=== PATIENT | male | born 1950 | race Caucasian/White ===

== ENCOUNTER 2017-08-01 19:19 | Inpatient (IN) | payer MEDICARE, OTHER ==
[~2017-08-01] VITALS: Ht 182.9 cm; Wt 95.4 kg
[~2017-08-01 19:19] MED LIST: ASPI-586 PO; AVOD0.5CAP PO; Aspirin PO; DILT180T9 PO; LISI1TAB6 PO; LISI1TAB8 PO; MULT-1030 PO
[2017-08-01] MEDS ORDERED: DEXA4TAB PO (20:08)
[2017-08-01] MEDS ORDERED: HYDR-3812 PO (20:08)
[2017-08-01] MEDS ORDERED: LENA25CA PO (20:08)
[2017-08-01] MEDS ORDERED: ACYC800T PO (20:08)
[2017-08-01] MEDS ORDERED: ONDA8TAB12 PO (20:08)
[2017-08-01] MEDS ORDERED: PANT40TA3 PO (20:08)
[2017-08-01] MEDS ORDERED: SULF-222 PO (20:08)
[2017-08-01] MEDS ORDERED: LEVO750T39 (20:08)
[2017-08-01] MEDS ORDERED: NS IV 1000 ML 1,000 ML IV ONE ×2 (20:12→22:03)
[2017-08-01 20:33] LABS: BASOPHILS % (AUTO) 0 % (0-10); EOSINOPHILS % (AUTO) 0 % (0-10); LYMPHOCYTES # (AUTO) 0.3 X 10^3 (1.0-4.0); LYMPHOCYTES % (AUTO) 5 % (12-44); MEAN CORPUSCULAR HEMOGLOBIN 31 PG (25-34); MEAN CORPUSCULAR HGB CONC 36 G/DL (32-36); MEAN CORPUSCULAR VOLUME 87 FL (80-99); MEAN PLATELET VOLUME 10.7 FL (7.4-10.4); MONOCYTES # (AUTO) 0.2 X 10^3 (0.0-1.0); MONOCYTES % (AUTO) 3 % (0-12); NEUTROPHILS # (AUTO) 4.8 X 10^3 (1.8-7.8); NEUTROPHILS % (AUTO) 92 % (42-75); PLATELET COUNT 121 10^3/uL (130-400); RED BLOOD COUNT 3.15 10^6/uL (4.35-5.85); RED CELL DISTRIBUTION WIDTH 14.7 % (10.0-14.5); WHITE BLOOD COUNT 5.2 10^3/uL (4.3-11.0)
[2017-08-01 20:38] LABS: PROTHROMBIN TIME PATIENT 13.7 SEC (12.2-14.7)
--- NOTE | 2017-08-01 20:40 | Diagnostic Imaging Report ---
EXAM: Portable chest. COMPARISON to prior study from July 06, 2015. INDICATION: Weakness and low blood pressure. FINDINGS: There is enlargement of the cardiac silhouette without evidence of failure. There do however appear to be chronic interstitial changes within the lungs. Correlate for smoking history. No focal alveolar consolidation is evident. There is no evidence of an effusion. There is no pneumothorax. No suspicious or acute osseous abnormality is evident. IMPRESSION: 1. Enlarged cardiac silhouette without evidence of failure. 2. Chronic interstitial changes within the lungs suggests interstitial lung disease. Correlate for a smoking history. 3. No focal alveolar consolidation or pleural effusion demonstrated. Dictated by: Dictated on workstation # [id number]
[2017-08-01] MEDS ORDERED: RT-ALBUTEROL/IPRATROPIUM 3 ML (DUONEB) VIAL INH ONE (20:45)
[2017-08-01 20:48] LABS: ALBUMIN 3.3 GM/DL (3.2-4.5); BILIRUBIN,TOTAL 1.2 MG/DL (0.1-1.0); CALCIUM 9.1 MG/DL (8.5-10.1); CREATININE SERUM 1.21 MG/DL (0.60-1.30); POTASSIUM 4.1 MMOL/L (3.6-5.0); TOTAL PROTEIN 5.9 GM/DL (6.4-8.2)
[2017-08-01 21:01] LABS: BAND NEUTROPHILS 4 %; LYMPHOCYTES % (MANUAL) 12 %; NEUTROPHILS % (MANUAL) 81 %; POIKILOCYTOSIS SLIGHT
--- NOTE | 2017-08-01 21:04 | ED General ---
General Chief Complaint: Cardiac/General Problems Stated Complaint: WEAKNESS/LOW BP Nursing Triage Note: patient reports hypotension and generalized weakness today, patient reports was evaluated by oncologist today and given shot. patient reports was hypotensive then too Nursing Sepsis Screen: No Definite Risk Source of Information: Patient, Spouse Exam Limitations: No Limitations History of Present Illness Time Seen by Provider: 20:13 Initial Comments Patient presents to ER by private conveyance with a chief complaint of feeling poorly today. He has a history of multiple myeloma for which she was given a shot by his cancer doctor the day. He says at the doctor's office he was told his blood pressure was a little on the low side and that if he started feeling worse she should present to the ER. He has general malaise, weakness and tiredness. He has a modest cough but it's about gone. For the past week is been treated with Levaquin for a productive cough however never had a x-ray. He is on Bactrim prophylactically. He has no significant coronary history. He doesn't history of paroxysmal atrial fibrillation for which she uses aspirin full dose but does not take any anti-platelet's or blood thinners. He has not felt any palpitations or chest pain or shortness of breath. He does have a history of asthma. He takes albuterol occasionally and does not been using it much recently. His cough is nonproductive at this time. He has no nausea, chills, fever, vomiting, diarrhea, constipation. No rashes. Allergies and Home Medications Allergies Coded Allergies: Penicillins (Unverified Allergy, Unknown, 07/06/15) Home Medications Acyclovir 800 Mg Tablet, (Reported) Aspirin 81 Mg Tablet.dr, 81 MG PO DAILY, (Reported) Dexamethasone 4 Mg Tablet, (Reported) Diltiazem HCl 180 Mg Tab.er.24h, 180 MG PO DAILY, #30 Ref 11 Prescribed by: BRIJESH ELMORE on 07/07/15 1615 Dutasteride 0.5 Mg Cap, 0.5 MG PO DAILY, (Reported) Hydrocodone/Acetaminophen 1 Each Tablet, (Reported) Lenalidomide 25 Mg Capsule, (Reported) Levofloxacin 750 Mg Tablet, (Reported) Lisinopril/Hydrochlorothiazide 1 Each Tablet, 2 TAB PO DAILY, (Reported) TAKES 2 (20-12.5MG) TABLETS Multivits,Ca,Min/Iron/FA/Lycop 1 Each Tablet, 1 TAB PO DAILY, (Reported) Ondansetron HCl 8 Mg Tablet, (Reported) Pantoprazole Sodium 40 Mg Tablet., (Reported) Sulfamethoxazole/Trimethoprim 1 Each Tablet, (Reported) [Aspirin] 325 MG TABEC, 325 MG PO DAILY Prescribed by: BRIJESH ELMORE on 07/07/15 9103 Constitutional: No chills, No diaphoresis, dizziness, No fever, malaise, weakness EENTM: No ear discharge, No ear pain, No blurred vision, No double vision Respiratory: cough, No hemoptysis, No phlegm, No short of breath, No wheezing Cardiovascular: No chest pain, No edema Gastrointestinal: No abdominal pain, No constipation, No diarrhea, No nausea, No vomiting Genitourinary: No discharge, No dysuria, hesitancy Musculoskeletal: No back pain, No joint pain Skin: No pruritus, No rash Psychiatric/Neurological: Denies Headache, Denies Numbness, Denies Paresthesia Past Ofrrnnv-Qbdipf-Ejihpx Hx Patient Social History Alcohol Use: Denies Use Recreational Drug Use: No Smoking Status: Former Smoker Recent Foreign Travel: No Contact w/Someone Who Travel: No Recent Infectious Disease Expo: No Physical Abuse: No Sexual Abuse: No Immunizations Up To Date Tetanus Booster (TDap): Unknown PED Vaccines UTD: No Date of Pneumonia Vaccine: Aug 31, 2007 Surgeries History of Surgeries: Yes (CYST FROM LEFT WRIST REMOVED, CYST ON TESTICLE REMOVED, "MICROWAVE" TURP) Surgeries: Orthopedic, Testicular, Transurethral Resection Respiratory History of Respiratory Disorde: Yes Respiratory Disorders: Asthma Cardiovascular History of Cardiac Disorders: Yes (New onset of AFib 07/06/15) Cardiac Disorders: Hypertension Neurological History of Neurological Disord: No Reproductive System Hx Reproductive Disorders: No Genitourinary Genitourinary Disorders: Benign Prostatic Hyperpl, Prostate Problems Gastrointestinal History of Gastrointestinal Di: Yes Gastrointestinal Disorders: Hiatal Hernia Musculoskeletal History of Musculoskeletal Dis: Yes Musculoskeletal Disorders: Arthritis Endocrine History of Endocrine Disorders: No Cancer History of Cancer: No Psychosocial History of Psychiatric Problem: No Suicide Risk Score: 0 Integumentary History of Skin or Integumenta: No Blood Transfusions History of Blood Disorders: No Adverse Reaction to a Blood Tr: No Family Medical History Family Medial History: Alzheimer's disease 19 MOTHER, , Age:80, Onset:Unknown Prostate problems 19 FATHER, , Age:72, Onset:60 years & older No Family History of: AIDS Physical Exam-Suspected Sepsis Physical Exam Vital Signs Vital Sign - Last 12Hours 08/01/17 20:03 Temp 98.7 Pulse 93 Resp 16 B/P (MAP) 91/53 Pulse Ox 95 O2 Delivery Room Air Capillary Refill : Less Than 3 Seconds Blood Pressure Mean: 66 General Appearance: WD/WN, Moderate Distress Eyes: Bilateral Eye Normal Inspection, Bilateral Eye PERRL, Bilateral Eye EOMI HEENT: PERRL/EOMI, TMs Normal, Normal ENT Inspection, Pharynx Normal Neck: Full Range of Motion, Normal Inspection, Non Tender, Supple Respiratory: Chest Non Tender, Lungs Clear, Normal Breath Sounds, No Accessory Muscle Use, Decreased Breath Sounds Cardiovascular: Regular Rate, Rhythm, No Edema, No Gallop, No Murmur Gastrointestinal: Normal Bowel Sounds, No Organomegaly, No Pulsatile Mass, Non Tender, Soft Extremity: Normal Capillary Refill, Normal Inspection, Non Tender, No Calf Tenderness, No Pedal Edema Neurologic/Psychiatric: Alert, Oriented x3, No Motor/Sensory Deficits, clinical professor II- XII Norm as Tested Skin: normal color, warm/dry Lymphatic: No Adenopathy Focused Exam Evaluation Lactate Level Laboratory Tests 08/01/17 20:20: Lactic Acid Level 2.64*H Lactic Acid Level Laboratory Tests Test 08/01/17 20:20 Lactic Acid Level 2.64 MMOL/L (0.50-2.00) *H Progress/Results/Core Measures Suspected Sepsis Recent Fever Within 48 Hours: No Infection Criteria Present: None New/Unexplained Altered Menta: No Sepsis Screen: No Definite Risk Sepsis Diagnosis: SIRS Temperature:98.7 Pulse: 93 Respiratory Rate: 16 Laboratory Tests 08/01/17 20:20: White Blood Count 5.2 Blood Pressure 91 /53 Mean: 66 Laboratory Tests 08/01/17 20:20: Lactic Acid Level 2.64*H Laboratory Tests 08/01/17 20:20: Creatinine 1.21, INR Comment 1.0, Platelet Count 121L, Total Bilirubin 1.2H 08/01/17 21:40: Creatinine 1.16 Results/Orders Lab Results Laboratory Tests Test 08/01/17 20:20 08/01/17 21:40 Range/Units White Blood Count 5.2 4.3-11.0 10^3/uL Red Blood Count 3.15 L 4.35-5.85 10^6/uL Hemoglobin 9.8 L 13.3-17.7 G/DL Hematocrit 28 L 40-54 % Mean Corpuscular Volume 87 80-99 FL Mean Corpuscular Hemoglobin 31 25-34 PG Mean Corpuscular Hemoglobin Concent 36 32-36 G/DL Red Cell Distribution Width 14.7 H 10.0-14.5 % Platelet Count 121 L 130-400 10^3/uL Mean Platelet Volume 10.7 H 7.4-10.4 FL Neutrophils (%) (Auto) 92 H 42-75 % Lymphocytes (%) (Auto) 5 L 12-44 % Monocytes (%) (Auto) 3 0-12 % Eosinophils (%) (Auto) 0 0-10 % Basophils (%) (Auto) 0 0-10 % Neutrophils # (Auto) 4.8 1.8-7.8 X 10^3 Lymphocytes # (Auto) 0.3 L 1.0-4.0 X 10^3 Monocytes # (Auto) 0.2 0.0-1.0 X 10^3 Eosinophils # (Auto) 0.0 0.0-0.3 10^3/uL Basophils # (Auto) 0.0 0.0-0.1 10^3/uL Neutrophils % (Manual) 81 % Lymphocytes % (Manual) 12 % Monocytes % (Manual) 3 % Band Neutrophils 4 % Poikilocytosis SLIGHT Prothrombin Time 13.7 12.2-14.7 SEC INR Comment 1.0 0.8-1.4 Activated Partial Thromboplast Time 23 L 24-35 SEC Sodium Level 116 *L 117 *L 135-145 MMOL/L Potassium Level 4.1 3.8 3.6-5.0 MMOL/L Chloride Level 90 L 93 L 98-107 MMOL/L Carbon Dioxide Level 17 L 17 L 21-32 MMOL/L Anion Gap 9 7 5-14 MMOL/L Blood Urea Nitrogen 29 H 29 H 7-18 MG/DL Creatinine 1.21 1.16 0.60-1.30 MG/DL Estimat Glomerular Filtration Rate 60 > 60 BUN/Creatinine Ratio 24 25 Glucose Level 114 H 95 70-105 MG/DL Lactic Acid Level 2.64 *H 0.50-2.00 MMOL/L Calcium Level 9.1 8.7 8.5-10.1 MG/DL Magnesium Level 2.0 1.8-2.4 MG/DL Total Bilirubin 1.2 H 0.1-1.0 MG/DL Aspartate Amino Transf (AST/SGOT) 9 5-34 U/L Alanine Aminotransferase (ALT/SGPT) 12 0-55 U/L Alkaline Phosphatase 69 40-136 U/L Troponin I < 0.30 <0.30 NG/ML Total Protein 5.9 L 6.4-8.2 GM/DL Albumin 3.3 3.2-4.5 GM/DL My Orders Orders - DANAYBENITO MILLS Troponin I (08/01/17 20:12) Ekg Tracing (08/01/17 20:12) Saline Lock/Iv-Start (08/01/17 20:12) Monitor-Rhythm Ecg Trace Only (08/01/17 20:12) Magnesium (08/01/17 20:12) Cbc With Automated Diff (08/01/17 20:12) Comprehensive Metabolic Panel (08/01/17 20:12) Lactic Acid Analyzer (08/01/17 20:12) Blood Culture (08/01/17 20:12) Sputum Culture (08/01/17 20:12) Ua Culture If Indicated (08/01/17 20:12) Protime With Inr (08/01/17 20:12) Partial Thromboplastin Time (08/01/17 20:12) O2 (08/01/17 20:12) Vital Signs Adult Sepsis Patie Q1HR (08/01/17 20:12) Remove Rings In Anticipation O (08/01/17 20:12) Ns Iv 1000 Ml (Sodium Chloride 0.9%) (08/01/17 20:12) Chest 1 View, Ap/Pa Only (08/01/17 20:25) Albuterol/Ipra Inhalation Soln (Duoneb I (08/01/17 20:45) Svn Sm Volume Nebulizer Rt-Rfs (08/01/17 20:32) Manual Differential (08/01/17 20:20) Ns Iv 1000 Ml (Sodium Chloride 0.9%) (08/01/17 21:45) Basic Metabolic Panel (08/01/17 21:33) Saline Lock/Iv-Start (08/01/17 22:03) Ns Iv 1000 Ml (Sodium Chloride 0.9%) (08/01/17 22:03) Straight Cath (Urinary) (08/01/17 22:04) Vancomycin Injection (Vancomycin Injecti (08/01/17 22:15) Cefepime Injection (Maxipime Injection) (08/01/17 22:15) Medications Given in ED Current Medications Medications Dose Ordered Sig/Bebe Route Start Time Stop Time Status Last Admin Dose Admin Sodium Chloride 1,000 ml @ 0 mls/hr Q0M ONCE IV 08/01/17 20:12 08/01/17 20:15 DC 08/01/17 20:24 0 MLS/HR Vital Signs/I&O Vital Sign - Last 12Hours 08/01/17 08/01/17 08/01/17 20:03 20:41 20:53 Temp 98.7 Pulse 93 Resp 16 B/P (MAP) 91/53 Pulse Ox 95 96 96 O2 Delivery Room Air Room Air Room Air Intake and Output 08/02/17 00:00 Intake Total 1000 ml Balance 1000 ml Capillary Refill : Less Than 3 Seconds Blood Pressure Mean: 66 Progress Note : Time: 22:08 Progress Note We'll go ahead and obtain a straight catheter for urine before getting the antibiotics. Go ahead and give him fluids despite hyponatremia because his blood pressure is not really well responded to 1 L. Repeat sodium was 117 after the first liter. ECG Initial ECG Impression Date: Aug 01, 2017 Initial ECG Impression Time: 20:25 Initial ECG Rate: 90 Initial ECG Rhythm: Normal Sinus Initial ECG Intervals: Normal Initial ECG Impression: Normal, Nonspecific Changes Initial ECG Comparisson: No Previous ECG Available Comment No ST wave elevation or depression. Diagnostic Imaging Diagonstic Imaging: Xray Plain Films/CT/US/NM/MRI: chest Comments NAME: KIRSTENDILAN L MED REC#: [id number] PHYSICIAN: BENITO JON MD CC: VANCE FRANZ MD; BENITO JON Page 1 of 1 RADIOLOGY REPORT VIA [facility]. [place], [place] CC: VANCE FRANZ MD; BENITO JON Page 1 of 1 RADIOLOGY REPORT NAME: DILAN CURTIS MED REC#: [id number] PT STATUS: REG ER : 1950 PHYSICIAN: BENITO JON MD ADMIT DATE: 08/01/17/ER Signed Date of Exam: 08/01/17 CHEST 1 VIEW, AP/PA ONLY EXAM: Portable chest. COMPARISON to prior study from July 06, 2015. INDICATION: Weakness and low blood pressure. FINDINGS: There is enlargement of the cardiac silhouette without evidence of failure. There do however appear to be chronic interstitial changes within the lungs. Correlate for smoking history. No focal alveolar consolidation is evident. There is no evidence of an effusion. There is no pneumothorax. No suspicious or acute osseous abnormality is evident. IMPRESSION: 1. Enlarged cardiac silhouette without evidence of failure. 2. Chronic interstitial changes within the lungs suggests interstitial lung disease. Correlate for a smoking history. 3. No focal alveolar consolidation or pleural effusion demonstrated. Dictated by: Dictated on workstation # [id number] Dict: 08/01/172033 Trans: 08/01/172057 Interpreted by: VANCE FRANZ MD Electronically signed by: VANCE FRANZ MD 08/01/172057 Reviewed: Reviewed by Me Departure Communication (Admissions) Time/Spoke to Admitting Phy: 22:[address] Jackson she is willing to accept the patient and agrees with the initial antibiotic choices. We have discussed the hyponatremia as well as the likely sepsis and the recent history of Levaquin use. Impression Impression: Primary Impression: Hypotension Qualified Codes: I95.9 - Hypotension, unspecified Additional Impressions: Sepsis Qualified Codes: A41.9 - Sepsis, unspecified organism Hyponatremia Disposition: ADMITTED INPATIENT Condition: Stable Admissions Decision to Admit Reason: Admit from ER (General) Decision to Admit/Date: Aug 01, 2017 Time/Decision to Admit Time: 22:09 Departure-Patient Inst. Referrals: LOUIS CORBIN MD (PCP/Family) Primary Care Physician Copy Copies To 1: LOUIS CORBIN MD, TITUS J Aug 01, 2017 21:04
[2017-08-01] MEDS ORDERED: NS IV 1000 ML 1,000 ML IV SCH (21:45)
[2017-08-01 22:04] LABS: ANION GAP 7 MMOL/L (5-14); BLOOD UREA NITROGEN 29 MG/DL (7-18); BUN/CREATININE RATIO 25; CALCIUM 8.7 MG/DL (8.5-10.1); CARBON DIOXIDE 17 MMOL/L (21-32); CHLORIDE 93 MMOL/L (98-107); CREATININE SERUM 1.16 MG/DL (0.60-1.30); GFR ESTIMATED > 60; GLUCOSE 95 MG/DL (70-105); POTASSIUM 3.8 MMOL/L (3.6-5.0)
[2017-08-01 22:08] LABS: SODIUM 117 MMOL/L (135-145)
[2017-08-01] MEDS ORDERED: CEFEPIME INJECTION 2,000 MG in NS (IVPB) 50 ML IV ONE (22:15)
[2017-08-01] MEDS ORDERED: VANCOMYCIN INJECTION 1,000 MG in NS (IVPB) 250 ML IV ONE (22:15)
[2017-08-01 22:26] LABS: KETONES,URINE NEGATIVE (NEGATIVE); LEUKOCYTE ESTERASE ,URINE 1+ (NEGATIVE); NITRITE,URINE NEGATIVE (NEGATIVE); PH,URINE 5 (5-9); PROTEIN,URINE 2+ (NEGATIVE); UROBILINOGEN,URINE 1 MG/DL (NORMAL)
[2017-08-01 22:45] LABS: BILIRUBIN,URINE 1+ (NEGATIVE)
[2017-08-01 23:00] VITALS: BP 110/63
[2017-08-01] MEDS ORDERED: VANCOMYCIN 1000 MG/VIAL ONE (23:10)
[2017-08-01] MEDS ORDERED: NS (IVPB) 250 ML ONE (23:11)
[2017-08-01 23:15] VITALS: BP 92/53
[2017-08-01] MEDS ORDERED: ONDANSETRON 4 MG/2 ML (SDV) Z0FRAN IV PRN (23:15)
[2017-08-01] MEDS ORDERED: NOREPINEPHRINE 4 MG in D5W 250 ML (IVPB) 250 ML IV SCH (23:15)
[2017-08-01] MEDS ORDERED: ACETAMINOPHEN 500 MG TAB (TYLENOL) PO PRN (23:15)
[2017-08-01] MEDS ORDERED: CATHETER FLUSH 10 ML SYR IV PRN (23:15)
[2017-08-01 23:30] VITALS: BP 95/53
[2017-08-01] MEDS ORDERED: NS IV 500 ML 500 ML IV ONE (23:30)
[2017-08-01 23:45] VITALS: BP 94/52
[2017-08-01] MEDS: CEFEPIME 2 GM/NS 50 ML IVPB IV SCH ×2 (23:51)
[2017-08-01] MEDS: NS IV 1000 ML 1,000 ML IV SCH (23:52)
[2017-08-02] VITALS (24 sets, daily range): BP systolic 76–128; BP diastolic 47–91
[2017-08-02 00:10] LABS: ANION GAP 7 MMOL/L (5-14); BLOOD UREA NITROGEN 30 MG/DL (7-18); BUN/CREATININE RATIO 26; CALCIUM 8.5 MG/DL (8.5-10.1); CARBON DIOXIDE 17 MMOL/L (21-32); CHLORIDE 94 MMOL/L (98-107); CREATININE SERUM 1.14 MG/DL (0.60-1.30); GFR ESTIMATED > 60; GLUCOSE 81 MG/DL (70-105); POTASSIUM 4.1 MMOL/L (3.6-5.0)
[2017-08-02 00:11] LABS: SODIUM 118 MMOL/L (135-145)
[2017-08-02 04:14] LABS: BASOPHILS % (AUTO) 0 % (0-10); EOSINOPHILS % (AUTO) 0 % (0-10); LYMPHOCYTES # (AUTO) 0.2 X 10^3 (1.0-4.0); LYMPHOCYTES % (AUTO) 5 % (12-44); MEAN CORPUSCULAR HEMOGLOBIN 31 PG (25-34); MEAN CORPUSCULAR HGB CONC 35 G/DL (32-36); MEAN CORPUSCULAR VOLUME 88 FL (80-99); MONOCYTES # (AUTO) 0.5 X 10^3 (0.0-1.0); MONOCYTES % (AUTO) 11 % (0-12); NEUTROPHILS # (AUTO) 4.3 X 10^3 (1.8-7.8); NEUTROPHILS % (AUTO) 85 % (42-75); PLATELET COUNT 112 10^3/uL (130-400); RED BLOOD COUNT 2.95 10^6/uL (4.35-5.85); RED CELL DISTRIBUTION WIDTH 14.9 % (10.0-14.5); WHITE BLOOD COUNT 5.1 10^3/uL (4.3-11.0)
[2017-08-02 04:35] LABS: ANION GAP 6 MMOL/L (5-14); BLOOD UREA NITROGEN 28 MG/DL (7-18); BUN/CREATININE RATIO 26; CALCIUM 8.5 MG/DL (8.5-10.1); CARBON DIOXIDE 18 MMOL/L (21-32); CHLORIDE 95 MMOL/L (98-107); CREATININE SERUM 1.06 MG/DL (0.60-1.30); GFR ESTIMATED > 60; GLUCOSE 64 MG/DL (70-105); MAGNESIUM 2.3 MG/DL (1.8-2.4); PHOSPHORUS 2.2 MG/DL (2.3-4.7); POTASSIUM 4.4 MMOL/L (3.6-5.0)
[2017-08-02 04:37] LABS: SODIUM 119 MMOL/L (135-145)
[2017-08-02] MEDS: NS IV 1000 ML 1,000 ML IV SCH ×2 (05:48→15:50)
[2017-08-02] MEDS: POTASSIUM CL 10MEQ/50ML IVPB 50 ML IV SCH (06:10)
[2017-08-02] MEDS: MAGNESIUM 1 GM/100 ML IVPB 100 ML IV SCH (06:10)
[2017-08-02] MEDS: KCL 20 MEQ TAB (K-DUR) PO SCH (06:10)
[2017-08-02] MEDS: CATHETER FLUSH 10 ML SYR IV SCH ×2 (06:11→14:32)
[2017-08-02] MEDS: VANCOMYCIN 1250 MG/NS 250 ML IVPB IV SCH ×4 (08:49→20:30)
--- NOTE | 2017-08-02 09:20 | Diagnostic Imaging Report ---
CLINICAL INDICATION: Follow-up sepsis. EXAM: Portable chest x-ray upright view. COMPARISON: Portable chest x-ray upright view dated 08/01/2017. FINDINGS: There is mild atelectasis left lung base and right lung base. Otherwise, lungs are clear. There is no pleural effusion or pneumothorax. There is stable cardiomegaly with no significant pulmonary vascular congestion. The remainder of this exam shows no significant interval change compared to the prior study of comparison. IMPRESSION: 1: Stable bibasilar atelectasis with no interval lung infiltrate. 2: Stable cardiomegaly with no significant pulmonary vascular congestion. Dictated by: Dictated on workstation # [id number]
[2017-08-02] MEDS ORDERED: ALLO300T2 PO (11:09)
[2017-08-02] MEDS ORDERED: DOCU-143 PO (11:09)
[2017-08-02] MEDS ORDERED: GUAI-813 PO (11:09)
[2017-08-02] MEDS ORDERED: FLUT9.9S NS (11:09)
[2017-08-02] MEDS ORDERED: RT-ALBUINH IH (11:09)
[2017-08-02] MEDS ORDERED: POLY17PO6 PO (11:09)
[2017-08-02] MEDS ORDERED: CHOL500050 PO (11:09)
--- NOTE | 2017-08-02 11:24 | History & Physical-Hospitalist ---
HPI History of Present Illness: HPI/Chief Complaint CC: Sepsis with hypotension HPI: This is a 67-year-old white male clinic patient of Dr. Connelly and Viktoria and Dr. Chambers at [facility] along with Dr. Santana at [facility] who presented to the emergency room after feeling very badly after receiving cancer treatment for MM yesterday afternoon. Dr. Santana had recommended holding lisinopril home medicine due to low blood pressure yesterday and he was found to have very low blood pressure and evidence of sepsis with elevated lactic acid yesterday in the ER. He was empirically placed on IV antibiotics of vancomycin and Cefepime and Levophed and has dramatically improved since admission. Levophed has been DC and CXR revealed ATX but no infiltrate so ordered Nebs and IS and noted that he had just completed Levaquin abx this week for empiric treatment of bronchitis. Dr Delacruz has been consulted and will see the patient. I have initiated a fluid restriction of 750cc/day. Source: patient, family, RN/MD Exam Limitations: no limitations Date Seen 08/02/17 Time Seen by Provider: 10:00 Attending Physician Ana Messina Wen-Chou MD Referring Physician Date of Admission Aug 01, 2017 at 22:10 Home Medications & Allergies Home Medications Reviewed patient Home Medication Reconciliation Form Allergies Allergies Coded Allergies Penicillins (Unverified Allergy, Unknown, 07/06/15) Past Dtyqmrm-Xpugde-Qzvoez Hx Patient Social History Marrital Status: Employed/Student: retired ([employer]) Alcohol Use: Denies Use Recreational Drug Use: No Smoking Status: Former Smoker Physical Abuse Screen: No Sexual Abuse: No Recent Foreign Travel: No Contact w/other who traveled: No Recent Infectious Disease Expo: No Immunizations Up To Date Tetanus Booster (TDap): Unknown Pediatric: No Date of Pneumonia Vaccine: Aug 31, 2007 Seasonal Allergies Seasonal Allergies: No Surgeries Yes (CYST FROM LEFT WRIST REMOVED, CYST ON TESTICLE REMOVED, "MICROWAVE" TURP) Orthopedic, Testicular, Transurethral Resection Respiratory Yes Asthma Cardiovascular Yes (New onset of AFib 07/06/15) Hypertension Neurological No Reproductive System Hx Reproductive Disorders: No Genitourinary Yes Benign Prostatic Hyperpl, Prostate Problems Gastrointestinal Yes Chronic Constipation, Hiatal Hernia Musculoskeletal Yes Arthritis, Fractures (sternal fracture spontaneous) Endocrine History of Endocrine Disorders: No Cancer Yes (MM 06/16) Psychosocial History of Psychiatric Problem: No Integumentary History of Skin or Integumenta: No Blood Transfusions History of Blood Disorders: No Adverse Reaction to a Blood Tr: No Family Medical History Family Hx: Alzheimer's disease 19 MOTHER, , Age:80, Onset:Unknown Prostate problems 19 FATHER, , Age:72, Onset:60 years & older No Family History of: AIDS Review of Systems Constitutional: see HPI, dizziness, weakness EENTM: no symptoms reported Respiratory: no symptoms reported Cardiovascular: no symptoms reported Gastrointestinal: no symptoms reported Genitourinary: decreased output Musculoskeletal: joint pain Skin: no symptoms reported Psychiatric/Neurological: No Symptoms Reported All Other Systems Reviewed Negative Unless Noted: Yes Physical Exam Physical Exam Vital Signs Vital Sign - Last 12Hours 08/01/17 20:03 Temp 98.7 Pulse 93 Resp 16 B/P (MAP) 91/53 Pulse Ox 95 O2 Delivery Room Air Capillary Refill : Less Than 3 Seconds General Appearance: No Apparent Distress, WD/WN, Chronically ill, Other ( anxious) Eyes: Bilateral Eye Normal Inspection, Bilateral Eye PERRL HEENT: PERRL/EOMI, Normal ENT Inspection, Pharynx Normal Neck: Full Range of Motion, Normal Inspection, Non Tender, Supple, Carotid Bruit Respiratory: Chest Non Tender, Lungs Clear, Normal Breath Sounds, No Accessory Muscle Use, No Respiratory Distress Cardiovascular: Regular Rate, Rhythm, No Edema, No Gallop, No JVD, No Murmur, Normal Peripheral Pulses Gastrointestinal: Normal Bowel Sounds, No Organomegaly, No Pulsatile Mass, Non Tender, Soft Back: Normal Inspection, No CVA Tenderness, No Vertebral Tenderness Extremity: Normal Capillary Refill, Normal Inspection, Normal Range of Motion, Non Tender, No Calf Tenderness, No Pedal Edema Neurologic/Psychiatric: Alert, Oriented x3, No Motor/Sensory Deficits, Normal Mood/Affect Skin: Normal Color, Warm/Dry Lymphatic: No Adenopathy Results Results/Procedures Lab Laboratory Tests 08/01/17 20:20 08/01/17 21:40 08/01/17 23:37 08/02/17 03:52 Assessment/Plan Admission Diagnosis Assessment: Sepsis of uncertain source but could be related to medications given yesterday and cancer Center for multiple myeloma but atelectasis on chest x-ray and recently completed Levaquin antibiotic for presumed bronchitis Severe hyponatremia of 116 likely medication related placed on fluid restriction and gentle IV fluids of normal saline and improved to 119 today History of atrial fibrillation maintain on Cardizem and aspirin History of asthma and former smoking Multiple myeloma diagnosed May 2017 induction initiated at [facility] BPH history Hypertension as an outpatient generally before this episode held lisinopril per cancer doctor recommendation starting yesterday 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
[2017-08-02] MEDS ORDERED: RT-ALBUTEROL SULF 2.5 MG/3 ML PRE-MIX VIAL IH PRN (11:30)
[2017-08-02] MEDS ORDERED: ONDANSETRON 8 MG (ZOFRAN) ORAL DISSOLVE TAB PO PRN (11:45)
[2017-08-02] MEDS ORDERED: PATIENT MAY USE OWN MEDS, ALL MC SCH (12:15)
[2017-08-02] MEDS ORDERED: PANTOPRAZOLE 40 MG (PROTONIX) TAB PO ONE (12:20)
[2017-08-02] MEDS ORDERED: DOCUSATE SODIUM 100 MG (COLACE) CAP PO ONE (12:20)
[2017-08-02] MEDS ORDERED: FINASTERIDE (PROSCAR) 5 MG TAB PO ONE (12:20)
[2017-08-02] MEDS ORDERED: ASPIRIN E.C. 325 MG (ECOTRIN) TABLET PO ONE (12:21)
[2017-08-02] MEDS ORDERED: POLYETHYLENE GLYCOL 17 GM (MIRALAX) PACK ONE (12:21)
[2017-08-02] MEDS ORDERED: ALLOPURINOL 300 MG (ZYLOPRIM) TAB ONE (12:21)
[2017-08-02] MEDS ORDERED: DILTIAZEM 180 MG (CARDIZEM CD) CAP PO ONE (12:21)
[2017-08-02] MEDS ORDERED: ACYCLOVIR 400 MG TABLET (ZOVIRAX) PO ONE (12:28)
[2017-08-02] MEDS: CEFEPIME 2 GM/NS 50 ML IVPB IV SCH ×4 (12:30→22:45)
[2017-08-02] MEDS: DOCUSATE SODIUM 100 MG (COLACE) CAP PO SCH ×2 (12:31→20:31)
[2017-08-02] MEDS: POLYETHYLENE GLYCOL 17 GM (MIRALAX) PACK PO SCH (12:33)
[2017-08-02] MEDS: DILTIAZEM 180 MG (CARDIZEM CD) CAP PO SCH (12:33)
[2017-08-02] MEDS: PANTOPRAZOLE 40 MG (PROTONIX) TAB PO SCH (12:35)
[2017-08-02] MEDS: ALLOPURINOL 300 MG (ZYLOPRIM) TAB PO SCH (12:36)
[2017-08-02] MEDS: ASPIRIN E.C. 325 MG (ECOTRIN) TABLET PO SCH (12:36)
[2017-08-02] MEDS: FINASTERIDE (PROSCAR) 5 MG TAB PO SCH (12:36)
[2017-08-02] MEDS: ACYCLOVIR 400 MG TABLET (ZOVIRAX) PO SCH ×2 (12:37→20:31)
[2017-08-02] MEDS: FLUTICASONE NASAL SPRAY (FLONASE) 16 GM BTL NS SCH ×2 (12:43→20:30)
[2017-08-02] MEDS ORDERED: RT-ALBUTEROL SULF 2.5 MG/3 ML PRE-MIX VIAL IH SCH (14:00)
[2017-08-02] MEDS: guaiFENesin/CODEINE (ROBITUSSIN AC) 10ML UDC PO PRN (15:18)
[2017-08-02] MEDS: CALCIUM CARBONATE 500 MG (TUMS) TAB.CHEW PO PRN (20:31)
[2017-08-03] VITALS (15 sets, daily range): BP systolic 98–129; BP diastolic 59–78
[2017-08-03] MEDS: CATHETER FLUSH 10 ML SYR IV SCH ×4 (00:16→21:40)
[2017-08-03] MEDS: CALCIUM CARBONATE 500 MG (TUMS) TAB.CHEW PO PRN ×3 (02:00→21:32)
[2017-08-03] MEDS: NS IV 1000 ML 1,000 ML IV SCH (02:21)
[2017-08-03] MEDS: HYDROcodone/APAP 5 MG/325 MG (LORTAB) TAB PO PRN ×2 (02:21→21:33)
[2017-08-03 04:16] LABS: BASOPHILS % (AUTO) 0 % (0-10); EOSINOPHILS % (AUTO) 1 % (0-10); LYMPHOCYTES # (AUTO) 0.4 X 10^3 (1.0-4.0); LYMPHOCYTES % (AUTO) 22 % (12-44); MEAN CORPUSCULAR HEMOGLOBIN 32 PG (25-34); MEAN CORPUSCULAR HGB CONC 35 G/DL (32-36); MEAN CORPUSCULAR VOLUME 89 FL (80-99); MEAN PLATELET VOLUME 12.3 FL (7.4-10.4); MONOCYTES # (AUTO) 0.3 X 10^3 (0.0-1.0); MONOCYTES % (AUTO) 16 % (0-12); NEUTROPHILS # (AUTO) 1.2 X 10^3 (1.8-7.8); NEUTROPHILS % (AUTO) 62 % (42-75); PLATELET COUNT 64 10^3/uL (130-400); RED BLOOD COUNT 2.86 10^6/uL (4.35-5.85); RED CELL DISTRIBUTION WIDTH 15.1 % (10.0-14.5)
[2017-08-03 04:37] LABS: ANION GAP 6 MMOL/L (5-14); BLOOD UREA NITROGEN 17 MG/DL (7-18); BUN/CREATININE RATIO 22; CALCIUM 8.5 MG/DL (8.5-10.1); CARBON DIOXIDE 16 MMOL/L (21-32); CHLORIDE 102 MMOL/L (98-107); CREATININE SERUM 0.78 MG/DL (0.60-1.30); GFR ESTIMATED > 60; GLUCOSE 85 MG/DL (70-105); MAGNESIUM 2.3 MG/DL (1.8-2.4); PHOSPHORUS 1.9 MG/DL (2.3-4.7)
[2017-08-03 04:40] LABS: SODIUM 124 MMOL/L (135-145)
[2017-08-03] MEDS: KCL 20 MEQ TAB (K-DUR) PO SCH (06:02)
[2017-08-03] MEDS: MAGNESIUM 1 GM/100 ML IVPB 100 ML IV SCH (06:02)
[2017-08-03] MEDS: POTASSIUM CL 10MEQ/50ML IVPB 50 ML IV SCH (06:02)
[2017-08-03] MEDS ORDERED: TROUGH ORDER-PHARMACY XX NR (08:00)
[2017-08-03] MEDS: PANTOPRAZOLE 40 MG (PROTONIX) TAB PO SCH (08:50)
[2017-08-03] MEDS: ACYCLOVIR 400 MG TABLET (ZOVIRAX) PO SCH ×2 (08:51→21:32)
[2017-08-03] MEDS: DOCUSATE SODIUM 100 MG (COLACE) CAP PO SCH ×2 (08:52→21:32)
[2017-08-03] MEDS: ASPIRIN E.C. 325 MG (ECOTRIN) TABLET PO SCH (08:52)
[2017-08-03] MEDS: DILTIAZEM 180 MG (CARDIZEM CD) CAP PO SCH (08:52)
[2017-08-03] MEDS: ALLOPURINOL 300 MG (ZYLOPRIM) TAB PO SCH (08:53)
[2017-08-03] MEDS: FINASTERIDE (PROSCAR) 5 MG TAB PO SCH (08:53)
[2017-08-03] MEDS: VANCOMYCIN 1250 MG/NS 250 ML IVPB IV SCH ×4 (08:54→21:52)
[2017-08-03] MEDS: POLYETHYLENE GLYCOL 17 GM (MIRALAX) PACK PO SCH (08:54)
[2017-08-03] MEDS: FLUTICASONE NASAL SPRAY (FLONASE) 16 GM BTL NS SCH ×2 (09:02→21:34)
--- NOTE | 2017-08-03 09:05 | Progress Note-Standard ---
Standard Progress Note Progress Notes/Assess & Plan Date Seen by Provider: Aug 03, 2017 Time Seen by Provider: 08:58 Progress/Assessment & Plan 67-year-old male with recent diagnosis of IgG kappa multiple myeloma, currently on chemotherapy with VRD regimen D#12, admitted with cough and increasing weakness. Noted have sepsis syndrome with hypotension, elevated lactic acid level but no definite source of infection or fever. Also with significant hyponatremia and on free water restriction as well as normal saline IV. Cultures negative so far. Patient is on broad-spectrum antibiotics with cefepime and vancomycin. Continuing on prophylactic acyclovir. Patient is feeling much better today. Blood pressure in the low-normal range. Cough improved significantly. Probable atrial fibrillation on monitor. Exam stable from yesterday. Labs noted with WBC 2.0 and ANC 1.2, hemoglobin 9.0 and platelet count of 64,000. Sodium has improved to 124 with rest of the chemistry panel normal. Chest x-ray with bibasilar atelectasis. Lower blood counts probably due to a combination of the hemodilution as well as chemotherapy effect. Advised to continue Revlimid today. Recheck lab work tomorrow and if lower, we will recommend to hold Revlimid. May hold prophylactic Bactrim. Continue incentive spirometry and increase activity as tolerated. We will follow with you. VALERIO SUNSHINE Aug 03, 2017 09:05
--- NOTE | 2017-08-03 11:12 | Progress Note-Hospitalist ---
Progress Note HPI/CC on Admission CC: Sepsis with hypotension HPI: This is a 67-year-old white male clinic patient of Dr. Hernandez and Dr. Chambers at [facility] along with Dr. Santana at [facility] who presented to the emergency room after feeling very badly after receiving cancer treatment for MM yesterday afternoon. Dr. Santana had recommended holding lisinopril home medicine due to low blood pressure yesterday and he was found to have very low blood pressure and evidence of sepsis with elevated lactic acid yesterday in the ER. He was empirically placed on IV antibiotics of vancomycin and Cefepime and Levophed and has dramatically improved since admission. Levophed has been DC and CXR revealed ATX but no infiltrate so ordered Nebs and IS and noted that he had just completed Levaquin abx this week for empiric treatment of bronchitis. Dr Delacruz has been consulted and will see the patient. I have initiated a fluid restriction of 750cc/day. Progress Notes/Assess & Plan Date Seen 08/03/17 Time Seen by Provider: 10:45 Admission Dx/Process Assessment: Sepsis of uncertain source but could be related to medications given yesterday and [facility] for multiple myeloma but atelectasis on chest x-ray and recently completed Levaquin antibiotic for presumed bronchitis Severe hyponatremia of 116 likely medication related placed on fluid restriction and gentle IV fluids of normal saline and improved to 119 today History of atrial fibrillation maintain on Cardizem and aspirin History of asthma and former smoking Multiple myeloma diagnosed May 2017 induction initiated at [facility] BPH history Hypertension as an outpatient generally before this episode held lisinopril per cancer doctor recommendation starting yesterday 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 Diagonsis/Assessment & Plan Patient doing much better Good urinary output Bowels are moving Home medications were reconciled I appreciate oncology's help Denies any pain Lab results evaluated Sodium level up to 124 Will transfer to fourth floor No fever, vital signs stable, pleasant, family at bedside Regular rate rhythm, clear to auscultation bilaterally but crackles in the bases no change from yesterday No edema Assessment: Sepsis of uncertain source but could be related to medications given Friday at [facility] Center for multiple myeloma but atelectasis on chest x-ray and recently completed Levaquin antibiotic for presumed bronchitis is likely a factor Severe hyponatremia of 116 likely medication related placed on fluid restriction and gentle IV fluids of normal saline and improved to 124 today History of atrial fibrillation maintain on Cardizem and aspirin consulting Dr Zepeda History of asthma and former smoking using Nebs and IS Multiple myeloma diagnosed May 2017 induction initiated at [facility] BPH history Hypertension as an outpatient generally before this episode held lisinopril per cancer doctor recommendation starting Friday 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
[2017-08-03] MEDS: CEFEPIME 2 GM/NS 50 ML IVPB IV SCH ×4 (12:05→23:26)
--- NOTE | 2017-08-03 12:23 | Diagnostic Imaging Report ---
INDICATION: Shortness of breath COMPARISON: 08/02/17 FINDINGS: Single view of the chest demonstrates cardiac enlargement without pulmonary edema. There is continued basilar atelectasis and/or scarring. There is no effusion. No pneumothorax. IMPRESSION: 1. Cardiac enlargement without pulmonary edema 2. Stable scarring and/or atelectasis. Dictated by: Dictated on workstation # [id number]
--- NOTE | 2017-08-03 12:34 | Consultation-Cardiology ---
HPI-Cardiology Cardiology Consultation: Date of Consultation 08/03/17 Date of Admission Attending Physician Ana Jackson DO Admitting Physician Rafael Connelly MD Consulting Physician Yoselin ZEPEDA MD HPI: Time Seen by Provider: 12:50 Chief Complaint: Sepsis This is a 67-year-old gentleman with history of multiple myeloma on chemotherapy. His been admitted for hypotension and possible sepsis. He has history of atrial fibrillation and is on full aspirin and Cardizem. Cardiology consult was recommended. The patient denies having diabetes, hypertension, any other cardiac or peripheral disease. He also has no history of stroke. The patient does not have any cardiac history at this point in time. Review of Systems-Cardiology Review of Systems Constitutional: malaise, tiredness Eyes: No As described under HPI, No no symptoms reported, No blindness, No blurred vision, No contact lenses, No drainage, No decreased acuity, No foreign body sensation, No glasses, No inflammation, No pain, No photophobia, No previous injury, No shadows, No tunnel vision, No other, No vision change Ears/Nose/Throat: No As described under HPI, No no symptoms reported, No chronic hearing loss, No epistaxis, No ear discharge, No ear pain, No loose teeth, No mouth pain, No mouth swelling, No nasal drainage, No nose pain, No recent hearing loss, No throat pain, No throat swelling, No ulcerations, No other Respiratory: No no symptoms reported, No As described under HPI, No cough, No orthopnea, No shortness of breath, No SOB with excertion, No SOB at rest, No stridor, No wheezing, No other Cardiovascular: No no symptoms reported, No As described under HPI, No chest pain, No edema, No irregular heart rate, No lightheadedness, No palpitations, No syncope, No other Gastrointestinal: No no symptoms reported, No As described under HPI, No abdomen distended, No abdominal pain, No blood streaked bowels, No constipation , No diarrhea, No difficulty swallowing, No nausea, No poor appetite, No poor fluid intake, No rectal bleeding, No vomiting, No other, No nausea/vomiting/ diarrhea, No stool coloration changes Genitourinary: No no symptoms reported, No As described under HPI, No burning, No dysuria, No discharge, No frequency, No flank pain, No hematuria, No incontinence, No pain, No urgency, No other, No urine frequency changes, No urine coloration changes Musculoskeletal: No no symptoms reported, No As describe under HPI, No back pain, No gout, No joint pain, No joint swelling, No muscle pain, No muscle stiffness, No neck pain, No other Skin: No no symptoms reported, No As described under HPI, No change in color, No change in hair/nails, No dryness, No lesions, No lumps, No rash, No other, No skin related problems, No ulcerations, No rash on exposed areas, No ulcerations on exposed areas Psychiatric/Neurological: No no symptoms reported, No As described under HPI, No anxiety, No depression, No emotional problems, No headache, No numbness, No pre-existing deficit, No seizure, No tingling, No tremors, No weakness, No other , No focal weakness, No syncope All Other Systems Reviewed Negative Unless Noted: Yes [id number] Hx Patient Social History Marrital Status: Employed/Student: retired ([employer]) Alcohol Use: Denies Use Recreational Drug Use: No Smoking Status: Former Smoker Recent Foreign Travel: No Recent Infectious Disease Expo: No Hospitalization with Isolation: Denies Physical Abuse Screen: No Sexual Abuse: No Immunizations Up To Date Tetanus Booster (TDap): Unknown Date of Pneumonia Vaccine: Aug 31, 2007 Past Medical History PMH As described under Assessment. Family Medical History Family History: Alzheimer's disease 19 MOTHER, , Age:80, Onset:Unknown Prostate problems 19 FATHER, , Age:72, Onset:60 years & older No Family History of: AIDS Allergies and Home Medications Allergies Coded Allergies: Penicillins (Unverified Allergy, Unknown, 07/06/15) Home Medications Acyclovir 800 Mg Tablet, 800 MG PO BID, (Reported) Albuterol Sulfate 1 Puff Puff, 2 PUFF IH NEEDED PRN for SHORTNESS OF BREATH, (Reported) 1 PUFF = 90 MCG Allopurinol 300 Mg Tablet, 300 MG PO DAILY, (Reported) Cholecalciferol (Vitamin D3) 5,000 Unit Capsule, 5,000 UNIT PO FRIDAYS, ( Reported) Dexamethasone 4 Mg Tablet, 40 MG PO WEDNESDAYS, (Reported) Diltiazem HCl 180 Mg Tab.er.24h, 180 MG PO DAILY, #30 Ref 11 Prescribed by: BRIJESH HERNANDEZ on 07/07/15 1615 Docusate Sodium 100 Mg Capsule, 100 MG PO BID, (Reported) Dutasteride 0.5 Mg Cap, 0.5 MG PO DAILY, (Reported) Fluticasone Propionate 9.9 Ml [place].susp, 1 SPRAY NS BID, (Reported) Guaifenesin/Codeine Phosphate 118 Ml Liquid, 2 TSP PO Q12H PRN for COUGH, ( Reported) Hydrocodone/Acetaminophen 1 Each Tablet, 1 TAB PO Q8H PRN for PAIN-MODERATE TO SEVERE, (Reported) Lenalidomide 25 Mg Capsule, 25 MG PO DAILY for 14 Days, (Reported) Ondansetron HCl 8 Mg Tablet, 8 MG PO Q8H PRN for NAUSEA/VOMITING-1ST LINE, ( Reported) Pantoprazole Sodium 40 Mg Tablet.dr, 40 MG PO DAILY, (Reported) Polyethylene Glycol 3350 17 Gm Powd.pack, 8.5 GM PO DAILY, (Reported) Sulfamethoxazole/Trimethoprim 1 Each Tablet, 1 TAB PO BID, (Reported) take twice a day two time weekly on friday and friday [Aspirin] 325 MG TABEC, 325 MG PO DAILY Prescribed by: BRIJESH HERNANDEZ on 07/07/15 1615 Physical Exam-Cardiology Physical Exam Vital Signs/I&O Vital Sign - Last 12Hours 08/03/17 08/03/17 08/03/17 08/03/17 02:00 03:00 04:00 04:00 Temp 98.0 Pulse 88 89 90 Resp 19 9 12 B/P (MAP) 125/78 98/66 128/73 Pulse Ox 94 95 95 97 O2 Delivery Room Air Room Air Room Air Room Air 08/03/17 08/03/17 08/03/17 08/03/17 05:00 06:00 07:00 08:00 Temp 96.1 Pulse 75 83 96 Resp 8 15 B/P (MAP) 118/65 101/65 Pulse Ox 96 96 O2 Delivery Room Air Room Air Room Air 08/03/17 08:30 Pulse Ox 95 O2 Delivery Room Air Capillary Refill : Less Than 3 Seconds Constitutional: No appears stated age, No AAO x 3, No apparent distress, No PERRL, No well-developed, No well-nourished, No other HEENT: No PERRL, No normal ENT inspection, No TMs normal, No pharynx normal, No scleral icterus (R), No scleral icterus (L), No pale conjunctivae (R), No pale conjunctivae (L), No photophobia, No TM abnormal (R), No TM abnormal (L), No pharyngeal erythema, No tonsillar exudate, No other, No discharge, No EOMI, No hearing is well preserved, No hard of hearing, No oral hygience is good, No ulceration, No xanthelasmas are seen Neck: No non-tender, No full range of motion, No supple, No normal inspection, No carotid bruit, No limited range of motion, No lymphadenopathy (R), No lymphadenopathy (L), No tender lateral, No tender midline, No thyromegaly, No other, No carotid pulses are 2 + bilaterally, No with good upstrokes Respiratory: No accessory muscle use, No respiratory distress, No chest tender , No chest expansion is symmetric, No chest is bilaterally symmetric, No lungs clear to percussion, No lungs clear to auscultation, No crackles, No rhonchi, No rales, No stridor, No wheezing, No pleural rub, No other Cardiovascular: regular rate-rhythm, tachycardia, S1 and S2, other (occasional irregular pulse) Gastrointestinal: No tender, No soft, No round, No distended, No pulsatile mass , No organomegaly, No guarding, No rebound, No tenderness, No hernia, No mass, No audible bowel sounds, No abnormal bowel sounds, No abdominal bruits, No spleenomegaly, No other Rectal: deferred Extremities: No normal range of motion, No non-tender, No normal inspection, No pedal edema, No calf tenderness, No normal capillary refill, No pelvis stable , No calf tenderness, No inflammation, No pedal edema, No slow capillary refill , No swelling, No other, No abrasion, No clubbing, No cyanosis, No ecchymosis, No laceration, No no lower extremity edema bilateral, No significant edema, No tenderness, No wound Neurologic/Psychiatric: No liquid fertilizer servicer II-XII nml as tested, No no motor/sensory deficits, No alert, No normal mood/affect, No oriented x 3, No abnormal cerebellar tests, No abnormal liquid fertilizer servicer II-XII, No abnormal gait, No aphasia, No EOM palsy, No facial droop, No motor weakness, No sensory deficit, No depressed affect, No disoriented x 3, No other, No grossly intact, No power is 5/5 both on sides Skin: normal color, warm/dry Data Review Labs Laboratory Tests 08/03/17 03:50: White Blood Count 2.0L, Red Blood Count 2.86L, Hemoglobin 9.0L, Hematocrit 25L, Mean Corpuscular Volume 89, Mean Corpuscular Hemoglobin 32, Mean Corpuscular Hemoglobin Concent 35, Red Cell Distribution Width 15.1H, Platelet Count 64L, Mean Platelet Volume 12.3H, Neutrophils (%) (Auto) 62, Lymphocytes (%) (Auto) 22 , Monocytes (%) (Auto) 16H, Eosinophils (%) (Auto) 1, Basophils (%) (Auto) 0, Neutrophils # (Auto) 1.2L, Lymphocytes # (Auto) 0.4L, Monocytes # (Auto) 0.3, Eosinophils # (Auto) 0.0, Basophils # (Auto) 0.0, Sodium Level 124*L, Potassium Level 4.0, Chloride Level 102, Carbon Dioxide Level 16L, Anion Gap 6, Blood Urea Nitrogen 17, Creatinine 0.78, Estimat Glomerular Filtration Rate > 60, BUN/ Creatinine Ratio 22, Glucose Level 85, Calcium Level 8.5, Phosphorus Level 1.9L , Magnesium Level 2.3 08/03/17 07:50: Vancomycin Level Trough 13.2 Microbiology 08/01/17 Blood Culture - Preliminary, Resulted No growth 08/01/17 Urine Culture - Final, Complete NO GROWTH ECG Impression ECG Initial ECG Rhythm: Normal Sinus, PAC A/P-Cardiology Assessment/Admission Diagnosis Sepsis, multiple myeloma, hypertension. Paroxysmal atrial fibrillation, PACs Plan Deferred treatment of multiple myeloma, sepsis or hypotension to the primary team. It is likely due to sepsis and will require.spectrum antibiotics and generous IV fluids. The patient has history of paroxysmal atrial fibrillation. His CHADSVASC score is 1 for age 67. I discussed stroke prevention and risk of bleeding with the patient and family. We will continue full aspirin and Cardizem for rate control. However currently the patient is sinus rhythm with numerous PACs. This could be a precursor to an episode of atrial fibrillation. He is currently on Cardizem 180 mg daily. And his heart rate was between 100-120. I' ll increase the dose of Cardizem to 240 mg a day. I believe his tachycardia is due to his underlying sepsis and once there is improvement in his overall clinical situation, his tachycardia will improve as well. There is also a likelihood that he may go into an episode of atrial fibrillation. The patient also previously saw Dr. Hernandez who has since left [place]. He is interested in following us in the office for further outpatient cardiology follow-up. Thank you for your consultation. Please call me if you have any questions. Tisha Zepeda MD, FACP, FACC, FSCAI, FHRS, CCDS Interventional Cardiology Cardiac Electrophysiology Vascular Medicine and Endovascular Interventions Clinical Quality Measures DVT/VTE Risk/Contraindication: Risk Factor Score Per Nursin RFS Level Per Nursing on Admit: 4+=Very High Yoselin ZEPEDA MD Aug 03, 2017 12:34 pm
[2017-08-03] MEDS ORDERED: DILTIAZEM 60 MG (CARDIZEM) TAB PO ONE (14:00)
[2017-08-03] MEDS: LACTOBACILLUS Acidoph/Bulgar (LACTINEX/FLORANEX) TAB PO SCH ×2 (14:05→18:10)
[2017-08-03] MEDS: guaiFENesin/CODEINE (ROBITUSSIN AC) 10ML UDC PO PRN (15:48)
[2017-08-03 17:00] LABS: CALCIUM IONIZED 1.3 mmol/L (1.16-1.32); CORRECTED IONIZED CALCIUM 1.27 mmol/L (1.16-1.32)
[2017-08-04] MEDS: SIMETHICONE 80 MG (MYLICON) CHEW PO PRN ×2 (02:35→17:40)
[2017-08-04 03:43] VITALS: BP 102/68
[2017-08-04 05:28] LABS: BASOPHILS % (AUTO) 0 % (0-10); EOSINOPHILS % (AUTO) 0 % (0-10); LYMPHOCYTES # (AUTO) 0.3 X 10^3 (1.0-4.0); LYMPHOCYTES % (AUTO) 11 % (12-44); MEAN CORPUSCULAR HEMOGLOBIN 31 PG (25-34); MEAN CORPUSCULAR HGB CONC 35 G/DL (32-36); MEAN CORPUSCULAR VOLUME 90 FL (80-99); MEAN PLATELET VOLUME 12.1 FL (7.4-10.4); MONOCYTES # (AUTO) 0.5 X 10^3 (0.0-1.0); MONOCYTES % (AUTO) 16 % (0-12); NEUTROPHILS # (AUTO) 2.1 X 10^3 (1.8-7.8); NEUTROPHILS % (AUTO) 72 % (42-75); PLATELET COUNT 56 10^3/uL (130-400); RED BLOOD COUNT 2.79 10^6/uL (4.35-5.85); RED CELL DISTRIBUTION WIDTH 15.4 % (10.0-14.5); WHITE BLOOD COUNT 2.9 10^3/uL (4.3-11.0)
[2017-08-04 06:22] LABS: ANION GAP 5 MMOL/L (5-14); BLOOD UREA NITROGEN 13 MG/DL (7-18); BUN/CREATININE RATIO 21; CALCIUM 8.8 MG/DL (8.5-10.1); CARBON DIOXIDE 17 MMOL/L (21-32); CHLORIDE 106 MMOL/L (98-107); CREATININE SERUM 0.63 MG/DL (0.60-1.30); GFR ESTIMATED > 60; GLUCOSE 84 MG/DL (70-105); SODIUM 128 MMOL/L (135-145)
[2017-08-04 07:36] LABS: CALCIUM PH 7.36
[2017-08-04 08:00] VITALS: BP 119/69
[2017-08-04] MEDS: LACTOBACILLUS Acidoph/Bulgar (LACTINEX/FLORANEX) TAB PO SCH ×3 (08:10→16:06)
[2017-08-04] MEDS: CATHETER FLUSH 10 ML SYR IV SCH ×4 (08:10→21:16)
[2017-08-04] MEDS: DILTIAZEM 240 MG (CARDIZEM CD) CAP PO SCH (09:49)
[2017-08-04] MEDS: DOCUSATE SODIUM 100 MG (COLACE) CAP PO SCH ×2 (09:49→21:16)
[2017-08-04] MEDS: PANTOPRAZOLE 40 MG (PROTONIX) TAB PO SCH (09:49)
[2017-08-04] MEDS: FLUTICASONE NASAL SPRAY (FLONASE) 16 GM BTL NS SCH ×2 (09:49→21:16)
[2017-08-04] MEDS: FINASTERIDE (PROSCAR) 5 MG TAB PO SCH (09:49)
[2017-08-04] MEDS: ASPIRIN E.C. 325 MG (ECOTRIN) TABLET PO SCH (09:50)
[2017-08-04] MEDS: POLYETHYLENE GLYCOL 17 GM (MIRALAX) PACK PO SCH (09:50)
[2017-08-04] MEDS: ACYCLOVIR 400 MG TABLET (ZOVIRAX) PO SCH ×2 (09:50→21:16)
[2017-08-04] MEDS: ALLOPURINOL 300 MG (ZYLOPRIM) TAB PO SCH (09:50)
[2017-08-04] MEDS: VANCOMYCIN 1250 MG/NS 250 ML IVPB IV SCH ×4 (10:05→21:16)
--- NOTE | 2017-08-04 10:36 | Progress Note-Standard ---
Standard Progress Note Progress Notes/Assess & Plan Date Seen by Provider: Aug 04, 2017 Time Seen by Provider: 10:31 Progress/Assessment & Plan 67-year-old male with recent diagnosis of IgG kappa multiple myeloma, currently on chemotherapy with VRD regimen D#13, admitted with cough and increasing weakness. Noted to have sepsis syndrome with hypotension, elevated lactic acid level but no definite source of infection or fever. Also with significant hyponatremia and on free water restriction as well as normal saline IV. Cultures negative so far. Patient is on broad-spectrum antibiotics with cefepime and vancomycin. Continuing on prophylactic acyclovir. Patient is feeling much better today. Blood pressure in the normal range. Cough improved significantly. Cardiology consult noted and agree with no anticoagulation for stroke prophylaxis. Exam stable with no adverse changes. Labs noted with WBC 2.8 hemoglobin 8.8 and platelet count of 56,000. Sodium has improved to 128 with rest of the chemistry panel normal. Advised to continue Revlimid today. Recheck lab work tomorrow and if lower, will recommend to hold Revlimid. Continue incentive spirometry and increase activity as tolerated. Dr. Shah will be back tomorrow. VALERIO SUNSHINE Aug 04, 2017 10:36
[2017-08-04 11:49] VITALS: BP 115/67
[2017-08-04] MEDS: CEFEPIME 2 GM/NS 50 ML IVPB IV SCH ×4 (12:33→23:05)
--- NOTE | 2017-08-04 12:40 | Cardiology Progress Note ---
Cardiology SOAP Progress Note Subjective: no cardiac complaints Objective: I&O/Vital Signs Vital Sign - Last 12Hours 08/04/17 08/04/17 08/04/17 08/04/17 01:00 03:43 08:00 11:49 Temp 98.2 97.5 96.8 Pulse 89 72 83 75 Resp 18 20 20 B/P (MAP) 102/68 119/69 115/67 Pulse Ox 96 97 96 O2 Delivery Room Air Room Air Room Air Weight (Pounds): 209 Weight (Ounces): 0.0 Weight (Calculated Kilograms): 94.433264 Constitutional: No appears stated age, No AAO x 3, No apparent distress, No PERRL, No well-developed, No well-nourished, No other Respiratory: No accessory muscle use, No respiratory distress, No chest tender , No chest expansion is symmetric, No chest is bilaterally symmetric, No lungs clear to percussion, No lungs clear to auscultation, No crackles, No rhonchi, No rales, No stridor, No wheezing, No pleural rub, No other Cardiovascular: regular rate-rhythm, tachycardia, S1 and S2, other (occasional irregular pulse) Gastrointestional: No tender, No soft, No round, No distended, No pulsatile mass, No organomegaly, No guarding, No rebound, No tenderness, No hernia, No mass, No audible bowel sounds, No abnormal bowel sounds, No abdominal bruits, No spleenomegaly, No other Extremities: No normal range of motion, No non-tender, No normal inspection, No pedal edema, No calf tenderness, No normal capillary refill, No pelvis stable , No calf tenderness, No inflammation, No pedal edema, No slow capillary refill , No swelling, No other, No abrasion, No clubbing, No cyanosis, No ecchymosis, No laceration, No no lower extremity edema bilateral, No significant edema, No tenderness, No wound Neurologic/Psychiatric: No tug boat engineer II-XII nml as tested, No no motor/sensory deficits, No alert, No normal mood/affect, No oriented x 3, No abnormal cerebellar tests, No abnormal tug boat engineer II-XII, No abnormal gait, No aphasia, No EOM palsy, No facial droop, No motor weakness, No sensory deficit, No depressed affect, No disoriented x 3, No other, No grossly intact, No power is 5/5 both on sides Skin: normal color, warm/dry Results/Procedures: Labs Laboratory Tests 08/04/17 05:08: White Blood Count 2.9L, Red Blood Count 2.79L, Hemoglobin 8.7L, Hematocrit 25L, Mean Corpuscular Volume 90, Mean Corpuscular Hemoglobin 31, Mean Corpuscular Hemoglobin Concent 35, Red Cell Distribution Width 15.4H, Platelet Count 56L, Mean Platelet Volume 12.1H, Neutrophils (%) (Auto) 72, Lymphocytes (%) (Auto) 11L, Monocytes (%) (Auto) 16H, Eosinophils (%) (Auto) 0, Basophils (%) (Auto) 0 , Neutrophils # (Auto) 2.1, Lymphocytes # (Auto) 0.3L, Monocytes # (Auto) 0.5, Eosinophils # (Auto) 0.0, Basophils # (Auto) 0.0, Sodium Level 128L, Potassium Level 4.0, Chloride Level 106, Carbon Dioxide Level 17L, Anion Gap 5, Blood Urea Nitrogen 13, Creatinine 0.63, Estimat Glomerular Filtration Rate > 60, BUN/ Creatinine Ratio 21, Glucose Level 84, Calcium Level 8.8 Microbiology 08/01/17 Blood Culture - Preliminary, Resulted No growth 08/01/17 Urine Culture - Final, Complete NO GROWTH A/P: Assessment/Dx: Sepsis, multiple myeloma, hypertension. Paroxysmal atrial fibrillation, PACs Plan: Deferred treatment of multiple myeloma, sepsis or hypotension to the primary team. It is likely due to sepsis and will require broad spectrum antibiotics and generous IV fluids. The patient has history of paroxysmal atrial fibrillation. His CHADSVASC score is 1 for age 67. I discussed stroke prevention and risk of bleeding with the patient and family. We will continue full aspirin and Cardizem for rate control. However currently the patient is sinus rhythm with numerous PACs. Cardizem was increased to 240 mg a day. Better rate controlled. I believe his tachycardia is due to his underlying sepsis and once there is improvement in his overall clinical situation, his tachycardia will improve as well. The patient also previously saw Dr. Hernandez who has since left [place]. He is interested in following us in the office for further outpatient cardiology follow-up. Thank you for your consultation. Please call me if you have any questions. Tisha Zepeda MD, FACP, FACC, FSCAI, FHRS, CCDS Interventional Cardiology Cardiac Electrophysiology Vascular Medicine and Endovascular Interventions Yoselin ZEPEDA MD Aug 04, 2017 12:40 pm
--- NOTE | 2017-08-04 13:02 | Progress Note-Hospitalist ---
Standard Progress Note Progress Notes/Assess & Plan Date Seen 08/04/17 Time Seen by Provider: 12:55 Diagnosis Assessment: Sepsis of uncertain source but could be related to medications given yesterday and cancer Center for multiple myeloma but atelectasis on chest x-ray and recently completed Levaquin antibiotic for presumed bronchitis Severe hyponatremia of 116 likely medication related placed on fluid restriction and gentle IV fluids of normal saline and improved to 119 today History of atrial fibrillation maintain on Cardizem and aspirin History of asthma and former smoking Multiple myeloma diagnosed May 2017 induction initiated at [facility] BPH history Hypertension as an outpatient generally before this episode held lisinopril per cancer doctor recommendation starting yesterday 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 He was diagnosed in May of this year with multiple myeloma and has been placed on induction therapy. He presented with a sodium of 116 which is now improved to 128. The UA showed 5-10 WBCs but has not grown any bacteria. Chest x-ray suggested interstitial lung disease but no clear pneumonia. Because of his fever and diminished immune states he was started on cefepime and vancomycin and has improved rather remarkably. Today he had a hamburger for lunch and claims it as very satisfactory. Physical exam: He is sitting on the bedside chair. Color is good. Lungs are clear to auscultation. CV is regular. Abdomen is soft without tenderness. Impression: Apparent sepsis in an immunosuppressed patient. 2.significant hyponatremia improving. 3.recent diagnosis of multiple myeloma. Plan: Continue present antibiotics and medications. Labs Laboratory Tests 08/03/17 03:50 08/04/17 05:08 ROSA JONES MD Aug 04, 2017 13:02
--- NOTE | 2017-08-04 14:35 | CONSULTATION REPORT ---
DATE OF SERVICE: 08/02/2017 ICU bed 7. PHYSICIAN REQUESTING CONSULTATION: Ana Jackson DO PRIMARY PHYSICIAN: Jonnathan Hale MD. A 67-year-old male with recent diagnosis of multiple myeloma and started on chemotherapy with VRD regimen (Velcade, Revlimid and Dexamethasone) approximately 12 days ago. The patient has completed the Velcade day 11 and is continuing on daily Revlimid until day 14 and weekly Dexamethasone. He started feeling sick since yesterday morning with cough productive of scanty sputum. He denied any fevers or chills and was brought to the Emergency Room by last evening. He was found to be hypotensive and had significant hyponatremia. His lactic acid level was also elevated. He was admitted to ICU with possible sepsis syndrome and started on IV fluids. He was also started on pressors, which has been weaned off since then. He is feeling better today. No chest pain, palpitations, orthopnea or PND. No diarrhea, constipation, hematochezia or melena. No tingling, numbness or weakness of the extremities. PAST MEDICAL HISTORY: Significant for asthma in the past. History of hypertension for which he has been on treatment for several years. History of atrial fibrillation diagnosed in 2015. History of acid peptic symptoms and hiatal hernia. History of BPH requiring TUR and RFA. History of compression fracture of several vertebra diagnosed at the time of multiple myeloma. History of hypercalcemia at the time of diagnosis of multiple myeloma. PRIOR SURGERIES: Include transurethral resection of prostate and radiofrequency ablation. SOCIAL HISTORY: The patient is and lives in [place], [place]. His children live close by. 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 He has history of tobacco use in the past, but quit some time ago. No significant alcohol or other recreational drug use. FAMILY HISTORY: Significant for Alzheimer's disease in his mother and BPH in his father. No history of malignancies in the family that he knows of. PHYSICAL EXAMINATION: GENERAL: Today showed elderly male, well-developed and nourished, awake and oriented and does not appear in any acute distress. VITAL SIGNS: His temperature was 98.5, pulse rate of 89, respirations 12, blood pressure 113/65 with a pulse oximetry at 95%. HEENT: Normocephalic, extraocular muscles intact, conjunctiva slightly pale, oral mucosa slightly dry. NECK: Supple with no JVD. No cervical, supraclavicular or axillary lymphadenopathy palpable. CHEST: Symmetrical. LUNGS: Clear to auscultation without wheezes or rales. CARDIOVASCULAR: Regular with frequent missed beats. No murmurs or gallops heard. ABDOMEN: Soft, nontender with no hepatosplenomegaly or other masses palpable. EXTREMITIES: Showed no edema. NEUROLOGIC: Exam was grossly intact without focal motor deficits. CBC done today morning showed WBC 5.1, hemoglobin 9.1 and platelet count of 112,000. Neutrophil count was 4.3 and lymphocyte count 0.2. Chemistry panel done today showed sodium level of 119 and CO2 level of 18. BUN was 28 and creatinine 1.06 with GFR more than 60 mL per minute. Measured calcium was 8.5. The lowest sodium level was noted last night at 8:20 p.m. which was 116. Lactic acid level at the time of the Emergency Room visit was elevated at 2.64, which increased to 3.31 within 2 hours and was 1.19 this morning. Chest x-ray done at the Emergency Room showed enlarged cardiac silhouette without evidence of failure. Chronic interstitial changes. No focal lung consolidation or effusion. Repeat chest x-ray done today morning showed bibasilar atelectasis with no evidence of lung infiltrates. Stable cardiomegaly. IMPRESSION/RECOMMENDATIONS: 1. Multiple myeloma, IgG kappa subtype diagnosed recently. 2. Currently on chemotherapy with VRD regimen started 12 days ago. The patient is planning to complete 4 cycles of chemotherapy and potential autologous stem cell transplantation. He has been evaluated at [facility] for this. 3. Probable sepsis syndrome with cough, hypotension and elevated lactic acid level. Currently improved. He has been weaned off the pressors and is doing well and feeling well. Followup pending cultures and continue broad-spectrum antibiotics. 4. Continue Revlimid 25 mg daily until day 14 as scheduled. The patient can take his home medication. 5. Significant hyponatremia, probably related to respiratory symptoms and pleurisy. Agree with free water restriction and continue normal saline. Monitor this serially. 6. Gradually increase activity level. 7. I will follow the patient with you. Job ID: [id number] DocumentID: [id number] Dictated Date: 08/02/2017 18:17:43 Health Information Specialist Date: 08/04/2017 12:47:45 Dictated By: VALERIO SUNSHINE MD MTDD
[2017-08-04 15:40] VITALS: BP 100/63
[2017-08-04] MEDS: HYDROcodone/APAP 5 MG/325 MG (LORTAB) TAB PO PRN (16:06)
[2017-08-04] MEDS: guaiFENesin/CODEINE (ROBITUSSIN AC) 10ML UDC PO PRN (17:40)
[2017-08-04 20:10] VITALS: BP 139/60
[2017-08-05 00:10] VITALS: BP 136/78
[2017-08-05] MEDS: LACTOBACILLUS Acidoph/Bulgar (LACTINEX/FLORANEX) TAB PO SCH ×3 (05:10→16:28)
[2017-08-05] MEDS: CATHETER FLUSH 10 ML SYR IV SCH ×3 (05:11→23:25)
[2017-08-05 06:50] LABS: BASOPHILS % (AUTO) 0 % (0-10); EOSINOPHILS # (AUTO) 0.1 10^3/uL (0.0-0.3); EOSINOPHILS % (AUTO) 2 % (0-10); LYMPHOCYTES # (AUTO) 0.4 X 10^3 (1.0-4.0); LYMPHOCYTES % (AUTO) 15 % (12-44); MEAN CORPUSCULAR HEMOGLOBIN 32 PG (25-34); MEAN CORPUSCULAR HGB CONC 35 G/DL (32-36); MEAN CORPUSCULAR VOLUME 90 FL (80-99); MEAN PLATELET VOLUME 13.2 FL (7.4-10.4); MONOCYTES # (AUTO) 0.4 X 10^3 (0.0-1.0); MONOCYTES % (AUTO) 12 % (0-12); NEUTROPHILS # (AUTO) 2.1 X 10^3 (1.8-7.8); NEUTROPHILS % (AUTO) 71 % (42-75); PLATELET COUNT 50 10^3/uL (130-400); RED BLOOD COUNT 2.86 10^6/uL (4.35-5.85); RED CELL DISTRIBUTION WIDTH 15.5 % (10.0-14.5)
[2017-08-05 07:13] LABS: ALANINE AMINOTRANSFERASE 14 U/L (0-55); ALBUMIN 3.1 GM/DL (3.2-4.5); ANION GAP 6 MMOL/L (5-14); ASPARTATE AMINO TRANSFERASE 10 U/L (5-34); BILIRUBIN,TOTAL 0.9 MG/DL (0.1-1.0); BLOOD UREA NITROGEN 11 MG/DL (7-18); BUN/CREATININE RATIO 17; CALCIUM 8.9 MG/DL (8.5-10.1); CARBON DIOXIDE 20 MMOL/L (21-32); CHLORIDE 105 MMOL/L (98-107); CREATININE SERUM 0.64 MG/DL (0.60-1.30); GFR ESTIMATED > 60; GLUCOSE 83 MG/DL (70-105); MAGNESIUM 2.1 MG/DL (1.8-2.4); POTASSIUM 3.8 MMOL/L (3.6-5.0); SODIUM 131 MMOL/L (135-145); TOTAL PROTEIN 5.3 GM/DL (6.4-8.2)
[2017-08-05 07:40] VITALS: BP 115/63
[2017-08-05] MEDS: FINASTERIDE (PROSCAR) 5 MG TAB PO SCH (08:47)
[2017-08-05] MEDS: LENALIDOMIDE 25 MG PO SCH (08:47)
[2017-08-05] MEDS: FLUTICASONE NASAL SPRAY (FLONASE) 16 GM BTL NS SCH ×2 (08:48→21:03)
[2017-08-05] MEDS: POLYETHYLENE GLYCOL 17 GM (MIRALAX) PACK PO SCH (08:48)
[2017-08-05] MEDS: ALLOPURINOL 300 MG (ZYLOPRIM) TAB PO SCH (08:48)
[2017-08-05] MEDS: DILTIAZEM 240 MG (CARDIZEM CD) CAP PO SCH (08:49)
[2017-08-05] MEDS: DOCUSATE SODIUM 100 MG (COLACE) CAP PO SCH ×2 (08:49→20:59)
[2017-08-05] MEDS: ACYCLOVIR 400 MG TABLET (ZOVIRAX) PO SCH ×2 (08:49→20:59)
[2017-08-05] MEDS: ASPIRIN E.C. 325 MG (ECOTRIN) TABLET PO SCH (08:49)
[2017-08-05] MEDS: VANCOMYCIN 1250 MG/NS 250 ML IVPB IV SCH ×2 (08:49)
[2017-08-05] MEDS: PANTOPRAZOLE 40 MG (PROTONIX) TAB PO SCH (08:50)
[2017-08-05] MEDS ORDERED: TRIM/SULFAMETH 160/800 (SEPTRA DS) TAB PO SCH ×2 (09:00→21:00)
[2017-08-05] MEDS: CEFEPIME 2 GM/NS 50 ML IVPB IV SCH ×4 (10:56→23:25)
[2017-08-05 12:00] VITALS: BP 118/64
--- NOTE | 2017-08-05 13:08 | Progress Note-Hospitalist ---
Standard Progress Note Progress Notes/Assess & Plan Date Seen 08/05/17 Time Seen by Provider: 13:05 Diagnosis Assessment: Sepsis of uncertain source but could be related to medications given yesterday and cancer Center for multiple myeloma but atelectasis on chest x-ray and recently completed Levaquin antibiotic for presumed bronchitis Severe hyponatremia of 116 likely medication related placed on fluid restriction and gentle IV fluids of normal saline and improved to 119 today History of atrial fibrillation maintain on Cardizem and aspirin History of asthma and former smoking Multiple myeloma diagnosed May 2017 induction initiated at [facility] BPH history Hypertension as an outpatient generally before this episode held lisinopril per cancer doctor recommendation starting yesterday 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 Assess & Plan/Chief Complaint The patient is afebrile. The vital signs are stable. He reports he continues to feel stronger. There is no growth on the previously obtained cultures. After discussing with clinical pharmacology we will begin a pullback on empiric antibiotics. His appetite is good. His white blood count has climbed to 3000. Platelets remain steady at 50,000. There is been no evidence of bleeding. He denies shortness of breath and remains on room air. Physical exam: He is alert and oriented. Lungs are clear to auscultation. CV is regular without murmur. Abdomen is soft. Extremities show no pedal edema and no (areas of skin. Impression: Presenting symptoms strongly suggestive of sepsis in an immunosuppressed patient. 2.recent diagnosis of multiple myeloma with ongoing induction chemotherapy. Plan: Discontinue vancomycin. Labs Laboratory Tests 08/04/17 05:08 08/05/17 06:40 ROSA JONES MD Aug 05, 2017 13:08
[2017-08-05] MEDS ORDERED: DILT180C PO (15:22)
[2017-08-05] MEDS ORDERED: ASPI325T32 PO ×2 (15:23→15:32)
[2017-08-05] MEDS ORDERED: SULF1TAB35 PO (15:32)
[2017-08-05] MEDS ORDERED: LISI-552 PO (15:32)
[2017-08-05] MEDS ORDERED: ERGO50006 PO (15:36)
[2017-08-05] MEDS: HYDROcodone/APAP 5 MG/325 MG (LORTAB) TAB PO PRN (17:31)
--- NOTE | 2017-08-05 17:41 | Progress Note-Standard ---
Standard Progress Note Progress Notes/Assess & Plan Date Seen by Provider: Aug 05, 2017 Time Seen by Provider: 17:36 Progress/Assessment & Plan 67-year-old male with recent diagnosis of IgG kappa multiple myeloma, currently on chemotherapy with VRD regimen D#14, admitted with cough and increasing weakness. Noted to have sepsis syndrome with hypotension, elevated lactic acid level but no definite source of infection or fever. Also with significant hyponatremia and on free water restriction as well as normal saline IV. Cultures negative so far. Patient is on broad-spectrum antibiotics with cefepime and vancomycin D#4. Vancomycin has been d/cd today. Continuing on prophylactic acyclovir. Patient is feeling much better today. Blood pressure in the normal range. Cough improved significantly. Cardiology consult noted and agree with no anticoagulation for stroke prophylaxis. Exam stable with no adverse changes. Labs noted with WBC 3.0 with ANC 2.1, hemoglobin 9.0 and platelet count of 50,000. Sodium has improved to 131 with rest of the chemistry panel normal. Completed Revlimid today. Patient is due for weekly dexamethasone 40 mg po tomorrow and advised him to take his home medication as ordered. Recheck lab work tomorrow. Continue incentive spirometry and increase activity as tolerated. VALERIO SUNSHINE Aug 05, 2017 17:41
[2017-08-05 17:51] VITALS: BP 112/59
[2017-08-05] MEDS: guaiFENesin/CODEINE (ROBITUSSIN AC) 10ML UDC PO PRN (19:26)
[2017-08-05 20:00] VITALS: BP 118/71
[2017-08-06] VITALS: BP 119/70
[2017-08-06 04:00] VITALS: BP 137/63
[2017-08-06] MEDS: LACTOBACILLUS Acidoph/Bulgar (LACTINEX/FLORANEX) TAB PO SCH ×2 (06:11→10:59)
[2017-08-06] MEDS: CATHETER FLUSH 10 ML SYR IV SCH (06:11)
[2017-08-06 07:03] LABS: BASOPHILS % (AUTO) 0 % (0-10); EOSINOPHILS # (AUTO) 0.1 10^3/uL (0.0-0.3); EOSINOPHILS % (AUTO) 3 % (0-10); LYMPHOCYTES # (AUTO) 0.5 X 10^3 (1.0-4.0); LYMPHOCYTES % (AUTO) 13 % (12-44); MEAN CORPUSCULAR HEMOGLOBIN 32 PG (25-34); MEAN CORPUSCULAR HGB CONC 35 G/DL (32-36); MEAN CORPUSCULAR VOLUME 91 FL (80-99); MEAN PLATELET VOLUME 12.5 FL (7.4-10.4); MONOCYTES # (AUTO) 0.4 X 10^3 (0.0-1.0); MONOCYTES % (AUTO) 13 % (0-12); NEUTROPHILS # (AUTO) 2.4 X 10^3 (1.8-7.8); NEUTROPHILS % (AUTO) 71 % (42-75); PLATELET COUNT 41 10^3/uL (130-400); RED BLOOD COUNT 2.75 10^6/uL (4.35-5.85); RED CELL DISTRIBUTION WIDTH 15.7 % (10.0-14.5); WHITE BLOOD COUNT 3.4 10^3/uL (4.3-11.0)
[2017-08-06 07:23] LABS: ANION GAP 6 MMOL/L (5-14); BLOOD UREA NITROGEN 10 MG/DL (7-18); BUN/CREATININE RATIO 17; CALCIUM 8.8 MG/DL (8.5-10.1); CARBON DIOXIDE 21 MMOL/L (21-32); CHLORIDE 105 MMOL/L (98-107); GFR ESTIMATED > 60; GLUCOSE 85 MG/DL (70-105); POTASSIUM 3.9 MMOL/L (3.6-5.0); SODIUM 132 MMOL/L (135-145)
[2017-08-06 08:00] VITALS: BP 123/75
[2017-08-06] MEDS: POLYETHYLENE GLYCOL 17 GM (MIRALAX) PACK PO SCH (08:32)
[2017-08-06] MEDS: DILTIAZEM 240 MG (CARDIZEM CD) CAP PO SCH (08:33)
[2017-08-06] MEDS: PANTOPRAZOLE 40 MG (PROTONIX) TAB PO SCH (08:33)
[2017-08-06] MEDS: FINASTERIDE (PROSCAR) 5 MG TAB PO SCH (08:33)
[2017-08-06] MEDS: DOCUSATE SODIUM 100 MG (COLACE) CAP PO SCH (08:33)
[2017-08-06] MEDS: ASPIRIN E.C. 325 MG (ECOTRIN) TABLET PO SCH (08:33)
[2017-08-06] MEDS: ACYCLOVIR 400 MG TABLET (ZOVIRAX) PO SCH (08:33)
[2017-08-06] MEDS: ALLOPURINOL 300 MG (ZYLOPRIM) TAB PO SCH (08:33)
[2017-08-06] MEDS: HYDROcodone/APAP 5 MG/325 MG (LORTAB) TAB PO PRN (08:36)
[2017-08-06] MEDS: LENALIDOMIDE 25 MG PO SCH (08:37)
[2017-08-06] MEDS: FLUTICASONE NASAL SPRAY (FLONASE) 16 GM BTL NS SCH (09:12)
[2017-08-06] MEDS ORDERED: DILT240C63 PO (10:13)
--- NOTE | 2017-08-06 10:16 | Discharge Summary-Hospitalist ---
Diagnosis/Chief Complaint Date of Admission Aug 01, 2017 at 22:10 Date of Discharge Discharge Date: Aug 06, 2017 Admission Diagnosis Assessment: Sepsis of uncertain source but could be related to medications given yesterday and cancer Center for multiple myeloma but atelectasis on chest x-ray and recently completed Levaquin antibiotic for presumed bronchitis Severe hyponatremia of 116 likely medication related placed on fluid restriction and gentle IV fluids of normal saline and improved to 119 today History of atrial fibrillation maintain on Cardizem and aspirin History of asthma and former smoking Multiple myeloma diagnosed May 2017 induction initiated at [facility] history Hypertension as an outpatient generally before this episode held lisinopril per cancer doctor recommendation starting yesterday 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 Discharge Diagnosis Assessment: Sepsis of uncertain source but could be related to medications given Friday at Cancer Center for multiple myeloma but atelectasis on chest x-ray and recently completed Levaquin antibiotic for presumed bronchitis is likely a factor Severe hyponatremia of 116 likely medication related placed on fluid restriction and gentle IV fluids of normal saline and improved to 124 today History of atrial fibrillation maintain on Cardizem and aspirin consulting Dr Zepeda History of asthma and former smoking using Nebs and IS Multiple myeloma diagnosed May 2017 induction initiated at [facility] history Hypertension as an outpatient generally before this episode held lisinopril per cancer doctor recommendation starting Friday 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 Neutropenia due to chemotherapy Discharge Summary Discharge Physical Examination Allergies: Coded Allergies: Penicillins (Unverified Allergy, Unknown, 07/06/15) Vitals & I&Os Vital Signs Date Time Temp Pulse Resp B/P (MAP) Pulse Ox O2 Delivery O2 Flow Rate FiO2 08/06/17 08:00 96.6 87 20 123/75 97 Room Air Hospital Course Note from 08/06/17: No fever, vital signs stable, pleasant, family at bedside Regular rate rhythm, clear to auscultation bilaterally crackles resolved No edema Hospital course: Patient a lengthy hospital course first beginning in the ICU due to severe hypotension requiring pressor therapy and IV fluid resuscitation and empiric antibiotics for sepsis as the cause for the hypotension. He had just received multiple myeloma chemotherapy in the cancer center the day before presentation to the ER and had low blood pressure at that point asymptomatic. Lisinopril was held from that time on. Overall he responded to aggressive IV fluid resuscitation and pressor therapy chest x-ray was monitored and it appeared there was residual bronchitis atelectasis versus early pneumonia on chest x-ray after completing Levaquin antibiotic that week before. Dr. Wakefield was consulted during the weekend when Dr. Shah was off and laboratory was monitored closely by hematology oncology service. He did not require any transfusion. Overall he improved was able to ambulate with a walker did not require oxygen and had completed 6 days of broad-spectrum antibiotics so he was deemed stable for discharge in improved condition with close follow-up with Dr. Connelly to evaluate if lisinopril should be increased and will also be monitored by cardiology for a to fibrillation since Cardizem was increased from 180 MG to 240 MG and that new medication was sent into [facility] pharmacy in [facility]. He was deemed not an anticoagulation candidate at this time due to the chemotherapy-induced anemia and thrombocytopenia. Labs (last 24 hrs) Laboratory Tests 08/06/17 06:50: White Blood Count 3.4L, Red Blood Count 2.75L, Hemoglobin 8.7L, Hematocrit 25L, Mean Corpuscular Volume 91, Mean Corpuscular Hemoglobin 32, Mean Corpuscular Hemoglobin Concent 35, Red Cell Distribution Width 15.7H, Platelet Count 41L, Mean Platelet Volume 12.5H, Neutrophils (%) (Auto) 71, Lymphocytes (%) (Auto) 13 , Monocytes (%) (Auto) 13H, Eosinophils (%) (Auto) 3, Basophils (%) (Auto) 0, Neutrophils # (Auto) 2.4, Lymphocytes # (Auto) 0.5L, Monocytes # (Auto) 0.4, Eosinophils # (Auto) 0.1, Basophils # (Auto) 0.0, Sodium Level 132L, Potassium Level 3.9, Chloride Level 105, Carbon Dioxide Level 21, Anion Gap 6, Blood Urea Nitrogen 10, Creatinine 0.60, Estimat Glomerular Filtration Rate > 60, BUN/ Creatinine Ratio 17, Glucose Level 85, Calcium Level 8.8 Microbiology 08/01/17 Blood Culture - Preliminary, Resulted No growth 08/01/17 Urine Culture - Final, Complete NO GROWTH Pending Labs Laboratory Tests 08/06/17 06:50: White Blood Count 3.4, Red Blood Count 2.75, Hemoglobin 8.7, Hematocrit 25, Mean Corpuscular Volume 91, Mean Corpuscular Hemoglobin 32, Mean Corpuscular Hemoglobin Concent 35, Red Cell Distribution Width 15.7, Platelet Count 41, Mean Platelet Volume 12.5, Neutrophils (%) (Auto) 71, Lymphocytes (%) (Auto) 13 , Monocytes (%) (Auto) 13, Eosinophils (%) (Auto) 3, Basophils (%) (Auto) 0, Neutrophils # (Auto) 2.4, Lymphocytes # (Auto) 0.5, Monocytes # (Auto) 0.4, Eosinophils # (Auto) 0.1, Basophils # (Auto) 0.0, Sodium Level 132, Potassium Level 3.9, Chloride Level 105, Carbon Dioxide Level 21, Anion Gap 6, Blood Urea Nitrogen 10, Creatinine 0.60, Estimat Glomerular Filtration Rate > 60, BUN/ Creatinine Ratio 17, Glucose Level 85, Calcium Level 8.8 Discharge Home Medications: Active Scripts Active Diltiazem 24Hr Cd (Diltiazem HCl) 240 Mg Cap.er.24h 240 Mg PO DAILY Reported Vitamin D2 (Ergocalciferol (Vitamin D2)) 50,000 Unit Capsule 50,000 Unit PO FR Lisinopril 20 Mg Tablet 20 Mg PO DAILY Aspirin EC (Aspirin) 325 Mg Tablet.dr 325 Mg PO DAILY Bactrim Ds Tablet (Sulfamethoxazole/Trimethoprim) 1 Each Tablet 1 Tab PO UD TAKES 1 TAB TWICE DAILY ON TUESDAYS AND FRIDAYS Diltiazem 24Hr ER (Diltiazem HCl) 180 Mg Cap.er.24h 180 Mg PO DAILY Miralax (Polyethylene Glycol 3350) 17 Gm Powd.pack 8.5 Gm PO DAILY Proair Hfa (Albuterol Sulfate) 1 Puff Puff 2 Puff IH Q4H PRN 1 PUFF = 90 MCG Flonase Allergy Relief (Fluticasone Propionate) 9.9 Ml [place].susp 1 [place]uka NS BID Allopurinol 300 Mg Tablet 300 Mg PO DAILY Virtussin AC Liquid (Guaifenesin/Codeine Phosphate) 118 Ml Liquid 2 Tsp PO Q12H PRN Colace (Docusate Sodium) 100 Mg Capsule 100 Mg PO BID Dexamethasone 4 Mg Tablet 40 Mg PO WE TAKES 10 (4MG) TABLETS Pantoprazole Sodium 40 Mg Tablet.dr 40 Mg PO DAILY Ondansetron HCl 8 Mg Tablet 8 Mg PO Q8H PRN Acyclovir 800 Mg Tablet 800 Mg PO BID Hydrocodon -Acetaminophen 5-325 (Hydrocodone/Acetaminophen) 1 Each Tablet 1 Tab PO Q8H PRN Revlimid (Lenalidomide) 25 Mg Capsule 25 Mg PO UD 14 Days TAKES 25MG DAILY X 14 DAYS THEN OFF FOR 7 DAYS THEN REPEAT TOOK LAST DOSE OF THIS 14 DAY THEARPY 08-05-17 Avodart (Dutasteride) 0.5 Mg Cap 0.5 Mg PO DAILY Instructions to patient/family Please see electonic discharge instructions given to patient. Clinical Quality Measures DVT/VTE Risk/Contraindication: Risk Factor Score Per Nursin RFS Level Per Nursing on Admit: 4+=Very High AMBREEN MESSINA DO Aug 06, 2017 10:16
[2017-08-06] MEDS: CEFEPIME 2 GM/NS 50 ML IVPB IV SCH ×2 (10:59)
[2017-08-06 12:45] VITALS: BP 123/75
== END 2017-08-06 13:05 | disposition home or self-care (01) | DRG 872 ==
LOC: EDUNIT# 19:19 → ER 19:21 → ICU 22:10 → 4TH 08-03 14:15
PROVIDERS: ADMIT Internal Medicine; ATTEND Internal Medicine
DX: A41.9 Sepsis, unspecified organism (principal); D70.1 Agranulocytosis secondary to cancer chemotherapy; D64.81 Anemia due to antineoplastic chemotherapy; D69.59 Other secondary thrombocytopenia; T45.1X5A Adverse effect of antineoplastic and immunosuppressive drugs, initial encounter; J98.11 Atelectasis; C90.00 Multiple myeloma not having achieved remission; E87.1 Hypo-osmolality and hyponatremia; I48.0 Paroxysmal atrial fibrillation; I49.1 Atrial premature depolarization; I10 Essential (primary) hypertension; J45.909 Unspecified asthma, uncomplicated; K21.9 Gastro-esophageal reflux disease without esophagitis; R09.1 Pleurisy; K44.9 Diaphragmatic hernia without obstruction or gangrene; Z87.09 Personal history of other diseases of the respiratory system; Z87.891 Personal history of nicotine dependence; Z79.899 Other long term (current) drug therapy
CPT/HCPCS: 36415; 71010; 80048; 80053; 80202; 81000; 82330; 83605; 83735; 84100; 84484; 85007; 85025; 85027; 85610; 85730; 87040; 87088; 93005; 93041; 94640; 94664; 96361; 96374

== ENCOUNTER 2017-08-26 09:00 | Outpatient (RCR) | payer MEDICARE, OTHER ==
[2017-07-02 11:49] LABS: BASOPHILS % (AUTO) 0 % (0-10); EOSINOPHILS # (AUTO) 0.1 10^3/uL (0.0-0.3); EOSINOPHILS % (AUTO) 2 % (0-10); LYMPHOCYTES # (AUTO) 0.9 X 10^3 (1.0-4.0); LYMPHOCYTES % (AUTO) 18 % (12-44); MEAN CORPUSCULAR HEMOGLOBIN 31 PG (25-34); MEAN CORPUSCULAR HGB CONC 35 G/DL (32-36); MEAN CORPUSCULAR VOLUME 89 FL (80-99); MEAN PLATELET VOLUME 8.6 FL (7.4-10.4); MONOCYTES # (AUTO) 0.5 X 10^3 (0.0-1.0); MONOCYTES % (AUTO) 12 % (0-12); NEUTROPHILS # (AUTO) 3.2 X 10^3 (1.8-7.8); NEUTROPHILS % (AUTO) 68 % (42-75); PLATELET COUNT 262 10^3/uL (130-400); RED BLOOD COUNT 3.81 10^6/uL (4.35-5.85); RED CELL DISTRIBUTION WIDTH 15.1 % (10.0-14.5); WHITE BLOOD COUNT 4.6 10^3/uL (4.3-11.0)
[2017-07-02 12:14] LABS: ALANINE AMINOTRANSFERASE 31 U/L (0-55); ALBUMIN 4.1 GM/DL (3.2-4.5); ANION GAP 7 MMOL/L (5-14); ASPARTATE AMINO TRANSFERASE 19 U/L (5-34); BILIRUBIN,TOTAL 0.9 MG/DL (0.1-1.0); BLOOD UREA NITROGEN 14 MG/DL (7-18); BUN/CREATININE RATIO 13; CALCIUM 12.8 MG/DL (8.5-10.1); CARBON DIOXIDE 26 MMOL/L (21-32); CHLORIDE 98 MMOL/L (98-107); CREATININE SERUM 1.04 MG/DL (0.60-1.30); GFR ESTIMATED > 60; GLUCOSE 120 MG/DL (70-105); SODIUM 131 MMOL/L (135-145); TOTAL PROTEIN 9.5 GM/DL (6.4-8.2)
[2017-07-03 02:47] LABS: LIGHT CHAIN KAPPA SERUM QUANT 421.87 mg/L (3.30-19.40); LIGHT CHAIN LAMBDA SERUM QUANT 1.26 mg/L (5.71-26.30)
[2017-07-22 15:26] LABS: BASOPHILS % (AUTO) 0 % (0-10); EOSINOPHILS # (AUTO) 0.1 10^3/uL (0.0-0.3); EOSINOPHILS % (AUTO) 2 % (0-10); LYMPHOCYTES # (AUTO) 1.1 X 10^3 (1.0-4.0); LYMPHOCYTES % (AUTO) 23 % (12-44); MEAN CORPUSCULAR HEMOGLOBIN 31 PG (25-34); MEAN CORPUSCULAR HGB CONC 35 G/DL (32-36); MEAN CORPUSCULAR VOLUME 88 FL (80-99); MEAN PLATELET VOLUME 8.1 FL (7.4-10.4); MONOCYTES # (AUTO) 0.6 X 10^3 (0.0-1.0); MONOCYTES % (AUTO) 13 % (0-12); NEUTROPHILS # (AUTO) 3.1 X 10^3 (1.8-7.8); NEUTROPHILS % (AUTO) 63 % (42-75); PLATELET COUNT 243 10^3/uL (130-400)
[2017-07-22 16:31] LABS: ALANINE AMINOTRANSFERASE 14 U/L (0-55); ALBUMIN 3.7 GM/DL (3.2-4.5); ANION GAP 4 MMOL/L (5-14); ASPARTATE AMINO TRANSFERASE 12 U/L (5-34); BILIRUBIN,TOTAL 0.7 MG/DL (0.1-1.0); BLOOD UREA NITROGEN 13 MG/DL (7-18); BUN/CREATININE RATIO 17; CALCIUM 10.8 MG/DL (8.5-10.1); CARBON DIOXIDE 24 MMOL/L (21-32); CHLORIDE 99 MMOL/L (98-107); CREATININE SERUM 0.76 MG/DL (0.60-1.30); GFR ESTIMATED > 60; GLUCOSE 94 MG/DL (70-105); POTASSIUM 4.6 MMOL/L (3.6-5.0); SODIUM 127 MMOL/L (135-145); TOTAL PROTEIN 8.7 GM/DL (6.4-8.2)
[2017-07-23 00:19] LABS: LIGHT CHAIN KAPPA SERUM QUANT 275.46 mg/L (3.30-19.40); LIGHT CHAIN LAMBDA SERUM QUANT 0.84 mg/L (5.71-26.30)
[2017-07-29 10:17] LABS: BASOPHILS % (AUTO) 0 % (0-10); EOSINOPHILS # (AUTO) 0.1 10^3/uL (0.0-0.3); EOSINOPHILS % (AUTO) 1 % (0-10); LYMPHOCYTES # (AUTO) 0.8 X 10^3 (1.0-4.0); LYMPHOCYTES % (AUTO) 17 % (12-44); MEAN CORPUSCULAR HEMOGLOBIN 31 PG (25-34); MEAN CORPUSCULAR HGB CONC 36 G/DL (32-36); MEAN CORPUSCULAR VOLUME 87 FL (80-99); MEAN PLATELET VOLUME 9.4 FL (7.4-10.4); MONOCYTES # (AUTO) 0.6 X 10^3 (0.0-1.0); MONOCYTES % (AUTO) 12 % (0-12); NEUTROPHILS # (AUTO) 3.3 X 10^3 (1.8-7.8); NEUTROPHILS % (AUTO) 70 % (42-75); PLATELET COUNT 167 10^3/uL (130-400); RED BLOOD COUNT 3.47 10^6/uL (4.35-5.85); RED CELL DISTRIBUTION WIDTH 14.6 % (10.0-14.5); WHITE BLOOD COUNT 4.8 10^3/uL (4.3-11.0)
[2017-07-29 10:36] LABS: ANION GAP 4 MMOL/L (5-14); BLOOD UREA NITROGEN 14 MG/DL (7-18); BUN/CREATININE RATIO 20; CALCIUM 9.5 MG/DL (8.5-10.1); CARBON DIOXIDE 22 MMOL/L (21-32); CHLORIDE 94 MMOL/L (98-107); CREATININE SERUM 0.71 MG/DL (0.60-1.30); GFR ESTIMATED > 60; GLUCOSE 98 MG/DL (70-105); POTASSIUM 4.5 MMOL/L (3.6-5.0)
[2017-07-29 10:39] LABS: SODIUM 120 MMOL/L (135-145)
[2017-08-12 10:26] LABS: BASOPHILS % (AUTO) 0 % (0-10); EOSINOPHILS # (AUTO) 0.1 10^3/uL (0.0-0.3); EOSINOPHILS % (AUTO) 3 % (0-10); LYMPHOCYTES # (AUTO) 0.4 X 10^3 (1.0-4.0); LYMPHOCYTES % (AUTO) 22 % (12-44); MEAN CORPUSCULAR HEMOGLOBIN 32 PG (25-34); MEAN CORPUSCULAR HGB CONC 33 G/DL (32-36); MEAN CORPUSCULAR VOLUME 96 FL (80-99); MEAN PLATELET VOLUME 9.6 FL (7.4-10.4); MONOCYTES # (AUTO) 0.4 X 10^3 (0.0-1.0); MONOCYTES % (AUTO) 18 % (0-12); NEUTROPHILS # (AUTO) 1.1 X 10^3 (1.8-7.8); NEUTROPHILS % (AUTO) 57 % (42-75); PLATELET COUNT 89 10^3/uL (130-400); RED BLOOD COUNT 2.57 10^6/uL (4.35-5.85)
[2017-08-12 10:57] LABS: ALANINE AMINOTRANSFERASE 15 U/L (0-55); ALBUMIN 3.5 GM/DL (3.2-4.5); ANION GAP 5 MMOL/L (5-14); ASPARTATE AMINO TRANSFERASE 8 U/L (5-34); BILIRUBIN,TOTAL 0.6 MG/DL (0.1-1.0); BLOOD UREA NITROGEN 12 MG/DL (7-18); BUN/CREATININE RATIO 17; CALCIUM 9.7 MG/DL (8.5-10.1); CARBON DIOXIDE 24 MMOL/L (21-32); CHLORIDE 107 MMOL/L (98-107); CREATININE SERUM 0.72 MG/DL (0.60-1.30); GFR ESTIMATED > 60; GLUCOSE 92 MG/DL (70-105); POTASSIUM 4.5 MMOL/L (3.6-5.0); SODIUM 136 MMOL/L (135-145); TOTAL PROTEIN 5.6 GM/DL (6.4-8.2)
[2017-08-13 03:32] LABS: IMMUNOGLOBULIN IGA <2.0 (71-263); IMMUNOGLOBULIN IGG 849 mg/dL (672-1680)
[2017-08-13 07:59] LABS: IMMUNOGLOBULIN IGM 14 mg/dL (47-209)
[2017-08-19 09:49] LABS: BASOPHILS % (AUTO) 0 % (0-10); EOSINOPHILS # (AUTO) 0.1 10^3/uL (0.0-0.3); EOSINOPHILS % (AUTO) 3 % (0-10); LYMPHOCYTES # (AUTO) 0.5 X 10^3 (1.0-4.0); LYMPHOCYTES % (AUTO) 24 % (12-44); MEAN CORPUSCULAR HEMOGLOBIN 32 PG (25-34); MEAN CORPUSCULAR HGB CONC 33 G/DL (32-36); MEAN CORPUSCULAR VOLUME 96 FL (80-99); MEAN PLATELET VOLUME 10.5 FL (7.4-10.4); MONOCYTES # (AUTO) 0.2 X 10^3 (0.0-1.0); MONOCYTES % (AUTO) 10 % (0-12); NEUTROPHILS # (AUTO) 1.3 X 10^3 (1.8-7.8); NEUTROPHILS % (AUTO) 63 % (42-75); PLATELET COUNT 57 10^3/uL (130-400); RED CELL DISTRIBUTION WIDTH 18.6 % (10.0-14.5); WHITE BLOOD COUNT 2.1 10^3/uL (4.3-11.0)
[2017-08-19 10:13] LABS: ALANINE AMINOTRANSFERASE 16 U/L (0-55); ALBUMIN 3.5 GM/DL (3.2-4.5); ANION GAP 5 MMOL/L (5-14); ASPARTATE AMINO TRANSFERASE 8 U/L (5-34); BILIRUBIN,TOTAL 0.8 MG/DL (0.1-1.0); BLOOD UREA NITROGEN 9 MG/DL (7-18); BUN/CREATININE RATIO 13; CALCIUM 9.7 MG/DL (8.5-10.1); CARBON DIOXIDE 24 MMOL/L (21-32); CHLORIDE 106 MMOL/L (98-107); CREATININE SERUM 0.68 MG/DL (0.60-1.30); GFR ESTIMATED > 60; GLUCOSE 90 MG/DL (70-105); POTASSIUM 4.1 MMOL/L (3.6-5.0); SODIUM 135 MMOL/L (135-145); TOTAL PROTEIN 5.1 GM/DL (6.4-8.2)
[2017-08-22 09:20] LABS: BASOPHILS % (AUTO) 0 % (0-10); EOSINOPHILS % (AUTO) 0 % (0-10); LYMPHOCYTES # (AUTO) 0.3 X 10^3 (1.0-4.0); LYMPHOCYTES % (AUTO) 8 % (12-44); MEAN CORPUSCULAR HEMOGLOBIN 32 PG (25-34); MEAN CORPUSCULAR HGB CONC 34 G/DL (32-36); MEAN CORPUSCULAR VOLUME 96 FL (80-99); MEAN PLATELET VOLUME 11.3 FL (7.4-10.4); MONOCYTES # (AUTO) 0.5 X 10^3 (0.0-1.0); MONOCYTES % (AUTO) 11 % (0-12); NEUTROPHILS # (AUTO) 3.5 X 10^3 (1.8-7.8); NEUTROPHILS % (AUTO) 82 % (42-75); PLATELET COUNT 46 10^3/uL (130-400); RED BLOOD COUNT 2.98 10^6/uL (4.35-5.85); RED CELL DISTRIBUTION WIDTH 18.4 % (10.0-14.5); WHITE BLOOD COUNT 4.3 10^3/uL (4.3-11.0)
[~2017-08-26] VITALS: Ht 168.9 cm; Wt 93.4 kg
[~2017-08-26 09:00] MED LIST changes: +ACYC800T PO; +ALLO300T2 PO; +ASPI325T32 PO; +BORTEZOMIB 3.5 MG VELCADE SC SCH; +CHOL500050 PO; +DEXA4TAB PO; +DILT180C PO; +DILT240C63 PO; +DOCU-143 PO; +ERGO50006 PO; +FLUT9.9S NS; +GUAI-813 PO; +HYDR-3812 PO; +HYDROcodone/APAP 5 MG/325 MG (LORTAB) CANCER CTR PO ONE; +LENA25CA PO; +LEVO750T39; +LISI-552 PO; +ONDA8TAB12 PO; +PANT40TA3 PO; +POLY17PO6 PO; +RT-ALBUINH IH; +SULF-222 PO; +SULF1TAB35 PO; +ZOLEDRONIC ACID (CANCER CTR) 4 MG in NS (IVPB) CANCER CENTER 100 ML IV SCH
[2017-08-26 09:18] LABS: BASOPHILS % (AUTO) 0 % (0-10); EOSINOPHILS # (AUTO) 0.1 10^3/uL (0.0-0.3); EOSINOPHILS % (AUTO) 2 % (0-10); LYMPHOCYTES # (AUTO) 0.4 X 10^3 (1.0-4.0); LYMPHOCYTES % (AUTO) 12 % (12-44); MEAN CORPUSCULAR HEMOGLOBIN 32 PG (25-34); MEAN CORPUSCULAR HGB CONC 34 G/DL (32-36); MEAN CORPUSCULAR VOLUME 95 FL (80-99); MEAN PLATELET VOLUME 12.9 FL (7.4-10.4); MONOCYTES # (AUTO) 0.5 X 10^3 (0.0-1.0); MONOCYTES % (AUTO) 18 % (0-12); NEUTROPHILS % (AUTO) 67 % (42-75); RED BLOOD COUNT 3.14 10^6/uL (4.35-5.85); RED CELL DISTRIBUTION WIDTH 18.3 % (10.0-14.5)
[2017-08-26 09:23] LABS: PLATELET COUNT 27 10^3/uL (130-400)
[2017-08-26 09:35] LABS: ALANINE AMINOTRANSFERASE 25 U/L (0-55); ALBUMIN 3.6 GM/DL (3.2-4.5); ANION GAP 6 MMOL/L (5-14); ASPARTATE AMINO TRANSFERASE 10 U/L (5-34); BLOOD UREA NITROGEN 12 MG/DL (7-18); BUN/CREATININE RATIO 16; CARBON DIOXIDE 22 MMOL/L (21-32); CHLORIDE 106 MMOL/L (98-107); CREATININE SERUM 0.74 MG/DL (0.60-1.30); GFR ESTIMATED > 60; GLUCOSE 79 MG/DL (70-105); SODIUM 134 MMOL/L (135-145); TOTAL PROTEIN 5.6 GM/DL (6.4-8.2)
== END 2017-08-28 11:16 | disposition home or self-care (01) ==
LOC: ONC 09:00
PROVIDERS: ATTEND Internal Medicine Hematology & Oncology
DX: C90.00 Multiple myeloma not having achieved remission (principal); E83.52 Hypercalcemia; D61.818 Other pancytopenia; B37.2 Candidiasis of skin and nail; M89.9 Disorder of bone, unspecified; I48.91 Unspecified atrial fibrillation; I10 Essential (primary) hypertension; Z79.899 Other long term (current) drug therapy
CPT/HCPCS: 36415; 80048; 80053; 82232; 82784; 83883; 85025; 96365; 96401; 96402; 99214

== ENCOUNTER → 2017-09-22 | Outpatient (CLI) | payer MEDICARE, OTHER ==
[~2017-09-22] MED LIST changes: -BORTEZOMIB 3.5 MG VELCADE SC SCH; -HYDROcodone/APAP 5 MG/325 MG (LORTAB) CANCER CTR PO ONE; -ZOLEDRONIC ACID (CANCER CTR) 4 MG in NS (IVPB) CANCER CENTER 100 ML IV SCH
== END ==
LOC: LAB 12:48
PROVIDERS: ATTEND Urology
DX: N40.1 Benign prostatic hyperplasia with lower urinary tract symptoms (principal); E29.1 Testicular hypofunction; R97.20 Elevated prostate specific antigen [PSA]
CPT/HCPCS: 36415; 84153; 84403

== ENCOUNTER 2017-10-07 08:03 | Outpatient (RCR) | payer MEDICARE, OTHER ==
[~2017-10-07 08:03] MED LIST changes: +ACHD5005 PO; -HYDR-3812 PO
== END 2017-12-09 | disposition home or self-care (01) ==
LOC: CARD 08:03
PROVIDERS: ATTEND Internal Medicine Interventional Cardiology
DX: I48.91 Unspecified atrial fibrillation (principal); D64.9 Anemia, unspecified; C90.00 Multiple myeloma not having achieved remission
CPT/HCPCS: 93270

== ENCOUNTER 2017-10-13 08:43 | Outpatient (RCR) | payer MEDICARE, OTHER ==
[2017-09-01 10:48] LABS: BASOPHILS % (AUTO) 0 % (0-10); EOSINOPHILS # (AUTO) 0.2 10^3/uL (0.0-0.3); EOSINOPHILS % (AUTO) 7 % (0-10); HEMATOCRIT 30 % (40-54); HEMOGLOBIN 10.3 G/DL (13.3-17.7); LYMPHOCYTES # (AUTO) 0.3 X 10^3 (1.0-4.0); LYMPHOCYTES % (AUTO) 10 % (12-44); MEAN CORPUSCULAR HEMOGLOBIN 33 PG (25-34); MEAN CORPUSCULAR HGB CONC 34 G/DL (32-36); MEAN CORPUSCULAR VOLUME 97 FL (80-99); MONOCYTES # (AUTO) 0.5 X 10^3 (0.0-1.0); MONOCYTES % (AUTO) 18 % (0-12); NEUTROPHILS # (AUTO) 1.8 X 10^3 (1.8-7.8); NEUTROPHILS % (AUTO) 65 % (42-75); PLATELET COUNT 125 10^3/uL (130-400); RED BLOOD COUNT 3.14 10^6/uL (4.35-5.85); RED CELL DISTRIBUTION WIDTH 19.1 % (10.0-14.5); WHITE BLOOD COUNT 2.7 10^3/uL (4.3-11.0)
[2017-09-01 11:17] LABS: ALANINE AMINOTRANSFERASE 19 U/L (0-55); ALBUMIN 3.7 GM/DL (3.2-4.5); ALKALINE PHOSPHATASE 104 U/L (40-136); BILIRUBIN,TOTAL 0.9 MG/DL (0.1-1.0); BUN/CREATININE RATIO 18; CALCIUM 9.9 MG/DL (8.5-10.1); CARBON DIOXIDE 20 MMOL/L (21-32); CHLORIDE 108 MMOL/L (98-107); CREATININE SERUM 0.65 MG/DL (0.60-1.30); GFR ESTIMATED > 60; GLUCOSE 90 MG/DL (70-105); POTASSIUM 3.9 MMOL/L (3.6-5.0); SODIUM 136 MMOL/L (135-145); TOTAL PROTEIN 5.7 GM/DL (6.4-8.2)
[2017-09-08 09:21] LABS: BASOPHILS % (AUTO) 0 % (0-10); EOSINOPHILS # (AUTO) 0.2 10^3/uL (0.0-0.3); EOSINOPHILS % (AUTO) 9 % (0-10); HEMATOCRIT 31 % (40-54); HEMOGLOBIN 10.2 G/DL (13.3-17.7); LYMPHOCYTES # (AUTO) 0.3 X 10^3 (1.0-4.0); LYMPHOCYTES % (AUTO) 11 % (12-44); MEAN CORPUSCULAR HEMOGLOBIN 33 PG (25-34); MEAN CORPUSCULAR HGB CONC 33 G/DL (32-36); MEAN CORPUSCULAR VOLUME 97 FL (80-99); MEAN PLATELET VOLUME 11.6 FL (7.4-10.4); MONOCYTES # (AUTO) 0.1 X 10^3 (0.0-1.0); MONOCYTES % (AUTO) 5 % (0-12); NEUTROPHILS # (AUTO) 1.7 X 10^3 (1.8-7.8); NEUTROPHILS % (AUTO) 75 % (42-75); PLATELET COUNT 67 10^3/uL (130-400); RED BLOOD COUNT 3.14 10^6/uL (4.35-5.85); RED CELL DISTRIBUTION WIDTH 18.7 % (10.0-14.5); WHITE BLOOD COUNT 2.2 10^3/uL (4.3-11.0)
[2017-09-08 09:43] LABS: ALANINE AMINOTRANSFERASE 19 U/L (0-55); ALBUMIN 3.5 GM/DL (3.2-4.5); ALKALINE PHOSPHATASE 92 U/L (40-136); BILIRUBIN,TOTAL 0.9 MG/DL (0.1-1.0); BUN/CREATININE RATIO 13; CALCIUM 9.8 MG/DL (8.5-10.1); CARBON DIOXIDE 24 MMOL/L (21-32); CHLORIDE 107 MMOL/L (98-107); CREATININE SERUM 0.67 MG/DL (0.60-1.30); GFR ESTIMATED > 60; GLUCOSE 98 MG/DL (70-105); POTASSIUM 3.6 MMOL/L (3.6-5.0); SODIUM 135 MMOL/L (135-145); TOTAL PROTEIN 5.2 GM/DL (6.4-8.2)
[2017-09-15 09:33] LABS: BASOPHILS % (AUTO) 0 % (0-10); EOSINOPHILS # (AUTO) 0.1 10^3/uL (0.0-0.3); EOSINOPHILS % (AUTO) 2 % (0-10); HEMATOCRIT 31 % (40-54); HEMOGLOBIN 10.3 G/DL (13.3-17.7); LYMPHOCYTES # (AUTO) 0.4 X 10^3 (1.0-4.0); LYMPHOCYTES % (AUTO) 18 % (12-44); MEAN CORPUSCULAR HEMOGLOBIN 32 PG (25-34); MEAN CORPUSCULAR HGB CONC 33 G/DL (32-36); MEAN CORPUSCULAR VOLUME 98 FL (80-99); MONOCYTES # (AUTO) 0.4 X 10^3 (0.0-1.0); MONOCYTES % (AUTO) 17 % (0-12); NEUTROPHILS # (AUTO) 1.4 X 10^3 (1.8-7.8); NEUTROPHILS % (AUTO) 63 % (42-75); WHITE BLOOD COUNT 2.2 10^3/uL (4.3-11.0)
[2017-09-15 09:37] LABS: PLATELET COUNT 38 10^3/uL (130-400)
[2017-09-15 09:50] LABS: ALANINE AMINOTRANSFERASE 17 U/L (0-55); ALBUMIN 3.4 GM/DL (3.2-4.5); ALKALINE PHOSPHATASE 93 U/L (40-136); BILIRUBIN,TOTAL 0.8 MG/DL (0.1-1.0); BUN/CREATININE RATIO 13; CALCIUM 9.9 MG/DL (8.5-10.1); CARBON DIOXIDE 25 MMOL/L (21-32); CHLORIDE 106 MMOL/L (98-107); CREATININE SERUM 0.63 MG/DL (0.60-1.30); GFR ESTIMATED > 60; GLUCOSE 85 MG/DL (70-105); POTASSIUM 3.9 MMOL/L (3.6-5.0); SODIUM 136 MMOL/L (135-145)
[2017-09-22 13:07] LABS: BASOPHILS % (AUTO) 2 % (0-10); EOSINOPHILS # (AUTO) 0.1 10^3/uL (0.0-0.3); EOSINOPHILS % (AUTO) 2 % (0-10); HEMATOCRIT 31 % (40-54); HEMOGLOBIN 10.4 G/DL (13.3-17.7); LYMPHOCYTES # (AUTO) 0.6 X 10^3 (1.0-4.0); LYMPHOCYTES % (AUTO) 22 % (12-44); MEAN CORPUSCULAR HEMOGLOBIN 33 PG (25-34); MEAN CORPUSCULAR HGB CONC 33 G/DL (32-36); MEAN CORPUSCULAR VOLUME 99 FL (80-99); MEAN PLATELET VOLUME 9.1 FL (7.4-10.4); MONOCYTES # (AUTO) 0.6 X 10^3 (0.0-1.0); MONOCYTES % (AUTO) 24 % (0-12); NEUTROPHILS # (AUTO) 1.3 X 10^3 (1.8-7.8); NEUTROPHILS % (AUTO) 51 % (42-75); PLATELET COUNT 174 10^3/uL (130-400); RED BLOOD COUNT 3.18 10^6/uL (4.35-5.85); RED CELL DISTRIBUTION WIDTH 18.2 % (10.0-14.5); WHITE BLOOD COUNT 2.6 10^3/uL (4.3-11.0)
[2017-09-22 13:26] LABS: ALANINE AMINOTRANSFERASE 16 U/L (0-55); ALBUMIN 3.6 GM/DL (3.2-4.5); ALKALINE PHOSPHATASE 105 U/L (40-136); BILIRUBIN,TOTAL 0.8 MG/DL (0.1-1.0); BUN/CREATININE RATIO 10; CALCIUM 9.8 MG/DL (8.5-10.1); CARBON DIOXIDE 26 MMOL/L (21-32); CHLORIDE 107 MMOL/L (98-107); CREATININE SERUM 0.67 MG/DL (0.60-1.30); GFR ESTIMATED > 60; GLUCOSE 114 MG/DL (70-105); POTASSIUM 4.2 MMOL/L (3.6-5.0); SODIUM 136 MMOL/L (135-145); TOTAL PROTEIN 5.3 GM/DL (6.4-8.2)
[2017-09-29 09:14] LABS: BASOPHILS % (AUTO) 0 % (0-10); EOSINOPHILS # (AUTO) 0.1 10^3/uL (0.0-0.3); EOSINOPHILS % (AUTO) 2 % (0-10); HEMATOCRIT 34 % (40-54); HEMOGLOBIN 11.3 G/DL (13.3-17.7); LYMPHOCYTES # (AUTO) 0.5 X 10^3 (1.0-4.0); LYMPHOCYTES % (AUTO) 23 % (12-44); MEAN CORPUSCULAR HEMOGLOBIN 33 PG (25-34); MEAN CORPUSCULAR HGB CONC 34 G/DL (32-36); MEAN CORPUSCULAR VOLUME 97 FL (80-99); MEAN PLATELET VOLUME 10.6 FL (7.4-10.4); MONOCYTES # (AUTO) 0.3 X 10^3 (0.0-1.0); MONOCYTES % (AUTO) 15 % (0-12); NEUTROPHILS # (AUTO) 1.2 X 10^3 (1.8-7.8); NEUTROPHILS % (AUTO) 59 % (42-75); PLATELET COUNT 93 10^3/uL (130-400); RED BLOOD COUNT 3.47 10^6/uL (4.35-5.85); RED CELL DISTRIBUTION WIDTH 16.7 % (10.0-14.5); WHITE BLOOD COUNT 2.1 10^3/uL (4.3-11.0)
[2017-09-29 09:36] LABS: ALANINE AMINOTRANSFERASE 13 U/L (0-55); ALBUMIN 3.6 GM/DL (3.2-4.5); ALKALINE PHOSPHATASE 95 U/L (40-136); BILIRUBIN,TOTAL 0.9 MG/DL (0.1-1.0); BUN/CREATININE RATIO 13; CARBON DIOXIDE 22 MMOL/L (21-32); CHLORIDE 105 MMOL/L (98-107); CREATININE SERUM 0.63 MG/DL (0.60-1.30); GFR ESTIMATED > 60; GLUCOSE 91 MG/DL (70-105); POTASSIUM 3.9 MMOL/L (3.6-5.0); SODIUM 135 MMOL/L (135-145); TOTAL PROTEIN 5.3 GM/DL (6.4-8.2)
[2017-10-06 09:12] LABS: BASOPHILS % (AUTO) 0 % (0-10); EOSINOPHILS # (AUTO) 0.1 10^3/uL (0.0-0.3); EOSINOPHILS % (AUTO) 2 % (0-10); HEMATOCRIT 35 % (40-54); HEMOGLOBIN 11.7 G/DL (13.3-17.7); LYMPHOCYTES # (AUTO) 0.3 X 10^3 (1.0-4.0); LYMPHOCYTES % (AUTO) 7 % (12-44); MEAN CORPUSCULAR HEMOGLOBIN 33 PG (25-34); MEAN CORPUSCULAR HGB CONC 34 G/DL (32-36); MEAN CORPUSCULAR VOLUME 96 FL (80-99); MEAN PLATELET VOLUME 12.1 FL (7.4-10.4); MONOCYTES # (AUTO) 0.8 X 10^3 (0.0-1.0); MONOCYTES % (AUTO) 18 % (0-12); NEUTROPHILS # (AUTO) 3.1 X 10^3 (1.8-7.8); NEUTROPHILS % (AUTO) 73 % (42-75); PLATELET COUNT 74 10^3/uL (130-400); RED BLOOD COUNT 3.58 10^6/uL (4.35-5.85); RED CELL DISTRIBUTION WIDTH 15.9 % (10.0-14.5); WHITE BLOOD COUNT 4.3 10^3/uL (4.3-11.0)
[2017-10-06 09:38] LABS: ALANINE AMINOTRANSFERASE 14 U/L (0-55); ALBUMIN 3.5 GM/DL (3.2-4.5); ALKALINE PHOSPHATASE 80 U/L (40-136); BILIRUBIN,TOTAL 0.8 MG/DL (0.1-1.0); BUN/CREATININE RATIO 13; CALCIUM 9.8 MG/DL (8.5-10.1); CARBON DIOXIDE 24 MMOL/L (21-32); CHLORIDE 105 MMOL/L (98-107); CREATININE SERUM 0.62 MG/DL (0.60-1.30); GFR ESTIMATED > 60; GLUCOSE 96 MG/DL (70-105); SODIUM 134 MMOL/L (135-145); TOTAL PROTEIN 5.3 GM/DL (6.4-8.2)
[~2017-10-13] VITALS: Ht 167.6 cm; Wt 91.6 kg
[~2017-10-13 08:43] MED LIST changes: +BORTEZOMIB 3.5 MG VELCADE SC SCH; +ZOLEDRONIC ACID (CANCER CTR) 4 MG in NS (IVPB) CANCER CENTER 100 ML IV SCH
[2017-10-13 09:23] LABS: BASOPHILS % (AUTO) 0 % (0-10); EOSINOPHILS % (AUTO) 1 % (0-10); HEMATOCRIT 35 % (40-54); HEMOGLOBIN 11.7 G/DL (13.3-17.7); LYMPHOCYTES # (AUTO) 0.5 X 10^3 (1.0-4.0); LYMPHOCYTES % (AUTO) 15 % (12-44); MEAN CORPUSCULAR HEMOGLOBIN 33 PG (25-34); MEAN CORPUSCULAR HGB CONC 34 G/DL (32-36); MEAN CORPUSCULAR VOLUME 97 FL (80-99); MEAN PLATELET VOLUME 9.3 FL (7.4-10.4); MONOCYTES # (AUTO) 0.6 X 10^3 (0.0-1.0); MONOCYTES % (AUTO) 16 % (0-12); NEUTROPHILS # (AUTO) 2.3 X 10^3 (1.8-7.8); NEUTROPHILS % (AUTO) 68 % (42-75); PLATELET COUNT 148 10^3/uL (130-400); RED CELL DISTRIBUTION WIDTH 15.3 % (10.0-14.5); WHITE BLOOD COUNT 3.5 10^3/uL (4.3-11.0)
[2017-10-13 09:45] LABS: ALANINE AMINOTRANSFERASE 18 U/L (0-55); ALBUMIN 3.6 GM/DL (3.2-4.5); ALKALINE PHOSPHATASE 84 U/L (40-136); BILIRUBIN,TOTAL 0.6 MG/DL (0.1-1.0); BUN/CREATININE RATIO 13; CALCIUM 9.4 MG/DL (8.5-10.1); CARBON DIOXIDE 24 MMOL/L (21-32); CHLORIDE 107 MMOL/L (98-107); CREATININE SERUM 0.62 MG/DL (0.60-1.30); GFR ESTIMATED > 60; GLUCOSE 97 MG/DL (70-105); POTASSIUM 4.1 MMOL/L (3.6-5.0); SODIUM 137 MMOL/L (135-145); TOTAL PROTEIN 5.2 GM/DL (6.4-8.2)
== END 2017-11-30 | disposition home or self-care (01) ==
LOC: ONC 08:43
PROVIDERS: ATTEND Internal Medicine Hematology & Oncology
DX: C90.00 Multiple myeloma not having achieved remission (principal); I48.91 Unspecified atrial fibrillation; I10 Essential (primary) hypertension; Z79.899 Other long term (current) drug therapy; E83.52 Hypercalcemia; R21 Rash and other nonspecific skin eruption; M89.9 Disorder of bone, unspecified
CPT/HCPCS: 36415; 80053; 82784; 83883; 85025; 96365; 96401; 96402; 99213

== ENCOUNTER 2017-12-03 11:19 | Outpatient (RCR) | payer MEDICARE, OTHER ==
[~2017-12-03 11:19] MED LIST changes: -BORTEZOMIB 3.5 MG VELCADE SC SCH; -ZOLEDRONIC ACID (CANCER CTR) 4 MG in NS (IVPB) CANCER CENTER 100 ML IV SCH
[2017-12-03 11:33] LABS: BASOPHILS % (AUTO) 1 % (0-10); EOSINOPHILS # (AUTO) 0.1 10^3/uL (0.0-0.3); EOSINOPHILS % (AUTO) 2 % (0-10); HEMATOCRIT 38 % (40-54); HEMOGLOBIN 12.9 G/DL (13.3-17.7); LYMPHOCYTES # (AUTO) 1.6 X 10^3 (1.0-4.0); LYMPHOCYTES % (AUTO) 38 % (12-44); MEAN CORPUSCULAR HEMOGLOBIN 31 PG (25-34); MEAN CORPUSCULAR HGB CONC 34 G/DL (32-36); MEAN CORPUSCULAR VOLUME 91 FL (80-99); MEAN PLATELET VOLUME 9.1 FL (7.4-10.4); MONOCYTES # (AUTO) 1.1 X 10^3 (0.0-1.0); MONOCYTES % (AUTO) 25 % (0-12); NEUTROPHILS # (AUTO) 1.5 X 10^3 (1.8-7.8); NEUTROPHILS % (AUTO) 35 % (42-75); PLATELET COUNT 182 10^3/uL (130-400); RED BLOOD COUNT 4.15 10^6/uL (4.35-5.85); RED CELL DISTRIBUTION WIDTH 16.5 % (10.0-14.5); WHITE BLOOD COUNT 4.3 10^3/uL (4.3-11.0)
[2017-12-03 11:52] LABS: ALANINE AMINOTRANSFERASE 12 U/L (0-55); ALBUMIN 3.9 GM/DL (3.2-4.5); ALKALINE PHOSPHATASE 82 U/L (40-136); BILIRUBIN,TOTAL 0.8 MG/DL (0.1-1.0); BUN/CREATININE RATIO 10; CALCIUM 11.4 MG/DL (8.5-10.1); CARBON DIOXIDE 25 MMOL/L (21-32); CHLORIDE 104 MMOL/L (98-107); CREATININE SERUM 0.77 MG/DL (0.60-1.30); GFR ESTIMATED > 60; GLUCOSE 111 MG/DL (70-105); POTASSIUM 4.4 MMOL/L (3.6-5.0); SODIUM 137 MMOL/L (135-145); TOTAL PROTEIN 6.4 GM/DL (6.4-8.2)
[2017-12-03] MEDS ORDERED: NS IV 1000 ML (CANCER CTR) 1,000 ML ONE (12:11)
[2017-12-10 07:23] LABS: IMMUNOFIX PATH REPORT NUMBER Complete (Complete)
== END 2017-12-11 08:49 | disposition home or self-care (01) ==
LOC: ONC 11:19
PROVIDERS: ATTEND Internal Medicine Hematology & Oncology
DX: C90.00 Multiple myeloma not having achieved remission (principal); I48.91 Unspecified atrial fibrillation; I10 Essential (primary) hypertension; Z79.899 Other long term (current) drug therapy
CPT/HCPCS: 80053; 82306; 82784; 83883; 83970; 84100; 84155; 84165; 85025; 86334; 96360; 96361

== ENCOUNTER 2018-02-19 09:40 | Outpatient (RCR) | payer MEDICARE, OTHER ==
[2017-12-11 09:31] LABS: PHOSPHORUS 2.6 MG/DL (2.3-4.7)
[2017-12-11 13:39] LABS: BASOPHILS % (AUTO) 0 % (0-10); EOSINOPHILS # (AUTO) 0.1 10^3/uL (0.0-0.3); EOSINOPHILS % (AUTO) 2 % (0-10); HEMATOCRIT 38 % (40-54); HEMOGLOBIN 13.2 G/DL (13.3-17.7); LYMPHOCYTES # (AUTO) 1.4 X 10^3 (1.0-4.0); LYMPHOCYTES % (AUTO) 29 % (12-44); MEAN CORPUSCULAR HEMOGLOBIN 32 PG (25-34); MEAN CORPUSCULAR HGB CONC 35 G/DL (32-36); MEAN CORPUSCULAR VOLUME 93 FL (80-99); MEAN PLATELET VOLUME 9.3 FL (7.4-10.4); MONOCYTES # (AUTO) 0.8 X 10^3 (0.0-1.0); MONOCYTES % (AUTO) 16 % (0-12); NEUTROPHILS # (AUTO) 2.5 X 10^3 (1.8-7.8); NEUTROPHILS % (AUTO) 52 % (42-75); PLATELET COUNT 159 10^3/uL (130-400); RED BLOOD COUNT 4.14 10^6/uL (4.35-5.85); RED CELL DISTRIBUTION WIDTH 17.4 % (10.0-14.5); WHITE BLOOD COUNT 4.8 10^3/uL (4.3-11.0)
[2017-12-11 14:06] LABS: ALANINE AMINOTRANSFERASE 12 U/L (0-55); ALBUMIN 3.8 GM/DL (3.2-4.5); ALKALINE PHOSPHATASE 71 U/L (40-136); BILIRUBIN,TOTAL 0.6 MG/DL (0.1-1.0); BUN/CREATININE RATIO 12; CARBON DIOXIDE 23 MMOL/L (21-32); CHLORIDE 105 MMOL/L (98-107); CREATININE SERUM 0.76 MG/DL (0.60-1.30); GFR ESTIMATED > 60; GLUCOSE 105 MG/DL (70-105); POTASSIUM 3.9 MMOL/L (3.6-5.0); SODIUM 137 MMOL/L (135-145); TOTAL PROTEIN 6.4 GM/DL (6.4-8.2)
[2017-12-25 09:18] LABS: BASOPHILS % (AUTO) 0 % (0-10); EOSINOPHILS # (AUTO) 0.1 10^3/uL (0.0-0.3); EOSINOPHILS % (AUTO) 1 % (0-10); HEMATOCRIT 40 % (40-54); LYMPHOCYTES # (AUTO) 1.8 X 10^3 (1.0-4.0); LYMPHOCYTES % (AUTO) 39 % (12-44); MEAN CORPUSCULAR HEMOGLOBIN 32 PG (25-34); MEAN CORPUSCULAR HGB CONC 35 G/DL (32-36); MEAN CORPUSCULAR VOLUME 91 FL (80-99); MEAN PLATELET VOLUME 9.4 FL (7.4-10.4); MONOCYTES # (AUTO) 0.7 X 10^3 (0.0-1.0); MONOCYTES % (AUTO) 14 % (0-12); NEUTROPHILS # (AUTO) 2.2 X 10^3 (1.8-7.8); NEUTROPHILS % (AUTO) 46 % (42-75); PLATELET COUNT 145 10^3/uL (130-400); RED CELL DISTRIBUTION WIDTH 16.7 % (10.0-14.5); WHITE BLOOD COUNT 4.7 10^3/uL (4.3-11.0)
[2017-12-25 09:36] LABS: ALANINE AMINOTRANSFERASE 12 U/L (0-55); ALKALINE PHOSPHATASE 84 U/L (40-136); BILIRUBIN,TOTAL 0.6 MG/DL (0.1-1.0); BUN/CREATININE RATIO 13; CALCIUM 11.6 MG/DL (8.5-10.1); CARBON DIOXIDE 24 MMOL/L (21-32); CHLORIDE 106 MMOL/L (98-107); GFR ESTIMATED > 60; GLUCOSE 83 MG/DL (70-105); POTASSIUM 3.9 MMOL/L (3.6-5.0); SODIUM 139 MMOL/L (135-145); TOTAL PROTEIN 6.7 GM/DL (6.4-8.2)
[2018-01-15 08:56] LABS: BASOPHILS % (AUTO) 0 % (0-10); EOSINOPHILS # (AUTO) 0.1 10^3/uL (0.0-0.3); EOSINOPHILS % (AUTO) 2 % (0-10); HEMATOCRIT 38 % (40-54); HEMOGLOBIN 13.6 G/DL (13.3-17.7); LYMPHOCYTES # (AUTO) 1.1 X 10^3 (1.0-4.0); LYMPHOCYTES % (AUTO) 37 % (12-44); MEAN CORPUSCULAR HEMOGLOBIN 33 PG (25-34); MEAN CORPUSCULAR HGB CONC 36 G/DL (32-36); MEAN CORPUSCULAR VOLUME 90 FL (80-99); MEAN PLATELET VOLUME 9.1 FL (7.4-10.4); MONOCYTES # (AUTO) 0.5 X 10^3 (0.0-1.0); MONOCYTES % (AUTO) 17 % (0-12); NEUTROPHILS # (AUTO) 1.3 X 10^3 (1.8-7.8); NEUTROPHILS % (AUTO) 44 % (42-75); PLATELET COUNT 120 10^3/uL (130-400); RED BLOOD COUNT 4.19 10^6/uL (4.35-5.85); RED CELL DISTRIBUTION WIDTH 15.5 % (10.0-14.5); WHITE BLOOD COUNT 2.9 10^3/uL (4.3-11.0)
[2018-01-15 09:14] LABS: ALANINE AMINOTRANSFERASE 8 U/L (0-55); ALKALINE PHOSPHATASE 85 U/L (40-136); BILIRUBIN,TOTAL 0.7 MG/DL (0.1-1.0); BUN/CREATININE RATIO 10; CALCIUM 10.9 MG/DL (8.5-10.1); CARBON DIOXIDE 24 MMOL/L (21-32); CHLORIDE 107 MMOL/L (98-107); CREATININE SERUM 0.71 MG/DL (0.60-1.30); GFR ESTIMATED > 60; GLUCOSE 72 MG/DL (70-105); POTASSIUM 3.7 MMOL/L (3.6-5.0); SODIUM 139 MMOL/L (135-145); TOTAL PROTEIN 6.4 GM/DL (6.4-8.2)
[2018-01-19 09:24] LABS: BASOPHILS % (AUTO) 0 % (0-10); EOSINOPHILS # (AUTO) 0.1 10^3/uL (0.0-0.3); EOSINOPHILS % (AUTO) 2 % (0-10); HEMATOCRIT 38 % (40-54); HEMOGLOBIN 13.4 G/DL (13.3-17.7); LYMPHOCYTES # (AUTO) 1.3 X 10^3 (1.0-4.0); LYMPHOCYTES % (AUTO) 37 % (12-44); MEAN CORPUSCULAR HEMOGLOBIN 32 PG (25-34); MEAN CORPUSCULAR HGB CONC 35 G/DL (32-36); MEAN CORPUSCULAR VOLUME 91 FL (80-99); MEAN PLATELET VOLUME 8.7 FL (7.4-10.4); MONOCYTES # (AUTO) 0.6 X 10^3 (0.0-1.0); MONOCYTES % (AUTO) 16 % (0-12); NEUTROPHILS # (AUTO) 1.6 X 10^3 (1.8-7.8); NEUTROPHILS % (AUTO) 46 % (42-75); PLATELET COUNT 122 10^3/uL (130-400); RED BLOOD COUNT 4.21 10^6/uL (4.35-5.85); RED CELL DISTRIBUTION WIDTH 15.2 % (10.0-14.5); WHITE BLOOD COUNT 3.6 10^3/uL (4.3-11.0)
[2018-01-19 09:45] LABS: ALANINE AMINOTRANSFERASE 9 U/L (0-55); ALBUMIN 4.1 GM/DL (3.2-4.5); ALKALINE PHOSPHATASE 86 U/L (40-136); BILIRUBIN,TOTAL 0.7 MG/DL (0.1-1.0); BUN/CREATININE RATIO 12; CALCIUM 11.1 MG/DL (8.5-10.1); CARBON DIOXIDE 24 MMOL/L (21-32); CHLORIDE 107 MMOL/L (98-107); CREATININE SERUM 0.69 MG/DL (0.60-1.30); GFR ESTIMATED > 60; POTASSIUM 3.9 MMOL/L (3.6-5.0); SODIUM 138 MMOL/L (135-145); TOTAL PROTEIN 6.5 GM/DL (6.4-8.2)
[2018-01-19 09:49] LABS: GLUCOSE 59 MG/DL (70-105)
[~2018-02-19 09:40] MED LIST changes: +ZOLEDRONIC ACID (CANCER CTR) 4 MG in NS (IVPB) CANCER CENTER 100 ML IV NR
[2018-02-19 10:07] LABS: BASOPHILS % (AUTO) 0 % (0-10); EOSINOPHILS # (AUTO) 0.1 10^3/uL (0.0-0.3); EOSINOPHILS % (AUTO) 3 % (0-10); HEMATOCRIT 38 % (40-54); HEMOGLOBIN 13.9 G/DL (13.3-17.7); LYMPHOCYTES % (AUTO) 32 % (12-44); MEAN CORPUSCULAR HEMOGLOBIN 33 PG (25-34); MEAN CORPUSCULAR HGB CONC 36 G/DL (32-36); MEAN CORPUSCULAR VOLUME 91 FL (80-99); MEAN PLATELET VOLUME 9.3 FL (7.4-10.4); MONOCYTES # (AUTO) 0.4 X 10^3 (0.0-1.0); MONOCYTES % (AUTO) 13 % (0-12); NEUTROPHILS # (AUTO) 1.7 X 10^3 (1.8-7.8); NEUTROPHILS % (AUTO) 53 % (42-75); PLATELET COUNT 135 10^3/uL (130-400); RED BLOOD COUNT 4.23 10^6/uL (4.35-5.85); WHITE BLOOD COUNT 3.2 10^3/uL (4.3-11.0)
[2018-02-19 10:24] LABS: ALANINE AMINOTRANSFERASE 11 U/L (0-55); ALBUMIN 4.3 GM/DL (3.2-4.5); ALKALINE PHOSPHATASE 81 U/L (40-136); BILIRUBIN,TOTAL 0.8 MG/DL (0.1-1.0); BUN/CREATININE RATIO 15; CALCIUM 10.8 MG/DL (8.5-10.1); CARBON DIOXIDE 23 MMOL/L (21-32); CHLORIDE 108 MMOL/L (98-107); CREATININE SERUM 0.67 MG/DL (0.60-1.30); GFR ESTIMATED > 60; GLUCOSE 94 MG/DL (70-105); POTASSIUM 3.8 MMOL/L (3.6-5.0); SODIUM 137 MMOL/L (135-145); TOTAL PROTEIN 6.7 GM/DL (6.4-8.2)
== END 2018-03-11 | disposition home or self-care (01) ==
LOC: ONC 09:40
PROVIDERS: ATTEND Internal Medicine Hematology & Oncology
DX: C90.00 Multiple myeloma not having achieved remission (principal); I48.91 Unspecified atrial fibrillation; E83.52 Hypercalcemia; M89.9 Disorder of bone, unspecified; D64.9 Anemia, unspecified; K21.9 Gastro-esophageal reflux disease without esophagitis; D70.9 Neutropenia, unspecified; D69.6 Thrombocytopenia, unspecified; Z79.899 Other long term (current) drug therapy
CPT/HCPCS: 36415; 80053; 82306; 82784; 83883; 83970; 84100; 84155; 84165; 85025; 96365; 99213

== ENCOUNTER 2018-05-25 08:25 | Outpatient (RCR) | payer MEDICARE, OTHER ==
[2018-03-16 09:35] LABS: BASOPHILS % (AUTO) 0 % (0-10); EOSINOPHILS # (AUTO) 0.1 10^3/uL (0.0-0.3); EOSINOPHILS % (AUTO) 3 % (0-10); HEMATOCRIT 38 % (40-54); HEMOGLOBIN 13.6 G/DL (13.3-17.7); LYMPHOCYTES # (AUTO) 0.9 X 10^3 (1.0-4.0); LYMPHOCYTES % (AUTO) 27 % (12-44); MEAN CORPUSCULAR HEMOGLOBIN 32 PG (25-34); MEAN CORPUSCULAR HGB CONC 35 G/DL (32-36); MEAN CORPUSCULAR VOLUME 89 FL (80-99); MEAN PLATELET VOLUME 9.1 FL (7.4-10.4); MONOCYTES # (AUTO) 0.4 X 10^3 (0.0-1.0); MONOCYTES % (AUTO) 14 % (0-12); NEUTROPHILS # (AUTO) 1.8 X 10^3 (1.8-7.8); NEUTROPHILS % (AUTO) 57 % (42-75); PLATELET COUNT 129 10^3/uL (130-400); RED BLOOD COUNT 4.31 10^6/uL (4.35-5.85); RED CELL DISTRIBUTION WIDTH 13.1 % (10.0-14.5); WHITE BLOOD COUNT 3.2 10^3/uL (4.3-11.0)
[2018-03-16 10:09] LABS: ALANINE AMINOTRANSFERASE 13 U/L (0-55); ALBUMIN 4.3 GM/DL (3.2-4.5); ALKALINE PHOSPHATASE 78 U/L (40-136); BILIRUBIN,TOTAL 0.6 MG/DL (0.1-1.0); BUN/CREATININE RATIO 15; CALCIUM 10.8 MG/DL (8.5-10.1); CARBON DIOXIDE 22 MMOL/L (21-32); CHLORIDE 110 MMOL/L (98-107); CREATININE SERUM 0.72 MG/DL (0.60-1.30); GFR ESTIMATED > 60; GLUCOSE 91 MG/DL (70-105); POTASSIUM 3.9 MMOL/L (3.6-5.0); SODIUM 139 MMOL/L (135-145); TOTAL PROTEIN 6.7 GM/DL (6.4-8.2)
[2018-04-13 09:26] LABS: BASOPHILS % (AUTO) 0 % (0-10); EOSINOPHILS # (AUTO) 0.1 10^3/uL (0.0-0.3); EOSINOPHILS % (AUTO) 2 % (0-10); HEMATOCRIT 36 % (40-54); HEMOGLOBIN 12.4 G/DL (13.3-17.7); LYMPHOCYTES # (AUTO) 0.9 X 10^3 (1.0-4.0); LYMPHOCYTES % (AUTO) 20 % (12-44); MEAN CORPUSCULAR HEMOGLOBIN 31 PG (25-34); MEAN CORPUSCULAR HGB CONC 34 G/DL (32-36); MEAN CORPUSCULAR VOLUME 90 FL (80-99); MEAN PLATELET VOLUME 8.5 FL (7.4-10.4); MONOCYTES # (AUTO) 0.6 X 10^3 (0.0-1.0); MONOCYTES % (AUTO) 13 % (0-12); NEUTROPHILS % (AUTO) 65 % (42-75); PLATELET COUNT 181 10^3/uL (130-400); RED BLOOD COUNT 4.03 10^6/uL (4.35-5.85); RED CELL DISTRIBUTION WIDTH 15.1 % (10.0-14.5); WHITE BLOOD COUNT 4.6 10^3/uL (4.3-11.0)
[2018-04-13 09:45] LABS: ALANINE AMINOTRANSFERASE 12 U/L (0-55); ALBUMIN 3.9 GM/DL (3.2-4.5); ALKALINE PHOSPHATASE 80 U/L (40-136); BILIRUBIN,TOTAL 0.7 MG/DL (0.1-1.0); BUN/CREATININE RATIO 21; CALCIUM 8.9 MG/DL (8.5-10.1); CARBON DIOXIDE 24 MMOL/L (21-32); CHLORIDE 107 MMOL/L (98-107); CREATININE SERUM 0.66 MG/DL (0.60-1.30); GFR ESTIMATED > 60; GLUCOSE 95 MG/DL (70-105); POTASSIUM 3.9 MMOL/L (3.6-5.0); SODIUM 139 MMOL/L (135-145); TOTAL PROTEIN 6.1 GM/DL (6.4-8.2)
[2018-04-28 09:03] LABS: BASOPHILS % (AUTO) 0 % (0-10); EOSINOPHILS % (AUTO) 1 % (0-10); HEMATOCRIT 37 % (40-54); HEMOGLOBIN 12.8 G/DL (13.3-17.7); LYMPHOCYTES # (AUTO) 0.5 X 10^3 (1.0-4.0); LYMPHOCYTES % (AUTO) 6 % (12-44); MEAN CORPUSCULAR HEMOGLOBIN 31 PG (25-34); MEAN CORPUSCULAR HGB CONC 35 G/DL (32-36); MEAN CORPUSCULAR VOLUME 90 FL (80-99); MEAN PLATELET VOLUME 9.9 FL (7.4-10.4); MONOCYTES # (AUTO) 0.2 X 10^3 (0.0-1.0); MONOCYTES % (AUTO) 2 % (0-12); NEUTROPHILS # (AUTO) 7.9 X 10^3 (1.8-7.8); NEUTROPHILS % (AUTO) 92 % (42-75); PLATELET COUNT 131 10^3/uL (130-400); RED BLOOD COUNT 4.07 10^6/uL (4.35-5.85); RED CELL DISTRIBUTION WIDTH 15.6 % (10.0-14.5); WHITE BLOOD COUNT 8.6 10^3/uL (4.3-11.0)
[2018-04-28 09:29] LABS: ALANINE AMINOTRANSFERASE 20 U/L (0-55); ALBUMIN 4.1 GM/DL (3.2-4.5); ALKALINE PHOSPHATASE 60 U/L (40-136); BILIRUBIN,TOTAL 0.7 MG/DL (0.1-1.0); BUN/CREATININE RATIO 16; CALCIUM 9.2 MG/DL (8.5-10.1); CARBON DIOXIDE 24 MMOL/L (21-32); CHLORIDE 107 MMOL/L (98-107); CREATININE SERUM 0.73 MG/DL (0.60-1.30); GFR ESTIMATED > 60; GLUCOSE 99 MG/DL (70-105); POTASSIUM 4.4 MMOL/L (3.6-5.0); SODIUM 137 MMOL/L (135-145); TOTAL PROTEIN 6.6 GM/DL (6.4-8.2)
[2018-05-11 15:05] LABS: BASOPHILS % (AUTO) 0 % (0-10); EOSINOPHILS % (AUTO) 0 % (0-10); HEMATOCRIT 36 % (40-54); HEMOGLOBIN 12.3 G/DL (13.3-17.7); LYMPHOCYTES # (AUTO) 0.4 X 10^3 (1.0-4.0); LYMPHOCYTES % (AUTO) 8 % (12-44); MEAN CORPUSCULAR HEMOGLOBIN 31 PG (25-34); MEAN CORPUSCULAR HGB CONC 35 G/DL (32-36); MEAN CORPUSCULAR VOLUME 90 FL (80-99); MONOCYTES # (AUTO) 0.1 X 10^3 (0.0-1.0); MONOCYTES % (AUTO) 2 % (0-12); NEUTROPHILS # (AUTO) 3.8 X 10^3 (1.8-7.8); NEUTROPHILS % (AUTO) 90 % (42-75); PLATELET COUNT 118 10^3/uL (130-400); RED BLOOD COUNT 3.97 10^6/uL (4.35-5.85); WHITE BLOOD COUNT 4.2 10^3/uL (4.3-11.0)
[2018-05-11 15:34] LABS: ALANINE AMINOTRANSFERASE 22 U/L (0-55); ALBUMIN 4.2 GM/DL (3.2-4.5); ALKALINE PHOSPHATASE 60 U/L (40-136); BILIRUBIN,TOTAL 0.6 MG/DL (0.1-1.0); BUN/CREATININE RATIO 15; CALCIUM 8.6 MG/DL (8.5-10.1); CARBON DIOXIDE 18 MMOL/L (21-32); CHLORIDE 109 MMOL/L (98-107); CREATININE SERUM 0.78 MG/DL (0.60-1.30); GFR ESTIMATED > 60; GLUCOSE 178 MG/DL (70-105); SODIUM 137 MMOL/L (135-145); TOTAL PROTEIN 6.3 GM/DL (6.4-8.2)
[2018-05-18 09:12] LABS: BASOPHILS % (AUTO) 0 % (0-10); EOSINOPHILS # (AUTO) 0.1 10^3/uL (0.0-0.3); EOSINOPHILS % (AUTO) 2 % (0-10); HEMATOCRIT 34 % (40-54); HEMOGLOBIN 11.7 G/DL (13.3-17.7); LYMPHOCYTES # (AUTO) 0.5 X 10^3 (1.0-4.0); LYMPHOCYTES % (AUTO) 11 % (12-44); MEAN CORPUSCULAR HEMOGLOBIN 32 PG (25-34); MEAN CORPUSCULAR HGB CONC 35 G/DL (32-36); MEAN CORPUSCULAR VOLUME 91 FL (80-99); MEAN PLATELET VOLUME 11.2 FL (7.4-10.4); MONOCYTES # (AUTO) 0.1 X 10^3 (0.0-1.0); MONOCYTES % (AUTO) 2 % (0-12); NEUTROPHILS # (AUTO) 3.5 X 10^3 (1.8-7.8); NEUTROPHILS % (AUTO) 84 % (42-75); PLATELET COUNT 74 10^3/uL (130-400); RED CELL DISTRIBUTION WIDTH 16.3 % (10.0-14.5); WHITE BLOOD COUNT 4.2 10^3/uL (4.3-11.0)
[2018-05-18 09:36] LABS: ALANINE AMINOTRANSFERASE 19 U/L (0-55); ALBUMIN 3.7 GM/DL (3.2-4.5); ALKALINE PHOSPHATASE 55 U/L (40-136); BILIRUBIN,TOTAL 0.7 MG/DL (0.1-1.0); BUN/CREATININE RATIO 15; CALCIUM 8.1 MG/DL (8.5-10.1); CARBON DIOXIDE 23 MMOL/L (21-32); CHLORIDE 109 MMOL/L (98-107); CREATININE SERUM 0.65 MG/DL (0.60-1.30); GFR ESTIMATED > 60; GLUCOSE 100 MG/DL (70-105); POTASSIUM 3.6 MMOL/L (3.6-5.0); SODIUM 139 MMOL/L (135-145); TOTAL PROTEIN 5.5 GM/DL (6.4-8.2)
[~2018-05-25] VITALS: Ht 172.7 cm; Wt 80.3 kg
[~2018-05-25 08:25] MED LIST changes: +BORTEZOMIB 3.5 MG VELCADE SC SCH; -ZOLEDRONIC ACID (CANCER CTR) 4 MG in NS (IVPB) CANCER CENTER 100 ML IV NR; +ZOLEDRONIC ACID (CANCER CTR) 4 MG in NS (IVPB) CANCER CENTER 100 ML IV SCH
[2018-05-25 08:51] LABS: BASOPHILS % (AUTO) 0 % (0-10); EOSINOPHILS # (AUTO) 0.1 10^3/uL (0.0-0.3); EOSINOPHILS % (AUTO) 2 % (0-10); HEMATOCRIT 32 % (40-54); HEMOGLOBIN 10.9 G/DL (13.3-17.7); LYMPHOCYTES # (AUTO) 0.4 X 10^3 (1.0-4.0); LYMPHOCYTES % (AUTO) 11 % (12-44); MEAN CORPUSCULAR HEMOGLOBIN 30 PG (25-34); MEAN CORPUSCULAR HGB CONC 34 G/DL (32-36); MEAN CORPUSCULAR VOLUME 90 FL (80-99); MEAN PLATELET VOLUME 10.2 FL (7.4-10.4); MONOCYTES # (AUTO) 0.2 X 10^3 (0.0-1.0); MONOCYTES % (AUTO) 5 % (0-12); NEUTROPHILS # (AUTO) 3.2 X 10^3 (1.8-7.8); NEUTROPHILS % (AUTO) 82 % (42-75); PLATELET COUNT 75 10^3/uL (130-400); RED CELL DISTRIBUTION WIDTH 16.1 % (10.0-14.5); WHITE BLOOD COUNT 3.9 10^3/uL (4.3-11.0)
[2018-05-25 09:09] LABS: ALANINE AMINOTRANSFERASE 15 U/L (0-55); ALBUMIN 3.7 GM/DL (3.2-4.5); ALKALINE PHOSPHATASE 48 U/L (40-136); BILIRUBIN,TOTAL 0.7 MG/DL (0.1-1.0); BUN/CREATININE RATIO 16; CALCIUM 8.6 MG/DL (8.5-10.1); CARBON DIOXIDE 25 MMOL/L (21-32); CHLORIDE 107 MMOL/L (98-107); CREATININE SERUM 0.67 MG/DL (0.60-1.30); GFR ESTIMATED > 60; GLUCOSE 97 MG/DL (70-105); POTASSIUM 3.8 MMOL/L (3.6-5.0); SODIUM 139 MMOL/L (135-145); TOTAL PROTEIN 5.3 GM/DL (6.4-8.2)
[2018-06-01 09:25] LABS: BASOPHILS % (AUTO) 0 % (0-10); EOSINOPHILS % (AUTO) 1 % (0-10); HEMATOCRIT 35 % (40-54); LYMPHOCYTES # (AUTO) 0.4 X 10^3 (1.0-4.0); LYMPHOCYTES % (AUTO) 13 % (12-44); MEAN CORPUSCULAR HEMOGLOBIN 31 PG (25-34); MEAN CORPUSCULAR HGB CONC 35 G/DL (32-36); MEAN CORPUSCULAR VOLUME 90 FL (80-99); MEAN PLATELET VOLUME 9.3 FL (7.4-10.4); MONOCYTES # (AUTO) 0.1 X 10^3 (0.0-1.0); MONOCYTES % (AUTO) 4 % (0-12); NEUTROPHILS # (AUTO) 2.7 X 10^3 (1.8-7.8); NEUTROPHILS % (AUTO) 83 % (42-75); PLATELET COUNT 85 10^3/uL (130-400); RED BLOOD COUNT 3.85 10^6/uL (4.35-5.85); RED CELL DISTRIBUTION WIDTH 16.3 % (10.0-14.5); WHITE BLOOD COUNT 3.3 10^3/uL (4.3-11.0)
[2018-06-01 09:47] LABS: ALANINE AMINOTRANSFERASE 18 U/L (0-55); ALBUMIN 4.1 GM/DL (3.2-4.5); ALKALINE PHOSPHATASE 58 U/L (40-136); BILIRUBIN,TOTAL 0.7 MG/DL (0.1-1.0); BUN/CREATININE RATIO 15; CALCIUM 8.7 MG/DL (8.5-10.1); CARBON DIOXIDE 23 MMOL/L (21-32); CHLORIDE 108 MMOL/L (98-107); CREATININE SERUM 0.68 MG/DL (0.60-1.30); GFR ESTIMATED > 60; GLUCOSE 101 MG/DL (70-105); SODIUM 138 MMOL/L (135-145); TOTAL PROTEIN 5.8 GM/DL (6.4-8.2)
== END 2018-06-01 09:05 | disposition home or self-care (01) ==
LOC: ONC 08:25
PROVIDERS: ATTEND Internal Medicine Hematology & Oncology
DX: C90.00 Multiple myeloma not having achieved remission (principal); I48.91 Unspecified atrial fibrillation; E83.52 Hypercalcemia; M89.9 Disorder of bone, unspecified; D64.9 Anemia, unspecified; K21.9 Gastro-esophageal reflux disease without esophagitis; D70.9 Neutropenia, unspecified; D69.6 Thrombocytopenia, unspecified; Z79.899 Other long term (current) drug therapy
CPT/HCPCS: 36415; 80053; 82728; 82784; 83540; 83883; 83970; 85025; 96365; 96401; 96402

== ENCOUNTER → 2018-06-25 | Outpatient (CLI) | payer MEDICARE, OTHER ==
[~2018-06-25] MED LIST changes: -BORTEZOMIB 3.5 MG VELCADE SC SCH; -ZOLEDRONIC ACID (CANCER CTR) 4 MG in NS (IVPB) CANCER CENTER 100 ML IV SCH
== END ==
LOC: CARD 08:33
PROVIDERS: ATTEND Internal Medicine Hematology & Oncology
DX: Z51.81 Encounter for therapeutic drug level monitoring (principal); C90.00 Multiple myeloma not having achieved remission; Z79.899 Other long term (current) drug therapy
CPT/HCPCS: 93306

== ENCOUNTER 2018-08-25 09:44 | Outpatient (RCR) | payer MEDICARE, OTHER ==
[2018-06-08 08:48] LABS: BASOPHILS % (AUTO) 0 % (0-10); EOSINOPHILS # (AUTO) 0.2 10^3/uL (0.0-0.3); EOSINOPHILS % (AUTO) 3 % (0-10); HEMATOCRIT 36 % (40-54); HEMOGLOBIN 12.2 G/DL (13.3-17.7); LYMPHOCYTES # (AUTO) 0.5 X 10^3 (1.0-4.0); LYMPHOCYTES % (AUTO) 9 % (12-44); MEAN CORPUSCULAR HEMOGLOBIN 31 PG (25-34); MEAN CORPUSCULAR HGB CONC 34 G/DL (32-36); MEAN CORPUSCULAR VOLUME 89 FL (80-99); MEAN PLATELET VOLUME 9.2 FL (7.4-10.4); MONOCYTES # (AUTO) 0.3 X 10^3 (0.0-1.0); MONOCYTES % (AUTO) 5 % (0-12); NEUTROPHILS % (AUTO) 83 % (42-75); PLATELET COUNT 108 10^3/uL (130-400); RED BLOOD COUNT 3.97 10^6/uL (4.35-5.85); RED CELL DISTRIBUTION WIDTH 16.7 % (10.0-14.5)
[2018-06-08 09:11] LABS: ALANINE AMINOTRANSFERASE 15 U/L (0-55); ALBUMIN 3.8 GM/DL (3.2-4.5); ALKALINE PHOSPHATASE 58 U/L (40-136); BILIRUBIN,TOTAL 0.9 MG/DL (0.1-1.0); BUN/CREATININE RATIO 14; CALCIUM 8.7 MG/DL (8.5-10.1); CARBON DIOXIDE 24 MMOL/L (21-32); CHLORIDE 105 MMOL/L (98-107); CREATININE SERUM 0.71 MG/DL (0.60-1.30); GFR ESTIMATED > 60; GLUCOSE 111 MG/DL (70-105); POTASSIUM 3.7 MMOL/L (3.6-5.0); SODIUM 137 MMOL/L (135-145); TOTAL PROTEIN 5.7 GM/DL (6.4-8.2)
[2018-06-22 08:29] LABS: BASOPHILS % (AUTO) 1 % (0-10); EOSINOPHILS # (AUTO) 0.1 10^3/uL (0.0-0.3); EOSINOPHILS % (AUTO) 4 % (0-10); HEMATOCRIT 34 % (40-54); HEMOGLOBIN 11.5 G/DL (13.3-17.7); LYMPHOCYTES # (AUTO) 0.5 X 10^3 (1.0-4.0); LYMPHOCYTES % (AUTO) 16 % (12-44); MEAN CORPUSCULAR HEMOGLOBIN 31 PG (25-34); MEAN CORPUSCULAR HGB CONC 34 G/DL (32-36); MEAN CORPUSCULAR VOLUME 90 FL (80-99); MEAN PLATELET VOLUME 8.5 FL (7.4-10.4); MONOCYTES # (AUTO) 0.4 X 10^3 (0.0-1.0); MONOCYTES % (AUTO) 11 % (0-12); NEUTROPHILS # (AUTO) 2.4 X 10^3 (1.8-7.8); NEUTROPHILS % (AUTO) 69 % (42-75); PLATELET COUNT 105 10^3/uL (130-400); RED BLOOD COUNT 3.74 10^6/uL (4.35-5.85); RED CELL DISTRIBUTION WIDTH 16.7 % (10.0-14.5); WHITE BLOOD COUNT 3.4 10^3/uL (4.3-11.0)
[2018-06-22 08:47] LABS: ALANINE AMINOTRANSFERASE 14 U/L (0-55); ALBUMIN 3.7 GM/DL (3.2-4.5); ALKALINE PHOSPHATASE 57 U/L (40-136); BILIRUBIN,TOTAL 0.7 MG/DL (0.1-1.0); BUN/CREATININE RATIO 16; CALCIUM 8.9 MG/DL (8.5-10.1); CARBON DIOXIDE 27 MMOL/L (21-32); CHLORIDE 107 MMOL/L (98-107); GFR ESTIMATED > 60; GLUCOSE 96 MG/DL (70-105); POTASSIUM 3.8 MMOL/L (3.6-5.0); SODIUM 140 MMOL/L (135-145); TOTAL PROTEIN 5.3 GM/DL (6.4-8.2)
[2018-06-29 13:09] LABS: BASOPHILS % (AUTO) 0 % (0-10); EOSINOPHILS % (AUTO) 0 % (0-10); HEMATOCRIT 37 % (40-54); HEMOGLOBIN 13.1 G/DL (13.3-17.7); LYMPHOCYTES # (AUTO) 0.3 X 10^3 (1.0-4.0); LYMPHOCYTES % (AUTO) 6 % (12-44); MEAN CORPUSCULAR HEMOGLOBIN 31 PG (25-34); MEAN CORPUSCULAR HGB CONC 35 G/DL (32-36); MEAN CORPUSCULAR VOLUME 89 FL (80-99); MEAN PLATELET VOLUME 9.6 FL (7.4-10.4); MONOCYTES % (AUTO) 0 % (0-12); NEUTROPHILS # (AUTO) 3.6 X 10^3 (1.8-7.8); NEUTROPHILS % (AUTO) 93 % (42-75); PLATELET COUNT 122 10^3/uL (130-400); RED BLOOD COUNT 4.17 10^6/uL (4.35-5.85); RED CELL DISTRIBUTION WIDTH 16.6 % (10.0-14.5); WHITE BLOOD COUNT 3.9 10^3/uL (4.3-11.0)
[2018-06-29 13:30] LABS: ALANINE AMINOTRANSFERASE 16 U/L (0-55); ALBUMIN 4.1 GM/DL (3.2-4.5); ALKALINE PHOSPHATASE 59 U/L (40-136); BILIRUBIN,TOTAL 0.8 MG/DL (0.1-1.0); BUN/CREATININE RATIO 12; CALCIUM 9.2 MG/DL (8.5-10.1); CARBON DIOXIDE 21 MMOL/L (21-32); CHLORIDE 106 MMOL/L (98-107); CREATININE SERUM 0.76 MG/DL (0.60-1.30); GFR ESTIMATED > 60; GLUCOSE 215 MG/DL (70-105); POTASSIUM 3.6 MMOL/L (3.6-5.0); SODIUM 138 MMOL/L (135-145); TOTAL PROTEIN 6.1 GM/DL (6.4-8.2)
[2018-07-06 09:00] LABS: BASOPHILS % (AUTO) 0 % (0-10); EOSINOPHILS # (AUTO) 0.1 10^3/uL (0.0-0.3); EOSINOPHILS % (AUTO) 2 % (0-10); HEMATOCRIT 36 % (40-54); HEMOGLOBIN 12.4 G/DL (13.3-17.7); LYMPHOCYTES # (AUTO) 0.4 X 10^3 (1.0-4.0); LYMPHOCYTES % (AUTO) 7 % (12-44); MEAN CORPUSCULAR HEMOGLOBIN 31 PG (25-34); MEAN CORPUSCULAR HGB CONC 35 G/DL (32-36); MEAN CORPUSCULAR VOLUME 90 FL (80-99); MEAN PLATELET VOLUME 9.3 FL (7.4-10.4); MONOCYTES # (AUTO) 0.3 X 10^3 (0.0-1.0); MONOCYTES % (AUTO) 5 % (0-12); NEUTROPHILS # (AUTO) 5.1 X 10^3 (1.8-7.8); NEUTROPHILS % (AUTO) 85 % (42-75); PLATELET COUNT 89 10^3/uL (130-400); RED BLOOD COUNT 3.97 10^6/uL (4.35-5.85); RED CELL DISTRIBUTION WIDTH 16.8 % (10.0-14.5)
[2018-07-06 09:19] LABS: ALANINE AMINOTRANSFERASE 16 U/L (0-55); ALBUMIN 3.7 GM/DL (3.2-4.5); ALKALINE PHOSPHATASE 50 U/L (40-136); BILIRUBIN,TOTAL 0.9 MG/DL (0.1-1.0); BUN/CREATININE RATIO 17; CALCIUM 8.6 MG/DL (8.5-10.1); CARBON DIOXIDE 24 MMOL/L (21-32); CHLORIDE 107 MMOL/L (98-107); CREATININE SERUM 0.66 MG/DL (0.60-1.30); GFR ESTIMATED > 60; GLUCOSE 115 MG/DL (70-105); POTASSIUM 3.8 MMOL/L (3.6-5.0); SODIUM 138 MMOL/L (135-145); TOTAL PROTEIN 5.5 GM/DL (6.4-8.2)
[2018-07-13 09:10] LABS: BASOPHILS % (AUTO) 0 % (0-10); EOSINOPHILS # (AUTO) 0.1 10^3/uL (0.0-0.3); EOSINOPHILS % (AUTO) 2 % (0-10); HEMATOCRIT 37 % (40-54); HEMOGLOBIN 12.7 G/DL (13.3-17.7); LYMPHOCYTES # (AUTO) 0.4 X 10^3 (1.0-4.0); LYMPHOCYTES % (AUTO) 9 % (12-44); MEAN CORPUSCULAR HEMOGLOBIN 32 PG (25-34); MEAN CORPUSCULAR HGB CONC 35 G/DL (32-36); MEAN CORPUSCULAR VOLUME 91 FL (80-99); MONOCYTES # (AUTO) 0.2 X 10^3 (0.0-1.0); MONOCYTES % (AUTO) 5 % (0-12); NEUTROPHILS # (AUTO) 4.1 X 10^3 (1.8-7.8); NEUTROPHILS % (AUTO) 84 % (42-75); PLATELET COUNT 80 10^3/uL (130-400); RED BLOOD COUNT 4.03 10^6/uL (4.35-5.85); RED CELL DISTRIBUTION WIDTH 17.3 % (10.0-14.5); WHITE BLOOD COUNT 4.9 10^3/uL (4.3-11.0)
[2018-07-13 09:27] LABS: ALANINE AMINOTRANSFERASE 19 U/L (0-55); ALBUMIN 3.9 GM/DL (3.2-4.5); ALKALINE PHOSPHATASE 59 U/L (40-136); BILIRUBIN,TOTAL 0.9 MG/DL (0.1-1.0); BUN/CREATININE RATIO 15; CALCIUM 8.5 MG/DL (8.5-10.1); CARBON DIOXIDE 22 MMOL/L (21-32); CHLORIDE 107 MMOL/L (98-107); CREATININE SERUM 0.66 MG/DL (0.60-1.30); GFR ESTIMATED > 60; GLUCOSE 107 MG/DL (70-105); POTASSIUM 3.8 MMOL/L (3.6-5.0); SODIUM 138 MMOL/L (135-145); TOTAL PROTEIN 5.6 GM/DL (6.4-8.2)
[2018-07-20 08:46] LABS: BASOPHILS % (AUTO) 0 % (0-10); EOSINOPHILS # (AUTO) 0.1 10^3/uL (0.0-0.3); EOSINOPHILS % (AUTO) 2 % (0-10); HEMATOCRIT 34 % (40-54); HEMOGLOBIN 11.7 G/DL (13.3-17.7); LYMPHOCYTES # (AUTO) 0.4 X 10^3 (1.0-4.0); LYMPHOCYTES % (AUTO) 11 % (12-44); MEAN CORPUSCULAR HEMOGLOBIN 32 PG (25-34); MEAN CORPUSCULAR HGB CONC 35 G/DL (32-36); MEAN CORPUSCULAR VOLUME 92 FL (80-99); MEAN PLATELET VOLUME 9.3 FL (7.4-10.4); MONOCYTES # (AUTO) 0.3 X 10^3 (0.0-1.0); MONOCYTES % (AUTO) 9 % (0-12); NEUTROPHILS # (AUTO) 2.5 X 10^3 (1.8-7.8); NEUTROPHILS % (AUTO) 79 % (42-75); PLATELET COUNT 86 10^3/uL (130-400); RED BLOOD COUNT 3.68 10^6/uL (4.35-5.85); RED CELL DISTRIBUTION WIDTH 17.2 % (10.0-14.5); WHITE BLOOD COUNT 3.2 10^3/uL (4.3-11.0)
[2018-07-20 09:10] LABS: ALANINE AMINOTRANSFERASE 19 U/L (0-55); ALBUMIN 3.7 GM/DL (3.2-4.5); ALKALINE PHOSPHATASE 53 U/L (40-136); BILIRUBIN,TOTAL 0.7 MG/DL (0.1-1.0); BUN/CREATININE RATIO 16; CALCIUM 8.7 MG/DL (8.5-10.1); CARBON DIOXIDE 27 MMOL/L (21-32); CHLORIDE 106 MMOL/L (98-107); CREATININE SERUM 0.64 MG/DL (0.60-1.30); GFR ESTIMATED > 60; GLUCOSE 75 MG/DL (70-105); POTASSIUM 3.8 MMOL/L (3.6-5.0); SODIUM 139 MMOL/L (135-145); TOTAL PROTEIN 5.3 GM/DL (6.4-8.2)
[2018-07-28 10:08] LABS: ALANINE AMINOTRANSFERASE 19 U/L (0-55); ALBUMIN 3.9 GM/DL (3.2-4.5); ALKALINE PHOSPHATASE 62 U/L (40-136); BILIRUBIN,TOTAL 0.8 MG/DL (0.1-1.0); BUN/CREATININE RATIO 14; CARBON DIOXIDE 22 MMOL/L (21-32); CHLORIDE 109 MMOL/L (98-107); CREATININE SERUM 0.76 MG/DL (0.60-1.30); GFR ESTIMATED > 60; GLUCOSE 123 MG/DL (70-105); POTASSIUM 3.9 MMOL/L (3.6-5.0); SODIUM 140 MMOL/L (135-145); TOTAL PROTEIN 5.8 GM/DL (6.4-8.2)
[2018-07-28 10:35] LABS: BASOPHILS % (AUTO) 0 % (0-10); EOSINOPHILS % (AUTO) 1 % (0-10); HEMATOCRIT 35 % (40-54); HEMOGLOBIN 12.2 G/DL (13.3-17.7); LYMPHOCYTES # (AUTO) 0.5 X 10^3 (1.0-4.0); LYMPHOCYTES % (AUTO) 8 % (12-44); MEAN CORPUSCULAR HEMOGLOBIN 32 PG (25-34); MEAN CORPUSCULAR HGB CONC 35 G/DL (32-36); MEAN CORPUSCULAR VOLUME 91 FL (80-99); MEAN PLATELET VOLUME 8.5 FL (7.4-10.4); MONOCYTES # (AUTO) 0.1 X 10^3 (0.0-1.0); MONOCYTES % (AUTO) 2 % (0-12); NEUTROPHILS # (AUTO) 4.9 X 10^3 (1.8-7.8); NEUTROPHILS % (AUTO) 89 % (42-75); PLATELET COUNT 105 10^3/uL (130-400); RED BLOOD COUNT 3.84 10^6/uL (4.35-5.85); RED CELL DISTRIBUTION WIDTH 17.4 % (10.0-14.5); WHITE BLOOD COUNT 5.5 10^3/uL (4.3-11.0)
[2018-08-04 09:07] LABS: BASOPHILS % (AUTO) 0 % (0-10); EOSINOPHILS % (AUTO) 0 % (0-10); HEMATOCRIT 33 % (40-54); HEMOGLOBIN 11.3 G/DL (13.3-17.7); LYMPHOCYTES # (AUTO) 0.6 X 10^3 (1.0-4.0); LYMPHOCYTES % (AUTO) 8 % (12-44); MEAN CORPUSCULAR HEMOGLOBIN 32 PG (25-34); MEAN CORPUSCULAR HGB CONC 35 G/DL (32-36); MEAN CORPUSCULAR VOLUME 92 FL (80-99); MEAN PLATELET VOLUME 9.6 FL (7.4-10.4); MONOCYTES # (AUTO) 0.5 X 10^3 (0.0-1.0); MONOCYTES % (AUTO) 6 % (0-12); NEUTROPHILS # (AUTO) 6.6 X 10^3 (1.8-7.8); NEUTROPHILS % (AUTO) 86 % (42-75); PLATELET COUNT 103 10^3/uL (130-400); RED BLOOD COUNT 3.57 10^6/uL (4.35-5.85); RED CELL DISTRIBUTION WIDTH 17.5 % (10.0-14.5); WHITE BLOOD COUNT 7.7 10^3/uL (4.3-11.0)
[2018-08-04 09:24] LABS: BUN/CREATININE RATIO 29; CALCIUM 8.9 MG/DL (8.5-10.1); CARBON DIOXIDE 21 MMOL/L (21-32); CHLORIDE 108 MMOL/L (98-107); CREATININE SERUM 0.72 MG/DL (0.60-1.30); GFR ESTIMATED > 60; GLUCOSE 137 MG/DL (70-105); POTASSIUM 3.9 MMOL/L (3.6-5.0); SODIUM 139 MMOL/L (135-145)
[2018-08-10 09:15] LABS: BASOPHILS % (AUTO) 0 % (0-10); EOSINOPHILS # (AUTO) 0.1 10^3/uL (0.0-0.3); EOSINOPHILS % (AUTO) 1 % (0-10); HEMATOCRIT 35 % (40-54); HEMOGLOBIN 12.2 G/DL (13.3-17.7); LYMPHOCYTES # (AUTO) 0.5 X 10^3 (1.0-4.0); LYMPHOCYTES % (AUTO) 7 % (12-44); MEAN CORPUSCULAR HEMOGLOBIN 32 PG (25-34); MEAN CORPUSCULAR HGB CONC 35 G/DL (32-36); MEAN CORPUSCULAR VOLUME 92 FL (80-99); MEAN PLATELET VOLUME 9.5 FL (7.4-10.4); MONOCYTES # (AUTO) 0.3 X 10^3 (0.0-1.0); MONOCYTES % (AUTO) 5 % (0-12); NEUTROPHILS # (AUTO) 5.6 X 10^3 (1.8-7.8); NEUTROPHILS % (AUTO) 87 % (42-75); PLATELET COUNT 74 10^3/uL (130-400); RED CELL DISTRIBUTION WIDTH 17.5 % (10.0-14.5); WHITE BLOOD COUNT 6.5 10^3/uL (4.3-11.0)
[2018-08-10 09:30] LABS: ALANINE AMINOTRANSFERASE 17 U/L (0-55); ALBUMIN 3.4 GM/DL (3.2-4.5); ALKALINE PHOSPHATASE 50 U/L (40-136); BILIRUBIN,TOTAL 0.8 MG/DL (0.1-1.0); BUN/CREATININE RATIO 16; CALCIUM 7.9 MG/DL (8.5-10.1); CARBON DIOXIDE 21 MMOL/L (21-32); CHLORIDE 110 MMOL/L (98-107); CREATININE SERUM 0.63 MG/DL (0.60-1.30); GFR ESTIMATED > 60; GLUCOSE 112 MG/DL (70-105); POTASSIUM 3.5 MMOL/L (3.6-5.0); SODIUM 137 MMOL/L (135-145); TOTAL PROTEIN 4.9 GM/DL (6.4-8.2)
[2018-08-17 08:57] LABS: BASOPHILS % (AUTO) 0 % (0-10); EOSINOPHILS # (AUTO) 0.1 10^3/uL (0.0-0.3); EOSINOPHILS % (AUTO) 2 % (0-10); HEMATOCRIT 34 % (40-54); HEMOGLOBIN 11.5 G/DL (13.3-17.7); LYMPHOCYTES # (AUTO) 0.6 X 10^3 (1.0-4.0); LYMPHOCYTES % (AUTO) 12 % (12-44); MEAN CORPUSCULAR HEMOGLOBIN 32 PG (25-34); MEAN CORPUSCULAR HGB CONC 34 G/DL (32-36); MEAN CORPUSCULAR VOLUME 93 FL (80-99); MEAN PLATELET VOLUME 9.8 FL (7.4-10.4); MONOCYTES # (AUTO) 0.3 X 10^3 (0.0-1.0); MONOCYTES % (AUTO) 6 % (0-12); NEUTROPHILS # (AUTO) 3.9 X 10^3 (1.8-7.8); NEUTROPHILS % (AUTO) 79 % (42-75); PLATELET COUNT 76 10^3/uL (130-400); RED BLOOD COUNT 3.62 10^6/uL (4.35-5.85); RED CELL DISTRIBUTION WIDTH 18.2 % (10.0-14.5); WHITE BLOOD COUNT 4.9 10^3/uL (4.3-11.0)
[2018-08-17 09:17] LABS: ALANINE AMINOTRANSFERASE 23 U/L (0-55); ALBUMIN 3.8 GM/DL (3.2-4.5); ALKALINE PHOSPHATASE 51 U/L (40-136); BILIRUBIN,TOTAL 0.9 MG/DL (0.1-1.0); BUN/CREATININE RATIO 18; CALCIUM 8.9 MG/DL (8.5-10.1); CARBON DIOXIDE 27 MMOL/L (21-32); CHLORIDE 106 MMOL/L (98-107); CREATININE SERUM 0.67 MG/DL (0.60-1.30); GFR ESTIMATED > 60; GLUCOSE 95 MG/DL (70-105); SODIUM 139 MMOL/L (135-145)
[2018-08-24 10:24] LABS: BASOPHILS % (AUTO) 1 % (0-10); EOSINOPHILS % (AUTO) 1 % (0-10); HEMATOCRIT 33 % (40-54); HEMOGLOBIN 11.7 G/DL (13.3-17.7); LYMPHOCYTES # (AUTO) 0.4 X 10^3 (1.0-4.0); LYMPHOCYTES % (AUTO) 12 % (12-44); MEAN CORPUSCULAR HEMOGLOBIN 33 PG (25-34); MEAN CORPUSCULAR HGB CONC 35 G/DL (32-36); MEAN CORPUSCULAR VOLUME 94 FL (80-99); MEAN PLATELET VOLUME 8.8 FL (7.4-10.4); MONOCYTES # (AUTO) 0.1 X 10^3 (0.0-1.0); MONOCYTES % (AUTO) 3 % (0-12); NEUTROPHILS # (AUTO) 2.9 X 10^3 (1.8-7.8); NEUTROPHILS % (AUTO) 84 % (42-75); PLATELET COUNT 95 10^3/uL (130-400); RED BLOOD COUNT 3.53 10^6/uL (4.35-5.85); RED CELL DISTRIBUTION WIDTH 17.8 % (10.0-14.5); WHITE BLOOD COUNT 3.5 10^3/uL (4.3-11.0)
[2018-08-24 10:57] LABS: ALANINE AMINOTRANSFERASE 26 U/L (0-55); ALBUMIN 4.2 GM/DL (3.2-4.5); ALKALINE PHOSPHATASE 53 U/L (40-136); BILIRUBIN,TOTAL 0.9 MG/DL (0.1-1.0); BUN/CREATININE RATIO 15; CARBON DIOXIDE 23 MMOL/L (21-32); CHLORIDE 108 MMOL/L (98-107); CREATININE SERUM 0.66 MG/DL (0.60-1.30); GFR ESTIMATED > 60; GLUCOSE 105 MG/DL (70-105); SODIUM 139 MMOL/L (135-145)
[~2018-08-25] VITALS: Ht 168.9 cm; Wt 86.2 kg
[~2018-08-25 09:44] MED LIST changes: +BORTEZOMIB 3.5 MG VELCADE SC SCH; +CARFILZOMIB IV SCH; +D5W 500 ML IV (CANCER CTR) 500 ML IV ONE; +D5W 500 ML IV (CANCER CTR) 500 ML IV SCH; +D5W IV SCH; +FAMOTIDINE 20MG/2ML IV (CANCER CTR) IV SCH; +NS IV 500 ML (CANCER CENTER) 500 ML ONE; +ONDANSETRON MDV (CANCER CENTER 16 MG, DEXAMETHASONE INJECTION 10 MG in NS (IVPB) CANCER... IV SCH; +PALONOSETRON HCL 0.25 MG/5 ML IV SCH; +ZOLEDRONIC ACID (CANCER CTR) 4 MG in NS (IVPB) CANCER CENTER 100 ML IV SCH; +diphenhydrAMINE 25 MG TAB (BENADRYL) CANCER CENTER PO ONE; +diphenhydrAMINE 25 MG TAB (BENADRYL) CANCER CENTER PO SCH
[2018-08-31 09:14] LABS: BASOPHILS % (AUTO) 0 % (0-10); EOSINOPHILS # (AUTO) 0.1 10^3/uL (0.0-0.3); EOSINOPHILS % (AUTO) 2 % (0-10); HEMATOCRIT 35 % (40-54); HEMOGLOBIN 12.1 G/DL (13.3-17.7); LYMPHOCYTES # (AUTO) 0.6 X 10^3 (1.0-4.0); LYMPHOCYTES % (AUTO) 13 % (12-44); MEAN CORPUSCULAR HEMOGLOBIN 33 PG (25-34); MEAN CORPUSCULAR HGB CONC 35 G/DL (32-36); MEAN CORPUSCULAR VOLUME 94 FL (80-99); MEAN PLATELET VOLUME 9.8 FL (7.4-10.4); MONOCYTES # (AUTO) 0.2 X 10^3 (0.0-1.0); MONOCYTES % (AUTO) 3 % (0-12); NEUTROPHILS # (AUTO) 3.8 X 10^3 (1.8-7.8); NEUTROPHILS % (AUTO) 82 % (42-75); PLATELET COUNT 93 10^3/uL (130-400); RED BLOOD COUNT 3.71 10^6/uL (4.35-5.85); RED CELL DISTRIBUTION WIDTH 17.8 % (10.0-14.5); WHITE BLOOD COUNT 4.6 10^3/uL (4.3-11.0)
[2018-08-31 09:36] LABS: BUN/CREATININE RATIO 11; CALCIUM 8.9 MG/DL (8.5-10.1); CARBON DIOXIDE 23 MMOL/L (21-32); CHLORIDE 106 MMOL/L (98-107); CREATININE SERUM 0.73 MG/DL (0.60-1.30); GFR ESTIMATED > 60; GLUCOSE 97 MG/DL (70-105); POTASSIUM 3.9 MMOL/L (3.6-5.0); SODIUM 139 MMOL/L (135-145)
== END 2018-08-31 08:55 | disposition home or self-care (01) ==
LOC: ONC 09:44
PROVIDERS: ATTEND Internal Medicine Hematology & Oncology
DX: Z51.11 Encounter for antineoplastic chemotherapy (principal); C90.00 Multiple myeloma not having achieved remission; I48.91 Unspecified atrial fibrillation; E83.52 Hypercalcemia; M89.9 Disorder of bone, unspecified; D64.9 Anemia, unspecified; K21.9 Gastro-esophageal reflux disease without esophagitis; D70.9 Neutropenia, unspecified; D69.6 Thrombocytopenia, unspecified; Z79.899 Other long term (current) drug therapy
CPT/HCPCS: 36415; 80048; 80053; 82784; 83883; 85025; 96367; 96375; 96409; 96413; 99213

== ENCOUNTER 2018-10-26 09:08 | Outpatient (RCR) | payer MEDICARE, OTHER ==
[2018-08-31 09:14] LABS: BASOPHILS % (AUTO) 0 % (0-10); EOSINOPHILS # (AUTO) 0.1 10^3/uL (0.0-0.3); EOSINOPHILS % (AUTO) 2 % (0-10); HEMATOCRIT 35 % (40-54); HEMOGLOBIN 12.1 G/DL (13.3-17.7); LYMPHOCYTES # (AUTO) 0.6 X 10^3 (1.0-4.0); LYMPHOCYTES % (AUTO) 13 % (12-44); MEAN CORPUSCULAR HEMOGLOBIN 33 PG (25-34); MEAN CORPUSCULAR HGB CONC 35 G/DL (32-36); MEAN CORPUSCULAR VOLUME 94 FL (80-99); MEAN PLATELET VOLUME 9.8 FL (7.4-10.4); MONOCYTES # (AUTO) 0.2 X 10^3 (0.0-1.0); MONOCYTES % (AUTO) 3 % (0-12); NEUTROPHILS # (AUTO) 3.8 X 10^3 (1.8-7.8); NEUTROPHILS % (AUTO) 82 % (42-75); PLATELET COUNT 93 10^3/uL (130-400); RED BLOOD COUNT 3.71 10^6/uL (4.35-5.85); RED CELL DISTRIBUTION WIDTH 17.8 % (10.0-14.5); WHITE BLOOD COUNT 4.6 10^3/uL (4.3-11.0)
[2018-08-31 09:36] LABS: BUN/CREATININE RATIO 11; CALCIUM 8.9 MG/DL (8.5-10.1); CARBON DIOXIDE 23 MMOL/L (21-32); CHLORIDE 106 MMOL/L (98-107); CREATININE SERUM 0.73 MG/DL (0.60-1.30); GFR ESTIMATED > 60; GLUCOSE 97 MG/DL (70-105); POTASSIUM 3.9 MMOL/L (3.6-5.0); SODIUM 139 MMOL/L (135-145)
[2018-09-07 09:15] LABS: BASOPHILS % (AUTO) 0 % (0-10); EOSINOPHILS # (AUTO) 0.2 10^3/uL (0.0-0.3); EOSINOPHILS % (AUTO) 4 % (0-10); HEMATOCRIT 32 % (40-54); LYMPHOCYTES # (AUTO) 0.7 X 10^3 (1.0-4.0); LYMPHOCYTES % (AUTO) 15 % (12-44); MEAN CORPUSCULAR HEMOGLOBIN 33 PG (25-34); MEAN CORPUSCULAR HGB CONC 35 G/DL (32-36); MEAN CORPUSCULAR VOLUME 95 FL (80-99); MEAN PLATELET VOLUME 9.8 FL (7.4-10.4); MONOCYTES # (AUTO) 0.2 X 10^3 (0.0-1.0); MONOCYTES % (AUTO) 4 % (0-12); NEUTROPHILS # (AUTO) 3.8 X 10^3 (1.8-7.8); NEUTROPHILS % (AUTO) 78 % (42-75); PLATELET COUNT 73 10^3/uL (130-400); RED BLOOD COUNT 3.34 10^6/uL (4.35-5.85); WHITE BLOOD COUNT 4.9 10^3/uL (4.3-11.0)
[2018-09-07 09:30] LABS: BUN/CREATININE RATIO 15; CALCIUM 8.4 MG/DL (8.5-10.1); CARBON DIOXIDE 22 MMOL/L (21-32); CHLORIDE 110 MMOL/L (98-107); CREATININE SERUM 0.68 MG/DL (0.60-1.30); GFR ESTIMATED > 60; GLUCOSE 98 MG/DL (70-105); POTASSIUM 3.9 MMOL/L (3.6-5.0); SODIUM 141 MMOL/L (135-145)
[~2018-10-26 09:08] MED LIST changes: -BORTEZOMIB 3.5 MG VELCADE SC SCH; -D5W 500 ML IV (CANCER CTR) 500 ML IV ONE; -DILT240C63 PO; +DILT240C97 PO; -PALONOSETRON HCL 0.25 MG/5 ML IV SCH; -diphenhydrAMINE 25 MG TAB (BENADRYL) CANCER CENTER PO ONE
[2018-10-26 09:32] LABS: BASOPHILS % (AUTO) 0 % (0-10); EOSINOPHILS % (AUTO) 0 % (0-10); HEMATOCRIT 36 % (40-54); HEMOGLOBIN 12.6 G/DL (13.3-17.7); LYMPHOCYTES # (AUTO) 0.4 X 10^3 (1.0-4.0); LYMPHOCYTES % (AUTO) 11 % (12-44); MEAN CORPUSCULAR HEMOGLOBIN 32 PG (25-34); MEAN CORPUSCULAR HGB CONC 35 G/DL (32-36); MEAN CORPUSCULAR VOLUME 93 FL (80-99); MEAN PLATELET VOLUME 8.3 FL (7.4-10.4); MONOCYTES # (AUTO) 0.1 X 10^3 (0.0-1.0); MONOCYTES % (AUTO) 3 % (0-12); NEUTROPHILS # (AUTO) 3.3 X 10^3 (1.8-7.8); NEUTROPHILS % (AUTO) 87 % (42-75); PLATELET COUNT 120 10^3/uL (130-400); RED BLOOD COUNT 3.92 10^6/uL (4.35-5.85); RED CELL DISTRIBUTION WIDTH 14.2 % (10.0-14.5); WHITE BLOOD COUNT 3.8 10^3/uL (4.3-11.0)
[2018-10-26 09:59] LABS: ALANINE AMINOTRANSFERASE 19 U/L (0-55); ALBUMIN 4.4 GM/DL (3.2-4.5); ALKALINE PHOSPHATASE 56 U/L (40-136); BILIRUBIN,TOTAL 0.7 MG/DL (0.1-1.0); BUN/CREATININE RATIO 14; CALCIUM 9.3 MG/DL (8.5-10.1); CARBON DIOXIDE 21 MMOL/L (21-32); CHLORIDE 107 MMOL/L (98-107); CREATININE SERUM 0.69 MG/DL (0.60-1.30); GFR ESTIMATED > 60; GLUCOSE 120 MG/DL (70-105); POTASSIUM 3.8 MMOL/L (3.6-5.0); SODIUM 138 MMOL/L (135-145)
== END 2018-11-29 | disposition home or self-care (01) ==
LOC: ONC 09:08
PROVIDERS: ATTEND Internal Medicine Hematology & Oncology
DX: Z51.11 Encounter for antineoplastic chemotherapy (principal); C90.00 Multiple myeloma not having achieved remission
CPT/HCPCS: 36415; 80048; 80053; 82784; 83883; 85025; 96365; 96366; 96374; 96375; 96409; 96413; 99213

== ENCOUNTER 2019-03-01 08:16 | Outpatient (RCR) | payer MEDICARE, OTHER ==
[2018-12-21 09:13] LABS: BASOPHILS % (AUTO) 1 % (0-10); EOSINOPHILS % (AUTO) 0 % (0-10); HEMATOCRIT 39 % (40-54); LYMPHOCYTES # (AUTO) 0.4 X 10^3 (1.0-4.0); LYMPHOCYTES % (AUTO) 13 % (12-44); MEAN CORPUSCULAR HEMOGLOBIN 29 PG (25-34); MEAN CORPUSCULAR HGB CONC 33 G/DL (32-36); MEAN CORPUSCULAR VOLUME 87 FL (80-99); MEAN PLATELET VOLUME 8.8 FL (7.4-10.4); MONOCYTES # (AUTO) 0.2 X 10^3 (0.0-1.0); MONOCYTES % (AUTO) 5 % (0-12); NEUTROPHILS # (AUTO) 2.7 X 10^3 (1.8-7.8); NEUTROPHILS % (AUTO) 81 % (42-75); PLATELET COUNT 128 10^3/uL (130-400); RED CELL DISTRIBUTION WIDTH 15.4 % (10.0-14.5); WHITE BLOOD COUNT 3.3 10^3/uL (4.3-11.0)
[2018-12-21 09:32] LABS: ALANINE AMINOTRANSFERASE 19 U/L (0-55); ALBUMIN 3.9 GM/DL (3.2-4.5); ALKALINE PHOSPHATASE 55 U/L (40-136); BILIRUBIN,TOTAL 0.5 MG/DL (0.1-1.0); BUN/CREATININE RATIO 19; CALCIUM 8.8 MG/DL (8.5-10.1); CARBON DIOXIDE 24 MMOL/L (21-32); CHLORIDE 107 MMOL/L (98-107); GFR ESTIMATED > 60; GLUCOSE 114 MG/DL (70-105); SODIUM 137 MMOL/L (135-145); TOTAL PROTEIN 6.2 GM/DL (6.4-8.2)
[2018-12-28 08:37] LABS: BASOPHILS % (AUTO) 1 % (0-10); EOSINOPHILS # (AUTO) 0.3 10^3/uL (0.0-0.3); EOSINOPHILS % (AUTO) 6 % (0-10); HEMATOCRIT 37 % (40-54); HEMOGLOBIN 12.5 G/DL (13.3-17.7); LYMPHOCYTES # (AUTO) 0.8 X 10^3 (1.0-4.0); LYMPHOCYTES % (AUTO) 16 % (12-44); MEAN CORPUSCULAR HEMOGLOBIN 30 PG (25-34); MEAN CORPUSCULAR HGB CONC 34 G/DL (32-36); MEAN CORPUSCULAR VOLUME 87 FL (80-99); MEAN PLATELET VOLUME 9.1 FL (7.4-10.4); MONOCYTES # (AUTO) 0.7 X 10^3 (0.0-1.0); MONOCYTES % (AUTO) 14 % (0-12); NEUTROPHILS # (AUTO) 3.2 X 10^3 (1.8-7.8); NEUTROPHILS % (AUTO) 64 % (42-75); PLATELET COUNT 121 10^3/uL (130-400); RED CELL DISTRIBUTION WIDTH 15.7 % (10.0-14.5); WHITE BLOOD COUNT 5.1 10^3/uL (4.3-11.0)
[2018-12-28 08:59] LABS: ALANINE AMINOTRANSFERASE 18 U/L (0-55); ALBUMIN 3.7 GM/DL (3.2-4.5); ALKALINE PHOSPHATASE 49 U/L (40-136); BILIRUBIN,TOTAL 0.7 MG/DL (0.1-1.0); BUN/CREATININE RATIO 16; CALCIUM 8.3 MG/DL (8.5-10.1); CARBON DIOXIDE 24 MMOL/L (21-32); CHLORIDE 108 MMOL/L (98-107); CREATININE SERUM 0.68 MG/DL (0.60-1.30); GFR ESTIMATED > 60; GLUCOSE 73 MG/DL (70-105); POTASSIUM 3.8 MMOL/L (3.6-5.0); SODIUM 141 MMOL/L (135-145); TOTAL PROTEIN 5.4 GM/DL (6.4-8.2)
[2019-01-04 08:56] LABS: BASOPHILS % (AUTO) 0 % (0-10); EOSINOPHILS # (AUTO) 0.3 10^3/uL (0.0-0.3); EOSINOPHILS % (AUTO) 6 % (0-10); HEMATOCRIT 37 % (40-54); HEMOGLOBIN 12.2 G/DL (13.3-17.7); LYMPHOCYTES # (AUTO) 0.7 X 10^3 (1.0-4.0); LYMPHOCYTES % (AUTO) 13 % (12-44); MEAN CORPUSCULAR HEMOGLOBIN 29 PG (25-34); MEAN CORPUSCULAR HGB CONC 33 G/DL (32-36); MEAN CORPUSCULAR VOLUME 87 FL (80-99); MEAN PLATELET VOLUME 8.8 FL (7.4-10.4); MONOCYTES # (AUTO) 0.9 X 10^3 (0.0-1.0); MONOCYTES % (AUTO) 19 % (0-12); NEUTROPHILS # (AUTO) 2.9 X 10^3 (1.8-7.8); NEUTROPHILS % (AUTO) 61 % (42-75); PLATELET COUNT 71 10^3/uL (130-400); WHITE BLOOD COUNT 4.9 10^3/uL (4.3-11.0)
[2019-01-04 09:05] LABS: BUN/CREATININE RATIO 12; CALCIUM 8.6 MG/DL (8.5-10.1); CARBON DIOXIDE 23 MMOL/L (21-32); CHLORIDE 107 MMOL/L (98-107); CREATININE SERUM 0.67 MG/DL (0.60-1.30); GFR ESTIMATED > 60; GLUCOSE 75 MG/DL (70-105); POTASSIUM 3.7 MMOL/L (3.6-5.0); SODIUM 139 MMOL/L (135-145)
[2019-01-12 10:24] LABS: BASOPHILS % (AUTO) 0 % (0-10); EOSINOPHILS % (AUTO) 0 % (0-10); HEMATOCRIT 35 % (40-54); HEMOGLOBIN 11.8 G/DL (13.3-17.7); LYMPHOCYTES # (AUTO) 0.4 X 10^3 (1.0-4.0); LYMPHOCYTES % (AUTO) 6 % (12-44); MEAN CORPUSCULAR HEMOGLOBIN 29 PG (25-34); MEAN CORPUSCULAR HGB CONC 34 G/DL (32-36); MEAN CORPUSCULAR VOLUME 86 FL (80-99); MEAN PLATELET VOLUME 9.1 FL (7.4-10.4); MONOCYTES # (AUTO) 0.6 X 10^3 (0.0-1.0); MONOCYTES % (AUTO) 9 % (0-12); NEUTROPHILS # (AUTO) 5.7 X 10^3 (1.8-7.8); NEUTROPHILS % (AUTO) 85 % (42-75); PLATELET COUNT 126 10^3/uL (130-400); RED CELL DISTRIBUTION WIDTH 16.7 % (10.0-14.5); WHITE BLOOD COUNT 6.7 10^3/uL (4.3-11.0)
[2019-01-12 10:46] LABS: ALANINE AMINOTRANSFERASE 22 U/L (0-55); ALBUMIN 4.1 GM/DL (3.2-4.5); ALKALINE PHOSPHATASE 55 U/L (40-136); BILIRUBIN,TOTAL 0.8 MG/DL (0.1-1.0); BUN/CREATININE RATIO 21; CARBON DIOXIDE 24 MMOL/L (21-32); CHLORIDE 106 MMOL/L (98-107); GFR ESTIMATED > 60; GLUCOSE 119 MG/DL (70-105); POTASSIUM 4.2 MMOL/L (3.6-5.0); SODIUM 139 MMOL/L (135-145)
[2019-01-18 08:39] LABS: BASOPHILS % (AUTO) 0 % (0-10); EOSINOPHILS % (AUTO) 0 % (0-10); HEMATOCRIT 39 % (40-54); LYMPHOCYTES # (AUTO) 0.3 X 10^3 (1.0-4.0); LYMPHOCYTES % (AUTO) 8 % (12-44); MEAN CORPUSCULAR HEMOGLOBIN 29 PG (25-34); MEAN CORPUSCULAR HGB CONC 33 G/DL (32-36); MEAN CORPUSCULAR VOLUME 86 FL (80-99); MEAN PLATELET VOLUME 9.1 FL (7.4-10.4); MONOCYTES # (AUTO) 0.2 X 10^3 (0.0-1.0); MONOCYTES % (AUTO) 6 % (0-12); NEUTROPHILS # (AUTO) 3.3 X 10^3 (1.8-7.8); NEUTROPHILS % (AUTO) 86 % (42-75); PLATELET COUNT 117 10^3/uL (130-400); RED CELL DISTRIBUTION WIDTH 17.5 % (10.0-14.5); WHITE BLOOD COUNT 3.9 10^3/uL (4.3-11.0)
[2019-01-18 08:56] LABS: BUN/CREATININE RATIO 15; CALCIUM 8.1 MG/DL (8.5-10.1); CARBON DIOXIDE 24 MMOL/L (21-32); CHLORIDE 102 MMOL/L (98-107); CREATININE SERUM 0.78 MG/DL (0.60-1.30); GFR ESTIMATED > 60; GLUCOSE 123 MG/DL (70-105); POTASSIUM 3.7 MMOL/L (3.6-5.0); SODIUM 137 MMOL/L (135-145)
[2019-01-25 08:31] LABS: BASOPHILS % (AUTO) 0 % (0-10); EOSINOPHILS % (AUTO) 0 % (0-10); HEMATOCRIT 37 % (40-54); HEMOGLOBIN 12.3 G/DL (13.3-17.7); LYMPHOCYTES # (AUTO) 0.3 X 10^3 (1.0-4.0); LYMPHOCYTES % (AUTO) 4 % (12-44); MEAN CORPUSCULAR HEMOGLOBIN 28 PG (25-34); MEAN CORPUSCULAR HGB CONC 33 G/DL (32-36); MEAN CORPUSCULAR VOLUME 86 FL (80-99); MEAN PLATELET VOLUME 9.5 FL (7.4-10.4); MONOCYTES # (AUTO) 0.2 X 10^3 (0.0-1.0); MONOCYTES % (AUTO) 3 % (0-12); NEUTROPHILS # (AUTO) 6.9 X 10^3 (1.8-7.8); NEUTROPHILS % (AUTO) 92 % (42-75); PLATELET COUNT 119 10^3/uL (130-400); RED CELL DISTRIBUTION WIDTH 17.5 % (10.0-14.5); WHITE BLOOD COUNT 7.5 10^3/uL (4.3-11.0)
[2019-01-25 08:53] LABS: BUN/CREATININE RATIO 20; CALCIUM 8.9 MG/DL (8.5-10.1); CARBON DIOXIDE 24 MMOL/L (21-32); CHLORIDE 106 MMOL/L (98-107); CREATININE SERUM 0.71 MG/DL (0.60-1.30); GFR ESTIMATED > 60; GLUCOSE 107 MG/DL (70-105); POTASSIUM 3.9 MMOL/L (3.6-5.0); SODIUM 140 MMOL/L (135-145)
[2019-02-01 08:40] LABS: BASOPHILS % (AUTO) 0 % (0-10); EOSINOPHILS # (AUTO) 0.3 10^3/uL (0.0-0.3); EOSINOPHILS % (AUTO) 6 % (0-10); HEMATOCRIT 39 % (40-54); HEMOGLOBIN 12.8 G/DL (13.3-17.7); LYMPHOCYTES # (AUTO) 0.6 X 10^3 (1.0-4.0); LYMPHOCYTES % (AUTO) 10 % (12-44); MEAN CORPUSCULAR HEMOGLOBIN 29 PG (25-34); MEAN CORPUSCULAR HGB CONC 33 G/DL (32-36); MEAN CORPUSCULAR VOLUME 87 FL (80-99); MEAN PLATELET VOLUME 8.9 FL (7.4-10.4); MONOCYTES # (AUTO) 0.7 X 10^3 (0.0-1.0); MONOCYTES % (AUTO) 11 % (0-12); NEUTROPHILS # (AUTO) 4.1 X 10^3 (1.8-7.8); NEUTROPHILS % (AUTO) 73 % (42-75); PLATELET COUNT 89 10^3/uL (130-400); RED CELL DISTRIBUTION WIDTH 17.9 % (10.0-14.5); WHITE BLOOD COUNT 5.7 10^3/uL (4.3-11.0)
[2019-02-01 08:56] LABS: BUN/CREATININE RATIO 14; CALCIUM 8.9 MG/DL (8.5-10.1); CARBON DIOXIDE 25 MMOL/L (21-32); CHLORIDE 104 MMOL/L (98-107); CREATININE SERUM 0.76 MG/DL (0.60-1.30); GFR ESTIMATED > 60; GLUCOSE 92 MG/DL (70-105); POTASSIUM 3.7 MMOL/L (3.6-5.0); SODIUM 138 MMOL/L (135-145)
[2019-02-08 08:28] LABS: BASOPHILS % (AUTO) 1 % (0-10); EOSINOPHILS # (AUTO) 0.2 10^3/uL (0.0-0.3); EOSINOPHILS % (AUTO) 7 % (0-10); HEMATOCRIT 35 % (40-54); HEMOGLOBIN 11.6 G/DL (13.3-17.7); LYMPHOCYTES # (AUTO) 0.4 X 10^3 (1.0-4.0); LYMPHOCYTES % (AUTO) 13 % (12-44); MEAN CORPUSCULAR HEMOGLOBIN 29 PG (25-34); MEAN CORPUSCULAR HGB CONC 34 G/DL (32-36); MEAN CORPUSCULAR VOLUME 87 FL (80-99); MEAN PLATELET VOLUME 9.4 FL (7.4-10.4); MONOCYTES # (AUTO) 0.4 X 10^3 (0.0-1.0); MONOCYTES % (AUTO) 14 % (0-12); NEUTROPHILS % (AUTO) 65 % (42-75); PLATELET COUNT 65 10^3/uL (130-400); RED CELL DISTRIBUTION WIDTH 18.4 % (10.0-14.5)
[2019-02-08 08:46] LABS: BUN/CREATININE RATIO 17; CALCIUM 8.5 MG/DL (8.5-10.1); CARBON DIOXIDE 25 MMOL/L (21-32); CHLORIDE 110 MMOL/L (98-107); CREATININE SERUM 0.72 MG/DL (0.60-1.30); GFR ESTIMATED > 60; GLUCOSE 94 MG/DL (70-105); POTASSIUM 3.7 MMOL/L (3.6-5.0); SODIUM 145 MMOL/L (135-145)
[2019-02-15 10:29] LABS: BASOPHILS # (AUTO) 0.1 10^3/uL (0.0-0.1); BASOPHILS % (AUTO) 2 % (0-10); EOSINOPHILS # (AUTO) 0.1 10^3/uL (0.0-0.3); EOSINOPHILS % (AUTO) 3 % (0-10); HEMATOCRIT 33 % (40-54); LYMPHOCYTES # (AUTO) 0.8 X 10^3 (1.0-4.0); LYMPHOCYTES % (AUTO) 29 % (12-44); MEAN CORPUSCULAR HEMOGLOBIN 29 PG (25-34); MEAN CORPUSCULAR HGB CONC 34 G/DL (32-36); MEAN CORPUSCULAR VOLUME 87 FL (80-99); MEAN PLATELET VOLUME 8.6 FL (7.4-10.4); MONOCYTES # (AUTO) 0.7 X 10^3 (0.0-1.0); MONOCYTES % (AUTO) 25 % (0-12); NEUTROPHILS # (AUTO) 1.2 X 10^3 (1.8-7.8); NEUTROPHILS % (AUTO) 42 % (42-75); PLATELET COUNT 89 10^3/uL (130-400); RED CELL DISTRIBUTION WIDTH 19.2 % (10.0-14.5); WHITE BLOOD COUNT 2.8 10^3/uL (4.3-11.0)
[2019-02-15 10:55] LABS: CARBON DIOXIDE 25 MMOL/L (21-32); CHLORIDE 105 MMOL/L (98-107); POTASSIUM 3.8 MMOL/L (3.6-5.0); SODIUM 138 MMOL/L (135-145)
[2019-02-15 10:56] LABS: ALANINE AMINOTRANSFERASE 16 U/L (0-55); ALBUMIN 3.7 GM/DL (3.2-4.5); ALKALINE PHOSPHATASE 54 U/L (40-136); BILIRUBIN,TOTAL 0.7 MG/DL (0.1-1.0); BUN/CREATININE RATIO 22; CALCIUM 8.7 MG/DL (8.5-10.1); CREATININE SERUM 0.76 MG/DL (0.60-1.30); GFR ESTIMATED > 60; GLUCOSE 101 MG/DL (70-105); TOTAL PROTEIN 5.3 GM/DL (6.4-8.2)
[2019-02-18 07:49] LABS: IMMUNOFIX PATH REPORT NUMBER Complete (Complete)
[~2019-03-01 08:16] MED LIST changes: -CARFILZOMIB IV SCH; -D5W 500 ML IV (CANCER CTR) 500 ML IV SCH; -D5W IV SCH; -FAMOTIDINE 20MG/2ML IV (CANCER CTR) IV SCH; -NS IV 500 ML (CANCER CENTER) 500 ML ONE; -ONDANSETRON MDV (CANCER CENTER 16 MG, DEXAMETHASONE INJECTION 10 MG in NS (IVPB) CANCER... IV SCH; -diphenhydrAMINE 25 MG TAB (BENADRYL) CANCER CENTER PO SCH
[2019-03-01 08:27] LABS: BASOPHILS % (AUTO) 0 % (0-10); EOSINOPHILS # (AUTO) 0.2 10^3/uL (0.0-0.3); EOSINOPHILS % (AUTO) 5 % (0-10); HEMATOCRIT 33 % (40-54); HEMOGLOBIN 11.2 G/DL (13.3-17.7); LYMPHOCYTES % (AUTO) 21 % (12-44); MEAN CORPUSCULAR HEMOGLOBIN 30 PG (25-34); MEAN CORPUSCULAR HGB CONC 34 G/DL (32-36); MEAN CORPUSCULAR VOLUME 88 FL (80-99); MEAN PLATELET VOLUME 8.7 FL (7.4-10.4); MONOCYTES % (AUTO) 21 % (0-12); NEUTROPHILS # (AUTO) 2.5 X 10^3 (1.8-7.8); NEUTROPHILS % (AUTO) 54 % (42-75); PLATELET COUNT 84 10^3/uL (130-400); RED CELL DISTRIBUTION WIDTH 19.9 % (10.0-14.5); WHITE BLOOD COUNT 4.6 10^3/uL (4.3-11.0)
[2019-03-01 08:46] LABS: ALANINE AMINOTRANSFERASE 19 U/L (0-55); ALBUMIN 3.7 GM/DL (3.2-4.5); ALKALINE PHOSPHATASE 51 U/L (40-136); BUN/CREATININE RATIO 13; CALCIUM 8.4 MG/DL (8.5-10.1); CARBON DIOXIDE 22 MMOL/L (21-32); CHLORIDE 109 MMOL/L (98-107); CREATININE SERUM 0.75 MG/DL (0.60-1.30); GFR ESTIMATED > 60; GLUCOSE 86 MG/DL (70-105); POTASSIUM 3.7 MMOL/L (3.6-5.0); SODIUM 140 MMOL/L (135-145); TOTAL PROTEIN 5.5 GM/DL (6.4-8.2)
== END 2019-03-21 | disposition home or self-care (01) ==
LOC: ONC 08:16
PROVIDERS: ATTEND Internal Medicine Hematology & Oncology
DX: C90.00 Multiple myeloma not having achieved remission (principal); I48.91 Unspecified atrial fibrillation; E83.52 Hypercalcemia; M89.9 Disorder of bone, unspecified; D64.9 Anemia, unspecified; K21.9 Gastro-esophageal reflux disease without esophagitis; D70.9 Neutropenia, unspecified; D69.6 Thrombocytopenia, unspecified; Z79.899 Other long term (current) drug therapy
CPT/HCPCS: 36415; 80048; 80053; 82784; 83883; 84155; 84165; 85025; 86334; 96365; 99213

== ENCOUNTER → 2019-05-18 | Outpatient (CLI) | payer MEDICARE, OTHER ==
[~2019-05-18] MED LIST changes: -ZOLEDRONIC ACID (CANCER CTR) 4 MG in NS (IVPB) CANCER CENTER 100 ML IV SCH
== END ==
LOC: ONC 07:47
PROVIDERS: ATTEND Nurse Practitioner Adult Health
DX: C90.00 Multiple myeloma not having achieved remission (principal); I48.91 Unspecified atrial fibrillation; E83.52 Hypercalcemia; M89.9 Disorder of bone, unspecified; D64.9 Anemia, unspecified; K21.9 Gastro-esophageal reflux disease without esophagitis; D70.9 Neutropenia, unspecified; D69.6 Thrombocytopenia, unspecified; Z79.899 Other long term (current) drug therapy
CPT/HCPCS: 99213

== ENCOUNTER 2019-06-14 08:18 | Outpatient (RCR) | payer MEDICARE, OTHER ==
[2019-03-22 09:14] LABS: BASOPHILS % (AUTO) 0 % (0-10); EOSINOPHILS # (AUTO) 0.2 10^3/uL (0.0-0.3); EOSINOPHILS % (AUTO) 5 % (0-10); HEMATOCRIT 34 % (40-54); HEMOGLOBIN 11.4 G/DL (13.3-17.7); LYMPHOCYTES % (AUTO) 20 % (12-44); MEAN CORPUSCULAR HEMOGLOBIN 29 PG (25-34); MEAN CORPUSCULAR HGB CONC 33 G/DL (32-36); MEAN CORPUSCULAR VOLUME 88 FL (80-99); MONOCYTES # (AUTO) 0.7 X 10^3 (0.0-1.0); MONOCYTES % (AUTO) 14 % (0-12); NEUTROPHILS % (AUTO) 61 % (42-75); PLATELET COUNT 114 10^3/uL (130-400); RED CELL DISTRIBUTION WIDTH 17.7 % (10.0-14.5); WHITE BLOOD COUNT 4.9 10^3/uL (4.3-11.0)
[2019-03-22 09:31] LABS: ALANINE AMINOTRANSFERASE 18 U/L (0-55); ALBUMIN 3.9 GM/DL (3.2-4.5); ALKALINE PHOSPHATASE 47 U/L (40-136); BILIRUBIN,TOTAL 0.8 MG/DL (0.1-1.0); BUN/CREATININE RATIO 20; CALCIUM 8.7 MG/DL (8.5-10.1); CARBON DIOXIDE 25 MMOL/L (21-32); CHLORIDE 109 MMOL/L (98-107); GFR ESTIMATED > 60; GLUCOSE 77 MG/DL (70-105); POTASSIUM 3.8 MMOL/L (3.6-5.0); SODIUM 142 MMOL/L (135-145); TOTAL PROTEIN 5.5 GM/DL (6.4-8.2)
[2019-04-13 09:59] LABS: BASOPHILS % (AUTO) 1 % (0-10); EOSINOPHILS % (AUTO) 1 % (0-10); HEMATOCRIT 36 % (40-54); HEMOGLOBIN 12.2 G/DL (13.3-17.7); LYMPHOCYTES # (AUTO) 1.1 X 10^3 (1.0-4.0); LYMPHOCYTES % (AUTO) 28 % (12-44); MEAN CORPUSCULAR HEMOGLOBIN 29 PG (25-34); MEAN CORPUSCULAR HGB CONC 34 G/DL (32-36); MEAN CORPUSCULAR VOLUME 86 FL (80-99); MEAN PLATELET VOLUME 8.8 FL (7.4-10.4); MONOCYTES % (AUTO) 24 % (0-12); NEUTROPHILS # (AUTO) 1.9 X 10^3 (1.8-7.8); NEUTROPHILS % (AUTO) 47 % (42-75); PLATELET COUNT 108 10^3/uL (130-400); RED CELL DISTRIBUTION WIDTH 17.1 % (10.0-14.5); WHITE BLOOD COUNT 4.1 10^3/uL (4.3-11.0)
[2019-04-13 10:18] LABS: ALANINE AMINOTRANSFERASE 19 U/L (0-55); ALBUMIN 4.1 GM/DL (3.2-4.5); ALKALINE PHOSPHATASE 51 U/L (40-136); BILIRUBIN,TOTAL 0.7 MG/DL (0.1-1.0); BUN/CREATININE RATIO 20; CALCIUM 9.4 MG/DL (8.5-10.1); CARBON DIOXIDE 23 MMOL/L (21-32); CHLORIDE 107 MMOL/L (98-107); CREATININE SERUM 0.92 MG/DL (0.60-1.30); GFR ESTIMATED > 60; GLUCOSE 101 MG/DL (70-105); POTASSIUM 3.7 MMOL/L (3.6-5.0); SODIUM 139 MMOL/L (135-145); TOTAL PROTEIN 5.7 GM/DL (6.4-8.2)
[2019-05-05 09:19] LABS: BASOPHILS % (AUTO) 0 % (0-10); EOSINOPHILS % (AUTO) 0 % (0-10); HEMATOCRIT 34 % (40-54); HEMOGLOBIN 11.5 G/DL (13.3-17.7); LYMPHOCYTES # (AUTO) 0.5 X 10^3 (1.0-4.0); LYMPHOCYTES % (AUTO) 8 % (12-44); MEAN CORPUSCULAR HEMOGLOBIN 29 PG (25-34); MEAN CORPUSCULAR HGB CONC 34 G/DL (32-36); MEAN CORPUSCULAR VOLUME 84 FL (80-99); MEAN PLATELET VOLUME 9.9 FL (7.4-10.4); MONOCYTES # (AUTO) 0.8 X 10^3 (0.0-1.0); MONOCYTES % (AUTO) 16 % (0-12); NEUTROPHILS # (AUTO) 4.1 X 10^3 (1.8-7.8); NEUTROPHILS % (AUTO) 76 % (42-75); PLATELET COUNT 113 10^3/uL (130-400); RED CELL DISTRIBUTION WIDTH 16.8 % (10.0-14.5); WHITE BLOOD COUNT 5.3 10^3/uL (4.3-11.0)
[2019-05-05 09:44] LABS: ALANINE AMINOTRANSFERASE 29 U/L (0-55); ALBUMIN 3.8 GM/DL (3.2-4.5); ALKALINE PHOSPHATASE 52 U/L (40-136); BILIRUBIN,TOTAL 0.9 MG/DL (0.1-1.0); BUN/CREATININE RATIO 30; CALCIUM 8.7 MG/DL (8.5-10.1); CARBON DIOXIDE 24 MMOL/L (21-32); CHLORIDE 103 MMOL/L (98-107); CREATININE SERUM 0.84 MG/DL (0.60-1.30); GFR ESTIMATED > 60; GLUCOSE 112 MG/DL (70-105); SODIUM 137 MMOL/L (135-145); TOTAL PROTEIN 5.7 GM/DL (6.4-8.2)
[2019-05-18 09:16] LABS: BASOPHILS % (AUTO) 0 % (0-10); EOSINOPHILS % (AUTO) 1 % (0-10); HEMATOCRIT 36 % (40-54); HEMOGLOBIN 11.7 G/DL (13.3-17.7); LYMPHOCYTES # (AUTO) 0.6 X 10^3 (1.0-4.0); LYMPHOCYTES % (AUTO) 11 % (12-44); MEAN CORPUSCULAR HEMOGLOBIN 28 PG (25-34); MEAN CORPUSCULAR HGB CONC 33 G/DL (32-36); MEAN CORPUSCULAR VOLUME 86 FL (80-99); MONOCYTES # (AUTO) 0.5 X 10^3 (0.0-1.0); MONOCYTES % (AUTO) 9 % (0-12); NEUTROPHILS # (AUTO) 4.1 X 10^3 (1.8-7.8); NEUTROPHILS % (AUTO) 80 % (42-75); PLATELET COUNT 108 10^3/uL (130-400); RED CELL DISTRIBUTION WIDTH 17.6 % (10.0-14.5); WHITE BLOOD COUNT 5.1 10^3/uL (4.3-11.0)
[2019-06-09 08:47] LABS: BASOPHILS % (AUTO) 0 % (0-10); EOSINOPHILS % (AUTO) 0 % (0-10); HEMATOCRIT 32 % (40-54); HEMOGLOBIN 10.4 G/DL (13.3-17.7); LYMPHOCYTES # (AUTO) 0.6 X 10^3 (1.0-4.0); LYMPHOCYTES % (AUTO) 12 % (12-44); MEAN CORPUSCULAR HEMOGLOBIN 28 PG (25-34); MEAN CORPUSCULAR HGB CONC 32 G/DL (32-36); MEAN CORPUSCULAR VOLUME 86 FL (80-99); MEAN PLATELET VOLUME 8.6 FL (7.4-10.4); MONOCYTES # (AUTO) 0.8 X 10^3 (0.0-1.0); MONOCYTES % (AUTO) 17 % (0-12); NEUTROPHILS # (AUTO) 3.4 X 10^3 (1.8-7.8); NEUTROPHILS % (AUTO) 72 % (42-75); PLATELET COUNT 114 10^3/uL (130-400); RED CELL DISTRIBUTION WIDTH 19.9 % (10.0-14.5); WHITE BLOOD COUNT 4.8 10^3/uL (4.3-11.0)
[2019-06-09 09:04] LABS: ALANINE AMINOTRANSFERASE 17 U/L (0-55); ALBUMIN 3.8 GM/DL (3.2-4.5); ALKALINE PHOSPHATASE 47 U/L (40-136); BILIRUBIN,TOTAL 0.7 MG/DL (0.1-1.0); BUN/CREATININE RATIO 22; CALCIUM 8.4 MG/DL (8.5-10.1); CARBON DIOXIDE 22 MMOL/L (21-32); CHLORIDE 110 MMOL/L (98-107); CREATININE SERUM 0.81 MG/DL (0.60-1.30); GFR ESTIMATED > 60; GLUCOSE 120 MG/DL (70-105); SODIUM 143 MMOL/L (135-145); TOTAL PROTEIN 5.4 GM/DL (6.4-8.2)
[~2019-06-14 08:18] MED LIST changes: +ZOLEDRONIC ACID (CANCER CTR) 4 MG in NS (IVPB) CANCER CENTER 100 ML IV SCH
== END 2019-06-20 | disposition home or self-care (01) ==
LOC: ONC 08:18
PROVIDERS: ATTEND Internal Medicine Hematology & Oncology
DX: C90.00 Multiple myeloma not having achieved remission (principal); I48.91 Unspecified atrial fibrillation; E83.52 Hypercalcemia; M89.9 Disorder of bone, unspecified; D64.9 Anemia, unspecified; K21.9 Gastro-esophageal reflux disease without esophagitis; D70.9 Neutropenia, unspecified; D69.6 Thrombocytopenia, unspecified; Z79.899 Other long term (current) drug therapy
CPT/HCPCS: 36415; 80053; 82274; 82784; 83883; 84155; 84165; 85025; 96365; 99213

== ENCOUNTER 2019-09-28 08:54 | Outpatient (RCR) | payer MEDICARE, OTHER ==
[2019-07-06 08:43] LABS: BASOPHILS % (AUTO) 0 % (0-10); EOSINOPHILS % (AUTO) 0 % (0-10); HEMATOCRIT 35 % (40-54); HEMOGLOBIN 11.7 G/DL (13.3-17.7); LYMPHOCYTES # (AUTO) 0.5 X 10^3 (1.0-4.0); LYMPHOCYTES % (AUTO) 7 % (12-44); MEAN CORPUSCULAR HEMOGLOBIN 28 PG (25-34); MEAN CORPUSCULAR HGB CONC 34 G/DL (32-36); MEAN CORPUSCULAR VOLUME 84 FL (80-99); MEAN PLATELET VOLUME 9.5 FL (7.4-10.4); MONOCYTES # (AUTO) 0.4 X 10^3 (0.0-1.0); MONOCYTES % (AUTO) 6 % (0-12); NEUTROPHILS # (AUTO) 5.4 X 10^3 (1.8-7.8); NEUTROPHILS % (AUTO) 86 % (42-75); PLATELET COUNT 128 10^3/uL (130-400); RED CELL DISTRIBUTION WIDTH 18.1 % (10.0-14.5); WHITE BLOOD COUNT 6.3 10^3/uL (4.3-11.0)
[2019-07-06 09:05] LABS: ALANINE AMINOTRANSFERASE 14 U/L (0-55); ALKALINE PHOSPHATASE 62 U/L (40-136); BILIRUBIN,TOTAL 0.8 MG/DL (0.1-1.0); BUN/CREATININE RATIO 17; CALCIUM 9.2 MG/DL (8.5-10.1); CARBON DIOXIDE 19 MMOL/L (21-32); CHLORIDE 107 MMOL/L (98-107); GFR ESTIMATED > 60; GLUCOSE 139 MG/DL (70-105); SODIUM 140 MMOL/L (135-145); TOTAL PROTEIN 5.9 GM/DL (6.4-8.2)
[2019-08-03 08:50] LABS: BASOPHILS % (AUTO) 0 % (0-10); EOSINOPHILS % (AUTO) 0 % (0-10); HEMATOCRIT 34 % (40-54); HEMOGLOBIN 11.2 G/DL (13.3-17.7); LYMPHOCYTES # (AUTO) 0.4 X 10^3 (1.0-4.0); LYMPHOCYTES % (AUTO) 7 % (12-44); MEAN CORPUSCULAR HEMOGLOBIN 28 PG (25-34); MEAN CORPUSCULAR HGB CONC 33 G/DL (32-36); MEAN CORPUSCULAR VOLUME 84 FL (80-99); MEAN PLATELET VOLUME 10.3 FL (7.4-10.4); MONOCYTES # (AUTO) 0.6 X 10^3 (0.0-1.0); MONOCYTES % (AUTO) 11 % (0-12); NEUTROPHILS # (AUTO) 4.1 X 10^3 (1.8-7.8); NEUTROPHILS % (AUTO) 82 % (42-75); PLATELET COUNT 116 10^3/uL (130-400); RED CELL DISTRIBUTION WIDTH 17.2 % (10.0-14.5)
[2019-08-03 09:10] LABS: ALANINE AMINOTRANSFERASE 17 U/L (0-55); ALKALINE PHOSPHATASE 53 U/L (40-136); BILIRUBIN,TOTAL 0.8 MG/DL (0.1-1.0); BUN/CREATININE RATIO 15; CALCIUM 8.4 MG/DL (8.5-10.1); CARBON DIOXIDE 23 MMOL/L (21-32); CHLORIDE 109 MMOL/L (98-107); CREATININE SERUM 0.86 MG/DL (0.60-1.30); GFR ESTIMATED > 60; GLUCOSE 131 MG/DL (70-105); SODIUM 141 MMOL/L (135-145); TOTAL PROTEIN 5.7 GM/DL (6.4-8.2)
[2019-08-30 08:37] LABS: BASOPHILS % (AUTO) 0 % (0-10); EOSINOPHILS # (AUTO) 0.1 10^3/uL (0.0-0.3); EOSINOPHILS % (AUTO) 2 % (0-10); HEMATOCRIT 36 % (40-54); LYMPHOCYTES # (AUTO) 0.7 X 10^3 (1.0-4.0); LYMPHOCYTES % (AUTO) 11 % (12-44); MEAN CORPUSCULAR HEMOGLOBIN 27 PG (25-34); MEAN CORPUSCULAR HGB CONC 33 G/DL (32-36); MEAN CORPUSCULAR VOLUME 83 FL (80-99); MEAN PLATELET VOLUME 9.5 FL (7.4-10.4); MONOCYTES # (AUTO) 0.4 X 10^3 (0.0-1.0); MONOCYTES % (AUTO) 7 % (0-12); NEUTROPHILS % (AUTO) 80 % (42-75); PLATELET COUNT 117 10^3/uL (130-400); RED CELL DISTRIBUTION WIDTH 17.1 % (10.0-14.5); WHITE BLOOD COUNT 6.3 10^3/uL (4.3-11.0)
[2019-08-30 09:06] LABS: BUN/CREATININE RATIO 11; CARBON DIOXIDE 25 MMOL/L (21-32); CHLORIDE 107 MMOL/L (98-107); CREATININE SERUM 0.73 MG/DL (0.60-1.30); POTASSIUM 3.7 MMOL/L (3.6-5.0); SODIUM 140 MMOL/L (135-145)
[2019-08-30 09:07] LABS: ALANINE AMINOTRANSFERASE 16 U/L (0-55); ALBUMIN 3.9 GM/DL (3.2-4.5); ALKALINE PHOSPHATASE 48 U/L (40-136); BILIRUBIN,TOTAL 0.7 MG/DL (0.1-1.0); CALCIUM 8.8 MG/DL (8.5-10.1); GFR ESTIMATED > 60; GLUCOSE 100 MG/DL (70-105); TOTAL PROTEIN 6.2 GM/DL (6.4-8.2)
[~2019-09-28 08:54] MED LIST changes: +FLU QUADRIvalent (5+ YOA) 2019-2020 (Cancer Ctr) 0.5 ML IM ONE
[2019-09-28 09:12] LABS: BASOPHILS % (AUTO) 0 % (0-10); EOSINOPHILS % (AUTO) 0 % (0-10); HEMATOCRIT 35 % (40-54); HEMOGLOBIN 11.4 G/DL (13.3-17.7); LYMPHOCYTES # (AUTO) 0.4 X 10^3 (1.0-4.0); LYMPHOCYTES % (AUTO) 6 % (12-44); MEAN CORPUSCULAR HEMOGLOBIN 27 PG (25-34); MEAN CORPUSCULAR HGB CONC 33 G/DL (32-36); MEAN CORPUSCULAR VOLUME 82 FL (80-99); MEAN PLATELET VOLUME 9.6 FL (7.4-10.4); MONOCYTES # (AUTO) 0.6 X 10^3 (0.0-1.0); MONOCYTES % (AUTO) 9 % (0-12); NEUTROPHILS # (AUTO) 5.3 X 10^3 (1.8-7.8); NEUTROPHILS % (AUTO) 85 % (42-75); PLATELET COUNT 128 10^3/uL (130-400); RED CELL DISTRIBUTION WIDTH 18.7 % (10.0-14.5); WHITE BLOOD COUNT 6.3 10^3/uL (4.3-11.0)
[2019-09-28 09:37] LABS: ALANINE AMINOTRANSFERASE 14 U/L (0-55); ALBUMIN 3.9 GM/DL (3.2-4.5); ALKALINE PHOSPHATASE 57 U/L (40-136); BILIRUBIN,TOTAL 0.7 MG/DL (0.1-1.0); BUN/CREATININE RATIO 18; CALCIUM 8.7 MG/DL (8.5-10.1); CARBON DIOXIDE 18 MMOL/L (21-32); CHLORIDE 109 MMOL/L (98-107); CREATININE SERUM 0.85 MG/DL (0.60-1.30); GFR ESTIMATED > 60; GLUCOSE 141 MG/DL (70-105); POTASSIUM 3.8 MMOL/L (3.6-5.0); SODIUM 140 MMOL/L (135-145); TOTAL PROTEIN 5.7 GM/DL (6.4-8.2)
[2019-10-05] MEDS ORDERED: ZOLEDRONIC ACID (CANCER CTR) 4 MG in NS (IVPB) CANCER CENTER 100 ML IV SCH (10:30)
== END 2019-10-04 | disposition home or self-care (01) ==
LOC: ONC 08:54
PROVIDERS: ATTEND Internal Medicine Hematology & Oncology
DX: C90.00 Multiple myeloma not having achieved remission (principal); I48.91 Unspecified atrial fibrillation; E83.52 Hypercalcemia; M89.9 Disorder of bone, unspecified; D64.9 Anemia, unspecified; K21.9 Gastro-esophageal reflux disease without esophagitis; D70.9 Neutropenia, unspecified; D69.6 Thrombocytopenia, unspecified; Z79.899 Other long term (current) drug therapy
CPT/HCPCS: 36415; 80053; 82728; 82784; 83540; 83883; 85025; 90471; 96365; 99213

== ENCOUNTER → 2020-01-03 | Outpatient (RCR) | payer MEDICARE, OTHER ==
[2019-11-02 09:28] LABS: BASOPHILS # (AUTO) 0.1 10^3/uL (0.0-0.1); BASOPHILS % (AUTO) 2 % (0-10); EOSINOPHILS # (AUTO) 0.1 10^3/uL (0.0-0.3); EOSINOPHILS % (AUTO) 4 % (0-10); HEMATOCRIT 35 % (40-54); HEMOGLOBIN 11.2 G/DL (13.3-17.7); LYMPHOCYTES # (AUTO) 0.6 X 10^3 (1.0-4.0); LYMPHOCYTES % (AUTO) 18 % (12-44); MEAN CORPUSCULAR HEMOGLOBIN 27 PG (25-34); MEAN CORPUSCULAR HGB CONC 32 G/DL (32-36); MEAN CORPUSCULAR VOLUME 84 FL (80-99); MEAN PLATELET VOLUME 8.3 FL (7.4-10.4); MONOCYTES # (AUTO) 0.8 X 10^3 (0.0-1.0); MONOCYTES % (AUTO) 22 % (0-12); NEUTROPHILS # (AUTO) 1.9 X 10^3 (1.8-7.8); NEUTROPHILS % (AUTO) 55 % (42-75); PLATELET COUNT 96 10^3/uL (130-400); RED CELL DISTRIBUTION WIDTH 20.5 % (10.0-14.5); WHITE BLOOD COUNT 3.6 10^3/uL (4.3-11.0)
[2019-11-02 09:57] LABS: ALANINE AMINOTRANSFERASE 17 U/L (0-55); ALBUMIN 3.7 GM/DL (3.2-4.5); ALKALINE PHOSPHATASE 67 U/L (40-136); BILIRUBIN,TOTAL 0.6 MG/DL (0.1-1.0); BUN/CREATININE RATIO 10; CALCIUM 8.7 MG/DL (8.5-10.1); CARBON DIOXIDE 24 MMOL/L (21-32); CHLORIDE 107 MMOL/L (98-107); GFR ESTIMATED > 60; GLUCOSE 98 MG/DL (70-105); POTASSIUM 3.6 MMOL/L (3.6-5.0); SODIUM 142 MMOL/L (135-145); TOTAL PROTEIN 5.5 GM/DL (6.4-8.2)
[2019-12-13 09:42] LABS: BASOPHILS # (AUTO) 0.1 10^3/uL (0.0-0.1); BASOPHILS % (AUTO) 1 % (0-10); EOSINOPHILS # (AUTO) 0.1 10^3/uL (0.0-0.3); EOSINOPHILS % (AUTO) 1 % (0-10); HEMATOCRIT 38 % (40-54); HEMOGLOBIN 12.2 G/DL (13.3-17.7); LYMPHOCYTES # (AUTO) 1.1 X 10^3 (1.0-4.0); LYMPHOCYTES % (AUTO) 27 % (12-44); MEAN CORPUSCULAR HEMOGLOBIN 26 PG (25-34); MEAN CORPUSCULAR HGB CONC 32 G/DL (32-36); MEAN CORPUSCULAR VOLUME 81 FL (80-99); MEAN PLATELET VOLUME 8.7 FL (7.4-10.4); MONOCYTES # (AUTO) 0.8 X 10^3 (0.0-1.0); MONOCYTES % (AUTO) 18 % (0-12); NEUTROPHILS # (AUTO) 2.2 X 10^3 (1.8-7.8); NEUTROPHILS % (AUTO) 53 % (42-75); PLATELET COUNT 135 10^3/uL (130-400); WHITE BLOOD COUNT 4.1 10^3/uL (4.3-11.0)
[2019-12-13 10:03] LABS: ALANINE AMINOTRANSFERASE 12 U/L (0-55); ALBUMIN 3.6 GM/DL (3.2-4.5); ALKALINE PHOSPHATASE 56 U/L (40-136); BILIRUBIN,TOTAL 0.4 MG/DL (0.1-1.0); BUN/CREATININE RATIO 15; CALCIUM 8.8 MG/DL (8.5-10.1); CARBON DIOXIDE 23 MMOL/L (21-32); CHLORIDE 109 MMOL/L (98-107); CREATININE SERUM 0.84 MG/DL (0.60-1.30); GFR ESTIMATED > 60; GLUCOSE 109 MG/DL (70-105); POTASSIUM 3.6 MMOL/L (3.6-5.0); SODIUM 140 MMOL/L (135-145); TOTAL PROTEIN 5.3 GM/DL (6.4-8.2)
[~2020-01-03] MED LIST changes: -DILT180C PO; +DILT180C85 PO; +DILT240C92 PO; -DILT240C97 PO; -FLU QUADRIvalent (5+ YOA) 2019-2020 (Cancer Ctr) 0.5 ML IM ONE; +LISI1TAB25 PO; +LISI1TAB29 PO; -LISI1TAB6 PO; -LISI1TAB8 PO
[2020-01-03 08:38] LABS: BASOPHILS % (AUTO) 0 % (0-10); EOSINOPHILS % (AUTO) 1 % (0-10); HEMATOCRIT 37 % (40-54); HEMOGLOBIN 11.9 G/DL (13.3-17.7); LYMPHOCYTES # (AUTO) 0.6 X 10^3 (1.0-4.0); LYMPHOCYTES % (AUTO) 14 % (12-44); MEAN CORPUSCULAR HEMOGLOBIN 26 PG (25-34); MEAN CORPUSCULAR HGB CONC 33 G/DL (32-36); MEAN CORPUSCULAR VOLUME 80 FL (80-99); MONOCYTES # (AUTO) 0.2 X 10^3 (0.0-1.0); MONOCYTES % (AUTO) 4 % (0-12); NEUTROPHILS # (AUTO) 3.3 X 10^3 (1.8-7.8); NEUTROPHILS % (AUTO) 81 % (42-75); PLATELET COUNT 102 10^3/uL (130-400); RED CELL DISTRIBUTION WIDTH 18.3 % (10.0-14.5); WHITE BLOOD COUNT 4.1 10^3/uL (4.3-11.0)
[2020-01-03 09:05] LABS: ALANINE AMINOTRANSFERASE 18 U/L (0-55); ALBUMIN 3.8 GM/DL (3.2-4.5); ALKALINE PHOSPHATASE 57 U/L (40-136); BILIRUBIN,TOTAL 0.5 MG/DL (0.1-1.0); BUN/CREATININE RATIO 10; CALCIUM 8.8 MG/DL (8.5-10.1); CARBON DIOXIDE 25 MMOL/L (21-32); CHLORIDE 107 MMOL/L (98-107); CREATININE SERUM 0.78 MG/DL (0.60-1.30); GFR ESTIMATED > 60; GLUCOSE 117 MG/DL (70-105); POTASSIUM 3.8 MMOL/L (3.6-5.0); SODIUM 140 MMOL/L (135-145); TOTAL PROTEIN 5.5 GM/DL (6.4-8.2)
== END | disposition home or self-care (01) ==
LOC: ONC 10-05 08:53
PROVIDERS: ATTEND Internal Medicine Hematology & Oncology
DX: C90.00 Multiple myeloma not having achieved remission (principal); I48.91 Unspecified atrial fibrillation; E83.52 Hypercalcemia; M89.9 Disorder of bone, unspecified; D64.9 Anemia, unspecified; K21.9 Gastro-esophageal reflux disease without esophagitis; D70.9 Neutropenia, unspecified; D69.6 Thrombocytopenia, unspecified; Z79.899 Other long term (current) drug therapy
CPT/HCPCS: 80053; 82784; 83883; 85025; 96365; 99213

== ENCOUNTER 2020-03-13 08:46 | Outpatient (RCR) | payer MEDICARE, OTHER ==
[2020-02-07 08:54] LABS: BASOPHILS # (AUTO) 0.1 10^3/uL (0.0-0.1); BASOPHILS % (AUTO) 2 % (0-10); EOSINOPHILS # (AUTO) 0.1 10^3/uL (0.0-0.3); EOSINOPHILS % (AUTO) 3 % (0-10); HEMATOCRIT 37 % (40-54); LYMPHOCYTES # (AUTO) 1.3 X 10^3 (1.0-4.0); LYMPHOCYTES % (AUTO) 30 % (12-44); MEAN CORPUSCULAR HEMOGLOBIN 27 PG (25-34); MEAN CORPUSCULAR HGB CONC 33 G/DL (32-36); MEAN CORPUSCULAR VOLUME 82 FL (80-99); MEAN PLATELET VOLUME 9.2 FL (7.4-10.4); MONOCYTES % (AUTO) 23 % (0-12); NEUTROPHILS # (AUTO) 1.8 X 10^3 (1.8-7.8); NEUTROPHILS % (AUTO) 43 % (42-75); PLATELET COUNT 134 10^3/uL (130-400); RED CELL DISTRIBUTION WIDTH 20.2 % (10.0-14.5); WHITE BLOOD COUNT 4.3 10^3/uL (4.3-11.0)
[2020-02-07 09:13] LABS: ALANINE AMINOTRANSFERASE 16 U/L (0-55); ALBUMIN 3.8 GM/DL (3.2-4.5); ALKALINE PHOSPHATASE 56 U/L (40-136); BILIRUBIN,TOTAL 0.6 MG/DL (0.1-1.0); BUN/CREATININE RATIO 12; CALCIUM 8.7 MG/DL (8.5-10.1); CARBON DIOXIDE 25 MMOL/L (21-32); CHLORIDE 108 MMOL/L (98-107); CREATININE SERUM 0.73 MG/DL (0.60-1.30); GFR ESTIMATED > 60; GLUCOSE 84 MG/DL (70-105); POTASSIUM 3.8 MMOL/L (3.6-5.0); SODIUM 141 MMOL/L (135-145); TOTAL PROTEIN 5.5 GM/DL (6.4-8.2)
[~2020-03-13 08:46] MED LIST changes: -ONDA8TAB12 PO; +ONDA8TAB15 PO
[2020-03-13 08:59] LABS: BASOPHILS % (AUTO) 0 % (0-10); EOSINOPHILS # (AUTO) 0.1 10^3/uL (0.0-0.3); EOSINOPHILS % (AUTO) 1 % (0-10); HEMATOCRIT 38 % (40-54); HEMOGLOBIN 12.7 G/DL (13.3-17.7); LYMPHOCYTES # (AUTO) 1.5 X 10^3 (1.0-4.0); LYMPHOCYTES % (AUTO) 22 % (12-44); MEAN CORPUSCULAR HEMOGLOBIN 27 PG (25-34); MEAN CORPUSCULAR HGB CONC 33 G/DL (32-36); MEAN CORPUSCULAR VOLUME 82 FL (80-99); MEAN PLATELET VOLUME 8.8 FL (7.4-10.4); MONOCYTES % (AUTO) 14 % (0-12); NEUTROPHILS # (AUTO) 4.3 X 10^3 (1.8-7.8); NEUTROPHILS % (AUTO) 62 % (42-75); PLATELET COUNT 124 10^3/uL (130-400); RED CELL DISTRIBUTION WIDTH 19.2 % (10.0-14.5); WHITE BLOOD COUNT 6.8 10^3/uL (4.3-11.0)
[2020-03-13 09:16] LABS: ALBUMIN 3.8 GM/DL (3.2-4.5); CHLORIDE 108 MMOL/L (98-107); POTASSIUM 4.5 MMOL/L (3.6-5.0); SODIUM 141 MMOL/L (135-145)
[2020-03-13 09:17] LABS: CALCIUM 8.6 MG/DL (8.5-10.1)
[2020-03-13 09:18] LABS: GLUCOSE 96 MG/DL (70-105); TOTAL PROTEIN 5.9 GM/DL (6.4-8.2)
[2020-03-13 09:19] LABS: CARBON DIOXIDE 24 MMOL/L (21-32)
[2020-03-13 09:20] LABS: BILIRUBIN,TOTAL 0.7 MG/DL (0.1-1.0)
[2020-03-13 09:22] LABS: ALKALINE PHOSPHATASE 54 U/L (40-136); CREATININE SERUM 0.81 MG/DL (0.60-1.30); GFR ESTIMATED > 60
[2020-03-13 09:23] LABS: BUN/CREATININE RATIO 11
[2020-03-13 09:25] LABS: ALANINE AMINOTRANSFERASE 13 U/L (0-55)
== END 2020-04-09 | disposition home or self-care (01) ==
LOC: ONC 08:46
PROVIDERS: ATTEND Internal Medicine Hematology & Oncology
DX: C90.00 Multiple myeloma not having achieved remission (principal); I48.91 Unspecified atrial fibrillation; E83.52 Hypercalcemia; M89.9 Disorder of bone, unspecified; D64.9 Anemia, unspecified; K21.9 Gastro-esophageal reflux disease without esophagitis; D70.9 Neutropenia, unspecified; D69.6 Thrombocytopenia, unspecified; Z79.899 Other long term (current) drug therapy
CPT/HCPCS: 80053; 85025; 99213

== ENCOUNTER → 2020-04-10 | Outpatient (CLI) | payer MEDICARE, OTHER ==
[~2020-04-10] MED LIST changes: -ZOLEDRONIC ACID (CANCER CTR) 4 MG in NS (IVPB) CANCER CENTER 100 ML IV SCH
== END ==
LOC: LAB 10:00
PROVIDERS: ATTEND Urology
DX: N40.0 Benign prostatic hyperplasia without lower urinary tract symptoms (principal)
CPT/HCPCS: 36415; 84153

== ENCOUNTER 2020-05-15 05:36 | Outpatient (RCR) | payer MEDICARE, OTHER ==
[~2020-05-15] VITALS: Ht 167.6 cm; Wt 91.1 kg
[~2020-05-15 05:36] MED LIST changes: +BUDE0.5A IH; +DILT240C91 PO; +ROFL500T PO; +RT-ALBUINH INH; +UMEC1BLS IH
== END 2020-05-15 15:09 | disposition home or self-care (01) ==
LOC: PREOP 05:36
PROVIDERS: ATTEND Surgery
DX: Z01.818 Encounter for other preprocedural examination (principal); Z11.59 Encounter for screening for other viral diseases
CPT/HCPCS: 87635

== ENCOUNTER 2020-05-17 10:44 | Day surgery (SDC) | payer MEDICARE, OTHER ==
[2020-05-17] VITALS (11 sets, daily range): BP systolic 108–143; BP diastolic 58–91
[~2020-05-17] VITALS: Ht 167.6 cm; Wt 91.1 kg
[2020-05-17] MEDS ORDERED: NS IV 500 ML 500 ML ONE ×2 (11:02→11:59)
[2020-05-17] MEDS: NS IV 500 ML 500 ML IV PRN ×2 (11:25→12:01)
[2020-05-17] MEDS ORDERED: LIDOCAINE JELLY 2% 6 ML SYRINGE MM PRN (11:30)
[2020-05-17] MEDS ORDERED: fentaNYL INJECTION 100 MCG/2 ML AMP IVP ONE (11:30)
--- NOTE | 2020-05-17 12:02 | Conscious Sedation/ASA ---
Conscious Sedation Pre-Proced Time 11:30 ASA Score 2 For ASA 3 and 4: Consider anesthesia and medical clearance. Also, for patients with a history of failed moderate sedation consider anesthesia. Airway Lungs Heart ASA score ASA 1: a normal healthy patient ASA 2: a patient with a mild systemic disease (mid diabetes, controlled hypertension, obesity ASA 3: a patient with a severe systemic disease that limits activity (angina, COPD, prior Myocardial infarction) ASA 4: a patient with an incapacitating disease that is a constant threat to life (CHF, renal failure) ASA 5: a moribund patient not expected to survive 24 hrs. (ruptured aneurysm) ASA 6: a declared brain- patient whose organs are being harvested. For emergent operations, add the letter E after the classification Mallampati Classification Grade 2 Sedation Plan Analgesia, Amnesia, Plan communicated to team members, Discussed options with patient/fam, Discussed risks with patient/fam The patient is an appropriate candidate to undergo the planned procedure, sedation, and anesthesia. The patient immediately re-assessed prior to indication. JOEL GARCIA MD May 17, 2020 12:02
--- NOTE | 2020-05-17 12:02 | Progress Note-Pre Operative ---
Pre-Operative Progress Note H&P Reviewed The H&P was reviewed, patient examined and no changes noted. Date Seen by Provider: May 17, 2020 Time Seen by Provider: 11:30 Date H&P Reviewed: May 17, 2020 Time H&P Reviewed: 11:30 Pre-Operative Diagnosis: screening JOEL Weiner MD May 17, 2020 12:02
--- NOTE | 2020-05-17 12:04 | Discharge Inst-Surgical ---
D/C Lap Instructions-RADHA Follow Up Activity as tolerated High Fiber Diet 25g or more per day Avoid Alcohol, Caffeine, Spicy [place] and Acid foods. Drink 64 fluid oz or more of fluids per day. Symptoms to Report: Fever over 101 degree F, Nausea/Vomiting If any problems/questions: Contact your physician or go to Emergency Room JOEL GARCIA MD May 17, 2020 12:04
[2020-05-17] MEDS ORDERED: ONDANSETRON 4 MG/2 ML (SDV) Z0FRAN IVP PRN (12:15)
[2020-05-17] MEDS ORDERED: morphine INJ 10 MG/ML 1ML (SYR OR VIAL) IVP PRN ×2 (12:15)
[2020-05-17] MEDS ORDERED: ACETAMINOPHEN 325 MG TABLET PO PRN (12:15)
[2020-05-17] MEDS ORDERED: HYDROcodone/APAP 5 MG/325 MG (LORTAB) TAB PO PRN (12:15)
[2020-05-17] MEDS ORDERED: fentaNYL INJECTION 100 MCG/2 ML AMP ONE (14:39)
[2020-05-17] MEDS ORDERED: LIDOCAINE JELLY 2% 6 ML SYRINGE ONE (14:39)
[2020-05-17] MEDS ORDERED: MIDAZOLAM 5 MG/5 ML (VERSED) VIAL ONE ×2 (14:39)
[2020-05-17] MEDS: MIDAZOLAM 5 MG/5 ML (VERSED) VIAL IV PRN ×3 (14:40→14:52)
--- NOTE | 2020-05-17 15:16 | Progress Note-Post Operative ---
Post-Operative Progess Note Surgeon (s)/Auto Parker (s) Surgeon JOEL GARCIA MD Auto Parker: none Pre-Operative Diagnosis screening colo Post-Operative Diagnosis chronic stage 2 ext and int hemorrhoids, mild sigmoid diverticulosis, small polyp splenic flexure. Procedure & Operative Findings Date of Procedure 05/17/20 Procedure Performed/Findings colonoscopy with bx. Anesthesia Type cs Estimated Blood Loss Estimated blood loss (mL): minimal Specimens/Packing Specimens Removed splenic flex polyp JOEL GACRIA MD May 17, 2020 15:16
--- NOTE | 2020-05-17 15:26 | OPERATIVE REPORT ---
DATE OF SERVICE: 05/17/2020 ATTENDING PRIMARY CARE PHYSICIAN: Иван Tillman MD PREOPERATIVE DIAGNOSIS: Hemoccult positive stools. POSTOPERATIVE DIAGNOSES: Chronic stage II external and internal hemorrhoids, mild sigmoid diverticulosis, small polyp of the splenic flexure. PROCEDURE: Colonoscopy with biopsy. SURGEON: Joel Garcia MD ANESTHESIA: Conscious sedation. ESTIMATED BLOOD LOSS: Minimal. FINDINGS: Chronic stage II external and internal hemorrhoids, mild sigmoid diverticulosis, small polyp of the splenic flexure. DISPOSITION: The patient tolerated the procedure well. INDICATION FOR PROCEDURE: The patient is a 69-year-old male referred over to us for Hemoccult positive stools. His last colonoscopy was 3 years ago and believes this to be normal. He does have a history of multiple myeloma and follows oncology and was recently found to have a slightly low hemoglobin 12.5. Hemoccult test was performed, which was positive. He does report alternating episodes of diarrhea and constipation. He does not report any family history of colon cancer. DESCRIPTION OF THE PROCEDURE: The patient was brought to the endoscopy suite, laid in left lateral decubitus position. After adequate IV pain and sedative medications and conscious sedation anesthesia, a digital rectal examination was performed. Mild chronic stage II external and internal hemorrhoids were identified, which were not actively edematous nor inflamed and no bleeding. Normal sphincter tone was felt and there were no palpable masses. Prostate gland was palpable and appeared normal. The endoscope was then intubated to anus and the rectum gently insufflated. The endoscope was then advanced to the valves of Jain of the rectum with no polyps or any neoplasms identified. Through the sigmoid colon, a very mild sigmoid diverticulosis identified. The endoscope was then advanced to the remainder of the descending colon to the hepatic flexure where a small polyp approximately 2 to 3 mm in size was identified. This was biopsied and destroyed using forceps and electrocautery with visualization of good hemostasis. The endoscope was then advanced through the transverse colon and ascending colon to the cecum and these segments were normal. The endoscope was then slowly withdrawn while taking a second look and suctioning residual air with no additional findings. The patient tolerated the procedure well. The most likely due to a benign issue likely hemorrhoids. We will recommend a high fiber diet with 30 grams of fiber daily as well as significant amounts of water to promote soft stools on a daily basis. He does not have any family history of colon cancer and he may wait 10 years for his next colonoscopy; however, sooner if he becomes symptomatic. Job ID: [id number] DocumentID: [id number] Dictated Date: 05/17/2020 15:03:11 Meat Products Demonstrator Date: 05/17/2020 15:25:36 Dictated By: JOEL GARCIA MD
== END 2020-05-17 16:20 | disposition home or self-care (01) ==
LOC: ENDO 10:44
PROVIDERS: ATTEND Surgery
DX: D12.3 Benign neoplasm of transverse colon (principal); K57.30 Diverticulosis of large intestine without perforation or abscess without bleeding; K64.1 Second degree hemorrhoids; K64.8 Other hemorrhoids; N40.0 Benign prostatic hyperplasia without lower urinary tract symptoms; I10 Essential (primary) hypertension; K21.9 Gastro-esophageal reflux disease without esophagitis; D64.9 Anemia, unspecified; J44.9 Chronic obstructive pulmonary disease, unspecified; F41.9 Anxiety disorder, unspecified; C90.00 Multiple myeloma not having achieved remission; Z87.891 Personal history of nicotine dependence; Z88.0 Allergy status to penicillin; Z88.1 Allergy status to other antibiotic agents

== ENCOUNTER 2020-06-06 08:42 | Outpatient (RCR) | payer MEDICARE, OTHER ==
[2020-04-10 09:58] LABS: BASOPHILS # (AUTO) 0.1 10^3/uL (0.0-0.1); BASOPHILS % (AUTO) 1 % (0-10); EOSINOPHILS % (AUTO) 1 % (0-10); HEMATOCRIT 39 % (40-54); HEMOGLOBIN 12.7 G/DL (13.3-17.7); LYMPHOCYTES # (AUTO) 1.8 X 10^3 (1.0-4.0); LYMPHOCYTES % (AUTO) 35 % (12-44); MEAN CORPUSCULAR HEMOGLOBIN 28 PG (25-34); MEAN CORPUSCULAR HGB CONC 33 G/DL (32-36); MEAN CORPUSCULAR VOLUME 84 FL (80-99); MEAN PLATELET VOLUME 8.2 FL (7.4-10.4); MONOCYTES % (AUTO) 19 % (0-12); NEUTROPHILS # (AUTO) 2.3 X 10^3 (1.8-7.8); NEUTROPHILS % (AUTO) 44 % (42-75); PLATELET COUNT 130 10^3/uL (130-400); RED CELL DISTRIBUTION WIDTH 17.7 % (10.0-14.5); WHITE BLOOD COUNT 5.1 10^3/uL (4.3-11.0)
[2020-04-10 10:20] LABS: ALANINE AMINOTRANSFERASE 17 U/L (0-55); ALBUMIN 3.9 GM/DL (3.2-4.5); ALKALINE PHOSPHATASE 54 U/L (40-136); BILIRUBIN,TOTAL 0.8 MG/DL (0.1-1.0); BUN/CREATININE RATIO 10; CALCIUM 8.8 MG/DL (8.5-10.1); CARBON DIOXIDE 23 MMOL/L (21-32); CHLORIDE 108 MMOL/L (98-107); CREATININE SERUM 0.84 MG/DL (0.60-1.30); GFR ESTIMATED > 60; GLUCOSE 98 MG/DL (70-105); POTASSIUM 3.6 MMOL/L (3.6-5.0); SODIUM 142 MMOL/L (135-145); TOTAL PROTEIN 5.8 GM/DL (6.4-8.2)
[2020-05-08 09:26] LABS: BASOPHILS % (AUTO) 1 % (0-10); EOSINOPHILS # (AUTO) 0.1 10^3/uL (0.0-0.3); EOSINOPHILS % (AUTO) 1 % (0-10); HEMATOCRIT 37 % (40-54); HEMOGLOBIN 12.5 G/DL (13.3-17.7); LYMPHOCYTES # (AUTO) 1.6 X 10^3 (1.0-4.0); LYMPHOCYTES % (AUTO) 29 % (12-44); MEAN CORPUSCULAR HEMOGLOBIN 28 PG (25-34); MEAN CORPUSCULAR HGB CONC 34 G/DL (32-36); MEAN CORPUSCULAR VOLUME 84 FL (80-99); MEAN PLATELET VOLUME 8.9 FL (7.4-10.4); MONOCYTES # (AUTO) 1.2 X 10^3 (0.0-1.0); MONOCYTES % (AUTO) 22 % (0-12); NEUTROPHILS # (AUTO) 2.7 X 10^3 (1.8-7.8); NEUTROPHILS % (AUTO) 48 % (42-75); PLATELET COUNT 137 10^3/uL (130-400); WHITE BLOOD COUNT 5.6 10^3/uL (4.3-11.0)
[2020-05-08 09:44] LABS: ALANINE AMINOTRANSFERASE 14 U/L (0-55); ALBUMIN 3.6 GM/DL (3.2-4.5); ALKALINE PHOSPHATASE 58 U/L (40-136); BILIRUBIN,TOTAL 0.9 MG/DL (0.1-1.0); BUN/CREATININE RATIO 11; CALCIUM 8.5 MG/DL (8.5-10.1); CARBON DIOXIDE 24 MMOL/L (21-32); CHLORIDE 107 MMOL/L (98-107); CREATININE SERUM 0.97 MG/DL (0.60-1.30); GFR ESTIMATED > 60; GLUCOSE 93 MG/DL (70-105); POTASSIUM 3.6 MMOL/L (3.6-5.0); SODIUM 139 MMOL/L (135-145); TOTAL PROTEIN 4.6 GM/DL (6.4-8.2)
[~2020-06-06 08:42] MED LIST changes: +ZOLEDRONIC ACID (CANCER CTR) 4 MG in NS (IVPB) CANCER CENTER 100 ML IV SCH
== END 2020-07-09 | disposition home or self-care (01) ==
LOC: ONC 08:42
PROVIDERS: ATTEND Internal Medicine Hematology & Oncology
DX: C90.00 Multiple myeloma not having achieved remission (principal); I48.91 Unspecified atrial fibrillation; E83.52 Hypercalcemia; M89.9 Disorder of bone, unspecified; D64.9 Anemia, unspecified; K21.9 Gastro-esophageal reflux disease without esophagitis; D70.9 Neutropenia, unspecified; D69.6 Thrombocytopenia, unspecified; I10 Essential (primary) hypertension; J44.9 Chronic obstructive pulmonary disease, unspecified; M54.6 Pain in thoracic spine; Z98.890 Other specified postprocedural states; Z87.311 Personal history of (healed) other pathological fracture; Z79.899 Other long term (current) drug therapy
CPT/HCPCS: 80053; 85025; 96365; G0463; 99213

== ENCOUNTER 2020-09-25 12:56 | Outpatient (RCR) | payer MEDICARE, OTHER ==
[2020-07-10 09:01] LABS: BASOPHILS # (AUTO) 0.1 10^3/uL (0.0-0.1); BASOPHILS % (AUTO) 2 % (0-10); EOSINOPHILS # (AUTO) 0.1 10^3/uL (0.0-0.3); EOSINOPHILS % (AUTO) 3 % (0-10); HEMATOCRIT 37 % (40-54); HEMOGLOBIN 12.1 G/DL (13.3-17.7); LYMPHOCYTES # (AUTO) 1.5 X 10^3 (1.0-4.0); LYMPHOCYTES % (AUTO) 32 % (12-44); MEAN CORPUSCULAR HEMOGLOBIN 27 PG (25-34); MEAN CORPUSCULAR HGB CONC 33 G/DL (32-36); MEAN CORPUSCULAR VOLUME 81 FL (80-99); MEAN PLATELET VOLUME 9.3 FL (7.4-10.4); MONOCYTES # (AUTO) 0.6 X 10^3 (0.0-1.0); MONOCYTES % (AUTO) 13 % (0-12); NEUTROPHILS # (AUTO) 2.3 X 10^3 (1.8-7.8); NEUTROPHILS % (AUTO) 50 % (42-75); PLATELET COUNT 161 10^3/uL (130-400); WHITE BLOOD COUNT 4.7 10^3/uL (4.3-11.0)
[2020-07-10 09:23] LABS: ALANINE AMINOTRANSFERASE 10 U/L (0-55); ALBUMIN 3.9 GM/DL (3.2-4.5); ALKALINE PHOSPHATASE 51 U/L (40-136); BILIRUBIN,TOTAL 0.7 MG/DL (0.1-1.0); BUN/CREATININE RATIO 10; CALCIUM 8.6 MG/DL (8.5-10.1); CARBON DIOXIDE 23 MMOL/L (21-32); CHLORIDE 108 MMOL/L (98-107); CREATININE SERUM 0.73 MG/DL (0.60-1.30); GFR ESTIMATED > 60; GLUCOSE 100 MG/DL (70-105); POTASSIUM 3.7 MMOL/L (3.6-5.0); SODIUM 139 MMOL/L (135-145); TOTAL PROTEIN 5.7 GM/DL (6.4-8.2)
[2020-07-31 09:01] LABS: BASOPHILS % (AUTO) 0 % (0-10); EOSINOPHILS # (AUTO) 0.2 10^3/uL (0.0-0.3); EOSINOPHILS % (AUTO) 3 % (0-10); HEMATOCRIT 39 % (40-54); HEMOGLOBIN 12.5 G/DL (13.3-17.7); LYMPHOCYTES # (AUTO) 1.6 X 10^3 (1.0-4.0); LYMPHOCYTES % (AUTO) 31 % (12-44); MEAN CORPUSCULAR HGB CONC 33 G/DL (32-36); MEAN CORPUSCULAR VOLUME 78 FL (80-99); MEAN PLATELET VOLUME 9.5 FL (7.4-10.4); MONOCYTES # (AUTO) 0.6 X 10^3 (0.0-1.0); MONOCYTES % (AUTO) 13 % (0-12); NEUTROPHILS # (AUTO) 2.7 X 10^3 (1.8-7.8); NEUTROPHILS % (AUTO) 54 % (42-75); PLATELET COUNT 136 10^3/uL (130-400); WHITE BLOOD COUNT 5.1 10^3/uL (4.3-11.0)
[2020-07-31 09:03] LABS: MEAN CORPUSCULAR HEMOGLOBIN 25 PG (25-34)
[2020-07-31 09:25] LABS: ALANINE AMINOTRANSFERASE 12 U/L (0-55); ALBUMIN 3.9 GM/DL (3.2-4.5); ALKALINE PHOSPHATASE 62 U/L (40-136); BILIRUBIN,TOTAL 0.7 MG/DL (0.1-1.0); BUN/CREATININE RATIO 6; CALCIUM 8.9 MG/DL (8.5-10.1); CARBON DIOXIDE 23 MMOL/L (21-32); CHLORIDE 106 MMOL/L (98-107); CREATININE SERUM 0.78 MG/DL (0.60-1.30); GFR ESTIMATED > 60; GLUCOSE 98 MG/DL (70-105); POTASSIUM 3.3 MMOL/L (3.6-5.0); SODIUM 140 MMOL/L (135-145); TOTAL PROTEIN 5.7 GM/DL (6.4-8.2)
[2020-08-28 08:55] LABS: BASOPHILS # (AUTO) 0.2 10^3/uL (0.0-0.1); BASOPHILS % (AUTO) 3 % (0-10); EOSINOPHILS # (AUTO) 0.1 10^3/uL (0.0-0.3); EOSINOPHILS % (AUTO) 1 % (0-10); HEMATOCRIT 40 % (40-54); HEMOGLOBIN 12.7 g/dL (13.3-17.7); LYMPHOCYTES # (AUTO) 1.9 10^3/uL (1.0-4.0); LYMPHOCYTES % (AUTO) 37 % (12-44); MEAN CORPUSCULAR HEMOGLOBIN 25 pg (25-34); MEAN CORPUSCULAR HGB CONC 32 g/dL (32-36); MEAN CORPUSCULAR VOLUME 79 fL (80-99); MONOCYTES # (AUTO) 0.8 10^3/uL (0.0-1.0); MONOCYTES % (AUTO) 15 % (0-12); NEUTROPHILS # (AUTO) 2.1 10^3/uL (1.8-7.8); NEUTROPHILS % (AUTO) 42 % (42-75); PLATELET COUNT 155 10^3/uL (130-400); WHITE BLOOD COUNT 4.9 10^3/uL (4.3-11.0)
[2020-08-28 09:26] LABS: ALANINE AMINOTRANSFERASE 9 U/L (0-55); ALBUMIN 3.9 GM/DL (3.2-4.5); ALKALINE PHOSPHATASE 61 U/L (40-136); BILIRUBIN,TOTAL 0.7 MG/DL (0.1-1.0); BUN/CREATININE RATIO 9; CALCIUM 8.6 MG/DL (8.5-10.1); CARBON DIOXIDE 23 MMOL/L (21-32); CHLORIDE 107 MMOL/L (98-107); CREATININE SERUM 0.76 MG/DL (0.60-1.30); GFR ESTIMATED > 60; GLUCOSE 99 MG/DL (70-105); POTASSIUM 3.4 MMOL/L (3.6-5.0); SODIUM 139 MMOL/L (135-145); TOTAL PROTEIN 5.9 GM/DL (6.4-8.2)
[~2020-09-25 12:56] MED LIST changes: -LISI1TAB25 PO; +LISI1TAB46 PO; -PANT40TA3 PO; +PANT40TA52 PO
[2020-09-25 13:14] LABS: BASOPHILS # (AUTO) 0.1 10^3/uL (0.0-0.1); BASOPHILS % (AUTO) 2 % (0-10); EOSINOPHILS # (AUTO) 0.2 10^3/uL (0.0-0.3); EOSINOPHILS % (AUTO) 4 % (0-10); HEMATOCRIT 40 % (40-54); LYMPHOCYTES # (AUTO) 1.5 10^3/uL (1.0-4.0); LYMPHOCYTES % (AUTO) 32 % (12-44); MEAN CORPUSCULAR HEMOGLOBIN 25 pg (25-34); MEAN CORPUSCULAR HGB CONC 32 g/dL (32-36); MEAN CORPUSCULAR VOLUME 77 fL (80-99); MEAN PLATELET VOLUME 9.1 fL (9.0-12.2); MONOCYTES # (AUTO) 0.6 10^3/uL (0.0-1.0); MONOCYTES % (AUTO) 13 % (0-12); NEUTROPHILS # (AUTO) 2.3 10^3/uL (1.8-7.8); NEUTROPHILS % (AUTO) 49 % (42-75); PLATELET COUNT 166 10^3/uL (130-400); WHITE BLOOD COUNT 4.8 10^3/uL (4.3-11.0)
[2020-09-25 13:37] LABS: ALANINE AMINOTRANSFERASE 8 U/L (0-55); ALKALINE PHOSPHATASE 64 U/L (40-136); BILIRUBIN,TOTAL 0.8 MG/DL (0.1-1.0); BUN/CREATININE RATIO 8; CALCIUM 8.7 MG/DL (8.5-10.1); CARBON DIOXIDE 24 MMOL/L (21-32); CHLORIDE 108 MMOL/L (98-107); CREATININE SERUM 0.74 MG/DL (0.60-1.30); GFR ESTIMATED > 60; GLUCOSE 99 MG/DL (70-105); POTASSIUM 3.5 MMOL/L (3.6-5.0); SODIUM 141 MMOL/L (135-145); TOTAL PROTEIN 6.1 GM/DL (6.4-8.2)
== END 2020-10-08 | disposition home or self-care (01) ==
LOC: ONC 12:56
PROVIDERS: ATTEND Internal Medicine Hematology & Oncology
DX: C90.00 Multiple myeloma not having achieved remission (principal); I48.91 Unspecified atrial fibrillation; E83.52 Hypercalcemia; M89.9 Disorder of bone, unspecified; D64.9 Anemia, unspecified; K21.9 Gastro-esophageal reflux disease without esophagitis; D70.9 Neutropenia, unspecified; D69.6 Thrombocytopenia, unspecified; I10 Essential (primary) hypertension; J44.9 Chronic obstructive pulmonary disease, unspecified; M54.6 Pain in thoracic spine; Z98.890 Other specified postprocedural states; Z87.311 Personal history of (healed) other pathological fracture; Z79.899 Other long term (current) drug therapy
CPT/HCPCS: 80053; 85025; G0463; 99213

== ENCOUNTER 2020-10-23 09:01 | Outpatient (RCR) | payer MEDICARE, OTHER ==
[2020-10-23 09:29] LABS: BASOPHILS # (AUTO) 0.1 10^3/uL (0.0-0.1); BASOPHILS % (AUTO) 3 % (0-10); EOSINOPHILS # (AUTO) 0.1 10^3/uL (0.0-0.3); EOSINOPHILS % (AUTO) 2 % (0-10); HEMATOCRIT 39 % (40-54); HEMOGLOBIN 12.5 g/dL (13.3-17.7); LYMPHOCYTES # (AUTO) 1.4 10^3/uL (1.0-4.0); LYMPHOCYTES % (AUTO) 33 % (12-44); MEAN CORPUSCULAR HEMOGLOBIN 25 pg (25-34); MEAN CORPUSCULAR HGB CONC 32 g/dL (32-36); MEAN CORPUSCULAR VOLUME 77 fL (80-99); MEAN PLATELET VOLUME 8.8 fL (9.0-12.2); MONOCYTES # (AUTO) 0.7 10^3/uL (0.0-1.0); MONOCYTES % (AUTO) 17 % (0-12); NEUTROPHILS # (AUTO) 1.9 10^3/uL (1.8-7.8); NEUTROPHILS % (AUTO) 45 % (42-75); PLATELET COUNT 147 10^3/uL (130-400); WHITE BLOOD COUNT 4.2 10^3/uL (4.3-11.0)
[2020-10-23 09:51] LABS: ALANINE AMINOTRANSFERASE 9 U/L (0-55); ALBUMIN 3.8 GM/DL (3.2-4.5); ALKALINE PHOSPHATASE 61 U/L (40-136); BILIRUBIN,TOTAL 0.9 MG/DL (0.1-1.0); BUN/CREATININE RATIO 9; CALCIUM 8.6 MG/DL (8.5-10.1); CARBON DIOXIDE 23 MMOL/L (21-32); CHLORIDE 108 MMOL/L (98-107); CREATININE SERUM 0.76 MG/DL (0.60-1.30); GFR ESTIMATED > 60; GLUCOSE 97 MG/DL (70-105); POTASSIUM 3.3 MMOL/L (3.6-5.0); SODIUM 141 MMOL/L (135-145); TOTAL PROTEIN 5.8 GM/DL (6.4-8.2)
== END 2020-12-08 09:51 | disposition home or self-care (01) ==
LOC: ONC 09:01
PROVIDERS: ATTEND Internal Medicine Hematology & Oncology
DX: Z51.11 Encounter for antineoplastic chemotherapy (principal); C90.00 Multiple myeloma not having achieved remission; I48.91 Unspecified atrial fibrillation; E83.52 Hypercalcemia; M89.9 Disorder of bone, unspecified; D64.9 Anemia, unspecified; K21.9 Gastro-esophageal reflux disease without esophagitis; D70.9 Neutropenia, unspecified; D69.6 Thrombocytopenia, unspecified; I10 Essential (primary) hypertension; J44.9 Chronic obstructive pulmonary disease, unspecified; M54.6 Pain in thoracic spine; D61.810 Antineoplastic chemotherapy induced pancytopenia; Z98.890 Other specified postprocedural states; Z87.311 Personal history of (healed) other pathological fracture; Z79.899 Other long term (current) drug therapy
CPT/HCPCS: 80053; 85025; 96365; G0463; 36415

== ENCOUNTER 2021-02-12 09:06 | Outpatient (RCR) | payer MEDICARE, OTHER ==
[2020-12-18 09:18] LABS: BASOPHILS # (AUTO) 0.1 10^3/uL (0.0-0.1); BASOPHILS % (AUTO) 3 % (0-10); EOSINOPHILS # (AUTO) 0.1 10^3/uL (0.0-0.3); EOSINOPHILS % (AUTO) 3 % (0-10); HEMATOCRIT 41 % (40-54); HEMOGLOBIN 13.4 g/dL (13.3-17.7); LYMPHOCYTES # (AUTO) 1.6 10^3/uL (1.0-4.0); LYMPHOCYTES % (AUTO) 34 % (12-44); MEAN CORPUSCULAR HEMOGLOBIN 25 pg (25-34); MEAN CORPUSCULAR HGB CONC 32 g/dL (32-36); MEAN CORPUSCULAR VOLUME 79 fL (80-99); MEAN PLATELET VOLUME 8.2 fL (9.0-12.2); MONOCYTES # (AUTO) 0.7 10^3/uL (0.0-1.0); MONOCYTES % (AUTO) 14 % (0-12); NEUTROPHILS # (AUTO) 2.3 10^3/uL (1.8-7.8); NEUTROPHILS % (AUTO) 47 % (42-75); PLATELET COUNT 123 10^3/uL (130-400); WHITE BLOOD COUNT 4.8 10^3/uL (4.3-11.0)
[2020-12-18 09:41] LABS: ALANINE AMINOTRANSFERASE 14 U/L (0-55); ALBUMIN 3.8 GM/DL (3.2-4.5); ALKALINE PHOSPHATASE 56 U/L (40-136); BILIRUBIN,TOTAL 0.6 MG/DL (0.1-1.0); BUN/CREATININE RATIO 11; CALCIUM 8.6 MG/DL (8.5-10.1); CARBON DIOXIDE 22 MMOL/L (21-32); CHLORIDE 109 MMOL/L (98-107); CREATININE SERUM 0.76 MG/DL (0.60-1.30); GFR ESTIMATED > 60; GLUCOSE 95 MG/DL (70-105); POTASSIUM 3.9 MMOL/L (3.6-5.0); SODIUM 139 MMOL/L (135-145); TOTAL PROTEIN 5.9 GM/DL (6.4-8.2)
[~2021-02-12 09:06] MED LIST changes: +ACYC-112 PO; -ACYC800T PO; -LISI-552 PO; +LISI20TA26 PO; -ZOLEDRONIC ACID (CANCER CTR) 4 MG in NS (IVPB) CANCER CENTER 100 ML IV SCH
[2021-02-12 09:26] LABS: BASOPHILS # (AUTO) 0.2 10^3/uL (0.0-0.1); BASOPHILS % (AUTO) 3 % (0-10); EOSINOPHILS # (AUTO) 0.1 10^3/uL (0.0-0.3); EOSINOPHILS % (AUTO) 3 % (0-10); HEMATOCRIT 43 % (40-54); HEMOGLOBIN 14.2 g/dL (13.3-17.7); LYMPHOCYTES # (AUTO) 1.4 10^3/uL (1.0-4.0); LYMPHOCYTES % (AUTO) 27 % (12-44); MEAN CORPUSCULAR HEMOGLOBIN 26 pg (25-34); MEAN CORPUSCULAR HGB CONC 33 g/dL (32-36); MEAN CORPUSCULAR VOLUME 79 fL (80-99); MEAN PLATELET VOLUME 8.7 fL (9.0-12.2); MONOCYTES # (AUTO) 0.7 10^3/uL (0.0-1.0); MONOCYTES % (AUTO) 14 % (0-12); NEUTROPHILS # (AUTO) 2.8 10^3/uL (1.8-7.8); NEUTROPHILS % (AUTO) 53 % (42-75); PLATELET COUNT 131 10^3/uL (130-400); WHITE BLOOD COUNT 5.3 10^3/uL (4.3-11.0)
[2021-02-12 09:46] LABS: ALANINE AMINOTRANSFERASE 18 U/L (0-55); ALBUMIN 3.9 GM/DL (3.2-4.5); ALKALINE PHOSPHATASE 60 U/L (40-136); BUN/CREATININE RATIO 9; CALCIUM 8.5 MG/DL (8.5-10.1); CARBON DIOXIDE 23 MMOL/L (21-32); CHLORIDE 107 MMOL/L (98-107); CREATININE SERUM 0.76 MG/DL (0.60-1.30); GFR ESTIMATED > 60; GLUCOSE 96 MG/DL (70-105); POTASSIUM 3.9 MMOL/L (3.6-5.0); SODIUM 138 MMOL/L (135-145)
== END 2021-03-18 | disposition home or self-care (01) ==
LOC: ONC 09:06
PROVIDERS: ATTEND Internal Medicine Hematology & Oncology
DX: Z51.11 Encounter for antineoplastic chemotherapy (principal); C90.00 Multiple myeloma not having achieved remission; I48.91 Unspecified atrial fibrillation; E83.52 Hypercalcemia; M89.9 Disorder of bone, unspecified; D64.9 Anemia, unspecified; K21.9 Gastro-esophageal reflux disease without esophagitis; D70.9 Neutropenia, unspecified; D69.6 Thrombocytopenia, unspecified; I10 Essential (primary) hypertension; J44.9 Chronic obstructive pulmonary disease, unspecified; M54.6 Pain in thoracic spine; D61.810 Antineoplastic chemotherapy induced pancytopenia; Z98.890 Other specified postprocedural states; Z87.311 Personal history of (healed) other pathological fracture; Z79.899 Other long term (current) drug therapy
CPT/HCPCS: 80053; 85025; G0463; 99213

== ENCOUNTER 2021-06-05 08:44 | Outpatient (RCR) | payer MEDICARE, OTHER ==
[2021-04-09 09:28] LABS: BASOPHILS % (AUTO) 0 % (0-10); EOSINOPHILS % (AUTO) 0 % (0-10); HEMATOCRIT 46 % (40-54); HEMOGLOBIN 14.9 g/dL (13.3-17.7); LYMPHOCYTES # (AUTO) 0.7 10^3/uL (1.0-4.0); LYMPHOCYTES % (AUTO) 10 % (12-44); MEAN CORPUSCULAR HEMOGLOBIN 26 pg (25-34); MEAN CORPUSCULAR HGB CONC 32 g/dL (32-36); MEAN CORPUSCULAR VOLUME 82 fL (80-99); MEAN PLATELET VOLUME 8.9 fL (9.0-12.2); MONOCYTES # (AUTO) 0.3 10^3/uL (0.0-1.0); MONOCYTES % (AUTO) 4 % (0-12); NEUTROPHILS # (AUTO) 5.9 10^3/uL (1.8-7.8); NEUTROPHILS % (AUTO) 84 % (42-75); PLATELET COUNT 156 10^3/uL (130-400)
[2021-04-09 09:51] LABS: ALANINE AMINOTRANSFERASE 22 U/L (0-55); ALKALINE PHOSPHATASE 55 U/L (40-136); BILIRUBIN,TOTAL 1.3 MG/DL (0.1-1.0); BUN/CREATININE RATIO 16; CALCIUM 8.3 MG/DL (8.5-10.1); CARBON DIOXIDE 28 MMOL/L (21-32); CHLORIDE 104 MMOL/L (98-107); CREATININE SERUM 0.81 MG/DL (0.60-1.30); GFR ESTIMATED > 60; GLUCOSE 107 MG/DL (70-105); POTASSIUM 3.8 MMOL/L (3.6-5.0); SODIUM 140 MMOL/L (135-145); TOTAL PROTEIN 5.7 GM/DL (6.4-8.2)
[~2021-06-05 08:44] MED LIST changes: -SULF1TAB35 PO; +SULF1TAB38 PO; +ZOLEDRONIC ACID (CANCER CTR) 4 MG in NS (IVPB) CANCER CENTER 100 ML IV SCH
[2021-06-05 08:56] LABS: BASOPHILS # (AUTO) 0.1 10^3/uL (0.0-0.1); BASOPHILS % (AUTO) 1 % (0-10); EOSINOPHILS % (AUTO) 0 % (0-10); HEMATOCRIT 41 % (40-54); HEMOGLOBIN 13.6 g/dL (13.3-17.7); LYMPHOCYTES # (AUTO) 0.8 10^3/uL (1.0-4.0); LYMPHOCYTES % (AUTO) 12 % (12-44); MEAN CORPUSCULAR HEMOGLOBIN 28 pg (25-34); MEAN CORPUSCULAR HGB CONC 33 g/dL (32-36); MEAN CORPUSCULAR VOLUME 85 fL (80-99); MEAN PLATELET VOLUME 8.6 fL (9.0-12.2); MONOCYTES # (AUTO) 0.4 10^3/uL (0.0-1.0); MONOCYTES % (AUTO) 6 % (0-12); NEUTROPHILS # (AUTO) 4.7 10^3/uL (1.8-7.8); NEUTROPHILS % (AUTO) 75 % (42-75); PLATELET COUNT 121 10^3/uL (130-400); WHITE BLOOD COUNT 6.3 10^3/uL (4.3-11.0)
[2021-06-05 09:18] LABS: ALANINE AMINOTRANSFERASE 27 U/L (0-55); ALBUMIN 3.7 GM/DL (3.2-4.5); ALKALINE PHOSPHATASE 47 U/L (40-136); BILIRUBIN,TOTAL 0.8 MG/DL (0.1-1.0); BUN/CREATININE RATIO 15; CALCIUM 9.1 MG/DL (8.5-10.1); CARBON DIOXIDE 27 MMOL/L (21-32); CHLORIDE 105 MMOL/L (98-107); CREATININE SERUM 0.85 MG/DL (0.60-1.30); GFR ESTIMATED > 60; GLUCOSE 108 MG/DL (70-105); SODIUM 140 MMOL/L (135-145); TOTAL PROTEIN 5.6 GM/DL (6.4-8.2)
== END 2021-07-08 | disposition home or self-care (01) ==
LOC: ONC 08:44
PROVIDERS: ATTEND Internal Medicine Hematology & Oncology
DX: Z51.11 Encounter for antineoplastic chemotherapy (principal); C90.00 Multiple myeloma not having achieved remission; I48.91 Unspecified atrial fibrillation; E83.52 Hypercalcemia; M89.9 Disorder of bone, unspecified; D64.9 Anemia, unspecified; K21.9 Gastro-esophageal reflux disease without esophagitis; D70.9 Neutropenia, unspecified; D69.6 Thrombocytopenia, unspecified; I10 Essential (primary) hypertension; J44.9 Chronic obstructive pulmonary disease, unspecified; M54.6 Pain in thoracic spine; D61.810 Antineoplastic chemotherapy induced pancytopenia; Z98.890 Other specified postprocedural states; Z87.311 Personal history of (healed) other pathological fracture; Z79.899 Other long term (current) drug therapy
CPT/HCPCS: 80053; 85025; 96365; G0463; 36415; 99213

== ENCOUNTER 2021-09-24 10:05 | Outpatient (RCR) | payer MEDICARE, OTHER ==
[2021-07-30 09:12] LABS: MEAN CORPUSCULAR VOLUME 88 fL (80-99); MEAN PLATELET VOLUME 8.9 fL (9.0-12.2); MONOCYTES % (AUTO) 19 % (0-12); NEUTROPHILS % (AUTO) 53 % (42-75)
[2021-07-30 09:13] LABS: BASOPHILS # (AUTO) 0.1 10^3/uL (0.0-0.1); BASOPHILS % (AUTO) 3 % (0-10); EOSINOPHILS # (AUTO) 0.1 10^3/uL (0.0-0.3); EOSINOPHILS % (AUTO) 2 % (0-10); HEMATOCRIT 38 % (40-54); HEMOGLOBIN 12.5 g/dL (13.3-17.7); LYMPHOCYTES # (AUTO) 1.1 10^3/uL (1.0-4.0); LYMPHOCYTES % (AUTO) 24 % (12-44); MEAN CORPUSCULAR HEMOGLOBIN 29 pg (25-34); MEAN CORPUSCULAR HGB CONC 33 g/dL (32-36); MONOCYTES # (AUTO) 0.9 10^3/uL (0.0-1.0); NEUTROPHILS # (AUTO) 2.5 10^3/uL (1.8-7.8); PLATELET COUNT 139 10^3/uL (130-400); WHITE BLOOD COUNT 4.7 10^3/uL (4.3-11.0)
[2021-07-30 09:43] LABS: ALBUMIN 3.6 GM/DL (3.2-4.5); BILIRUBIN,TOTAL 0.8 MG/DL (0.1-1.0); CALCIUM 8.6 MG/DL (8.5-10.1); CREATININE SERUM 0.75 MG/DL (0.60-1.30); POTASSIUM 3.4 MMOL/L (3.6-5.0); TOTAL PROTEIN 5.3 GM/DL (6.4-8.2)
[~2021-09-24 10:05] MED LIST changes: -LISI1TAB29 PO; +LISI1TAB44 PO; +ONDA-106 PO; -ONDA8TAB15 PO; -ZOLEDRONIC ACID (CANCER CTR) 4 MG in NS (IVPB) CANCER CENTER 100 ML IV SCH
[2021-09-24 10:19] LABS: BASOPHILS # (AUTO) 0.1 10^3/uL (0.0-0.1); BASOPHILS % (AUTO) 3 % (0-10); EOSINOPHILS # (AUTO) 0.2 10^3/uL (0.0-0.3); EOSINOPHILS % (AUTO) 4 % (0-10); HEMATOCRIT 39 % (40-54); HEMOGLOBIN 12.5 g/dL (13.3-17.7); LYMPHOCYTES # (AUTO) 1.3 10^3/uL (1.0-4.0); LYMPHOCYTES % (AUTO) 30 % (12-44); MEAN CORPUSCULAR HEMOGLOBIN 25 pg (25-34); MEAN CORPUSCULAR HGB CONC 32 g/dL (32-36); MEAN CORPUSCULAR VOLUME 80 fL (80-99); MONOCYTES # (AUTO) 0.7 10^3/uL (0.0-1.0); MONOCYTES % (AUTO) 17 % (0-12); NEUTROPHILS % (AUTO) 47 % (42-75); PLATELET COUNT 160 10^3/uL (130-400); WHITE BLOOD COUNT 4.2 10^3/uL (4.3-11.0)
[2021-09-24 10:36] LABS: ALBUMIN 3.9 GM/DL (3.2-4.5); BILIRUBIN,TOTAL 0.8 MG/DL (0.1-1.0); CREATININE SERUM 0.72 MG/DL (0.60-1.30); POTASSIUM 3.7 MMOL/L (3.6-5.0); TOTAL PROTEIN 5.9 GM/DL (6.4-8.2)
== END 2021-10-28 | disposition home or self-care (01) ==
LOC: ONC 10:05
PROVIDERS: ATTEND Internal Medicine Hematology & Oncology
DX: C90.00 Multiple myeloma not having achieved remission (principal); D64.9 Anemia, unspecified; E83.52 Hypercalcemia; M89.9 Disorder of bone, unspecified; I10 Essential (primary) hypertension; J44.9 Chronic obstructive pulmonary disease, unspecified; M54.6 Pain in thoracic spine; Z98.890 Other specified postprocedural states; Z79.899 Other long term (current) drug therapy
CPT/HCPCS: 80053; 85025; G0463; 99213

== ENCOUNTER 2021-12-17 09:15 | Outpatient (RCR) | payer MEDICARE, OTHER ==
[2021-12-17 09:26] LABS: BASOPHILS # (AUTO) 0.1 10^3/uL (0.0-0.1); BASOPHILS % (AUTO) 3 % (0-10); EOSINOPHILS # (AUTO) 0.1 10^3/uL (0.0-0.3); EOSINOPHILS % (AUTO) 2 % (0-10); HEMATOCRIT 38 % (40-54); HEMOGLOBIN 12.1 g/dL (13.3-17.7); LYMPHOCYTES # (AUTO) 1.2 10^3/uL (1.0-4.0); LYMPHOCYTES % (AUTO) 30 % (12-44); MEAN CORPUSCULAR HEMOGLOBIN 26 pg (25-34); MEAN CORPUSCULAR HGB CONC 32 g/dL (32-36); MEAN CORPUSCULAR VOLUME 81 fL (80-99); MEAN PLATELET VOLUME 8.8 fL (9.0-12.2); MONOCYTES # (AUTO) 0.8 10^3/uL (0.0-1.0); MONOCYTES % (AUTO) 19 % (0-12); NEUTROPHILS # (AUTO) 1.9 10^3/uL (1.8-7.8); NEUTROPHILS % (AUTO) 47 % (42-75); PLATELET COUNT 134 10^3/uL (130-400); WHITE BLOOD COUNT 4.2 10^3/uL (4.3-11.0)
[2021-12-17 09:47] LABS: BILIRUBIN,TOTAL 1.2 MG/DL (0.1-1.0); CALCIUM 8.9 MG/DL (8.5-10.1); CREATININE SERUM 0.74 MG/DL (0.60-1.30); POTASSIUM 3.6 MMOL/L (3.6-5.0); TOTAL PROTEIN 5.3 GM/DL (6.4-8.2)
== END 2021-12-31 | disposition home or self-care (01) ==
LOC: ONC 09:15
PROVIDERS: ATTEND Internal Medicine Hematology & Oncology
DX: C90.00 Multiple myeloma not having achieved remission (principal); D50.9 Iron deficiency anemia, unspecified; J44.9 Chronic obstructive pulmonary disease, unspecified; E83.52 Hypercalcemia; M89.9 Disorder of bone, unspecified; I10 Essential (primary) hypertension; M54.6 Pain in thoracic spine; E66.9 Obesity, unspecified; Z98.890 Other specified postprocedural states; Z79.899 Other long term (current) drug therapy
CPT/HCPCS: 80053; 85025; G0463; 99213

== ENCOUNTER 2022-03-08 09:25 | Outpatient (RCR) | payer MEDICARE, OTHER ==
[~2022-03-08 09:25] MED LIST changes: +CODE118L3 PO; -GUAI-813 PO
[2022-03-08 09:37] LABS: BASOPHILS # (AUTO) 0.1 10^3/uL (0.0-0.1); BASOPHILS % (AUTO) 2 % (0-10); EOSINOPHILS # (AUTO) 0.1 10^3/uL (0.0-0.3); EOSINOPHILS % (AUTO) 2 % (0-10); HEMATOCRIT 40 % (40-54); HEMOGLOBIN 13.3 g/dL (13.3-17.7); LYMPHOCYTES # (AUTO) 1.4 10^3/uL (1.0-4.0); LYMPHOCYTES % (AUTO) 30 % (12-44); MEAN CORPUSCULAR HEMOGLOBIN 26 pg (25-34); MEAN CORPUSCULAR HGB CONC 33 g/dL (32-36); MEAN CORPUSCULAR VOLUME 80 fL (80-99); MONOCYTES # (AUTO) 0.7 10^3/uL (0.0-1.0); MONOCYTES % (AUTO) 14 % (0-12); NEUTROPHILS # (AUTO) 2.5 10^3/uL (1.8-7.8); NEUTROPHILS % (AUTO) 52 % (42-75); PLATELET COUNT 115 10^3/uL (130-400); WHITE BLOOD COUNT 4.8 10^3/uL (4.3-11.0)
[2022-03-08 09:57] LABS: CALCIUM 8.8 MG/DL (8.5-10.1); CREATININE SERUM 0.79 MG/DL (0.60-1.30); POTASSIUM 3.7 MMOL/L (3.6-5.0); TOTAL PROTEIN 5.5 GM/DL (6.4-8.2)
== END 2022-03-30 | disposition home or self-care (01) ==
LOC: ONC 09:25
PROVIDERS: ATTEND Internal Medicine Hematology & Oncology
DX: C90.00 Multiple myeloma not having achieved remission (principal); D50.9 Iron deficiency anemia, unspecified; J44.9 Chronic obstructive pulmonary disease, unspecified; E83.52 Hypercalcemia; M89.9 Disorder of bone, unspecified; I10 Essential (primary) hypertension; M54.6 Pain in thoracic spine; E66.9 Obesity, unspecified; Z98.890 Other specified postprocedural states; Z79.899 Other long term (current) drug therapy
CPT/HCPCS: 36415; 80053; 85025

== ENCOUNTER 2022-04-08 09:07 | Outpatient (RCR) | payer MEDICARE, OTHER ==
[2022-04-08 09:14] LABS: EOSINOPHILS % (AUTO) 0 % (0-10); HEMOGLOBIN 12.4 g/dL (13.3-17.7)
[2022-04-08 09:16] LABS: BASOPHILS % (AUTO) 1 % (0-10); HEMATOCRIT 37 % (40-54); LYMPHOCYTES # (AUTO) 0.5 10^3/uL (1.0-4.0); LYMPHOCYTES % (AUTO) 7 % (12-44); MEAN CORPUSCULAR HEMOGLOBIN 26 pg (25-34); MEAN CORPUSCULAR HGB CONC 34 g/dL (32-36); MEAN CORPUSCULAR VOLUME 78 fL (80-99); MEAN PLATELET VOLUME 8.8 fL (9.0-12.2); MONOCYTES # (AUTO) 1.2 10^3/uL (0.0-1.0); MONOCYTES % (AUTO) 17 % (0-12); NEUTROPHILS # (AUTO) 5.3 10^3/uL (1.8-7.8); NEUTROPHILS % (AUTO) 75 % (42-75); PLATELET COUNT 112 10^3/uL (130-400); WHITE BLOOD COUNT 7.1 10^3/uL (4.3-11.0)
[2022-04-08 09:36] LABS: ALBUMIN 3.5 GM/DL (3.2-4.5); POTASSIUM 3.3 MMOL/L (3.6-5.0)
[2022-04-08 09:37] LABS: CALCIUM 8.5 MG/DL (8.5-10.1)
[2022-04-08 09:38] LABS: TOTAL PROTEIN 5.5 GM/DL (6.4-8.2)
[2022-04-08 09:40] LABS: BILIRUBIN,TOTAL 1.6 MG/DL (0.1-1.0)
[2022-04-08 09:42] LABS: CREATININE SERUM 0.81 MG/DL (0.60-1.30)
[2022-05-03 09:45] LABS: MEAN CORPUSCULAR HEMOGLOBIN 27 pg (25-34); MEAN CORPUSCULAR HGB CONC 34 g/dL (32-36); MEAN CORPUSCULAR VOLUME 82 fL (80-99)
[2022-05-03 09:47] LABS: BASOPHILS # (AUTO) 0.1 10^3/uL (0.0-0.1); BASOPHILS % (AUTO) 2 % (0-10); EOSINOPHILS # (AUTO) 0.2 10^3/uL (0.0-0.3); EOSINOPHILS % (AUTO) 3 % (0-10); HEMATOCRIT 42 % (40-54); HEMOGLOBIN 14.2 g/dL (13.3-17.7); LYMPHOCYTES # (AUTO) 1.3 10^3/uL (1.0-4.0); LYMPHOCYTES % (AUTO) 23 % (12-44); MEAN PLATELET VOLUME 9.2 fL (9.0-12.2); MONOCYTES # (AUTO) 0.7 10^3/uL (0.0-1.0); MONOCYTES % (AUTO) 12 % (0-12); NEUTROPHILS # (AUTO) 3.4 10^3/uL (1.8-7.8); NEUTROPHILS % (AUTO) 60 % (42-75); PLATELET COUNT 124 10^3/uL (130-400); WHITE BLOOD COUNT 5.7 10^3/uL (4.3-11.0)
[2022-05-03 10:04] LABS: ALBUMIN 3.8 GM/DL (3.2-4.5); BILIRUBIN,TOTAL 1.3 MG/DL (0.1-1.0); CREATININE SERUM 0.77 MG/DL (0.60-1.30); TOTAL PROTEIN 5.6 GM/DL (6.4-8.2)
== END 2022-04-30 | disposition home or self-care (01) ==
LOC: ONC 09:07
PROVIDERS: ATTEND Internal Medicine Hematology & Oncology
DX: C90.00 Multiple myeloma not having achieved remission (principal); D50.9 Iron deficiency anemia, unspecified; J44.9 Chronic obstructive pulmonary disease, unspecified; M89.9 Disorder of bone, unspecified; I10 Essential (primary) hypertension; M54.6 Pain in thoracic spine; I48.91 Unspecified atrial fibrillation; K21.9 Gastro-esophageal reflux disease without esophagitis; E21.3 Hyperparathyroidism, unspecified; E66.9 Obesity, unspecified; Z98.890 Other specified postprocedural states; Z79.899 Other long term (current) drug therapy
CPT/HCPCS: 36415; 80053; 85025

== ENCOUNTER 2022-05-03 09:33 | Outpatient (RCR) | payer MEDICARE, OTHER ==
[2022-05-03 09:45] LABS: MEAN CORPUSCULAR HEMOGLOBIN 27 pg (25-34); MEAN CORPUSCULAR HGB CONC 34 g/dL (32-36); MEAN CORPUSCULAR VOLUME 82 fL (80-99)
[2022-05-03 09:47] LABS: BASOPHILS # (AUTO) 0.1 10^3/uL (0.0-0.1); BASOPHILS % (AUTO) 2 % (0-10); EOSINOPHILS # (AUTO) 0.2 10^3/uL (0.0-0.3); EOSINOPHILS % (AUTO) 3 % (0-10); HEMATOCRIT 42 % (40-54); HEMOGLOBIN 14.2 g/dL (13.3-17.7); LYMPHOCYTES # (AUTO) 1.3 10^3/uL (1.0-4.0); LYMPHOCYTES % (AUTO) 23 % (12-44); MEAN PLATELET VOLUME 9.2 fL (9.0-12.2); MONOCYTES # (AUTO) 0.7 10^3/uL (0.0-1.0); MONOCYTES % (AUTO) 12 % (0-12); NEUTROPHILS # (AUTO) 3.4 10^3/uL (1.8-7.8); NEUTROPHILS % (AUTO) 60 % (42-75); PLATELET COUNT 124 10^3/uL (130-400); WHITE BLOOD COUNT 5.7 10^3/uL (4.3-11.0)
[2022-05-03 10:04] LABS: ALBUMIN 3.8 GM/DL (3.2-4.5); BILIRUBIN,TOTAL 1.3 MG/DL (0.1-1.0); CREATININE SERUM 0.77 MG/DL (0.60-1.30); TOTAL PROTEIN 5.6 GM/DL (6.4-8.2)
== END 2022-05-30 | disposition home or self-care (01) ==
LOC: ONC 09:33
PROVIDERS: ATTEND Internal Medicine Hematology & Oncology
DX: C90.00 Multiple myeloma not having achieved remission (principal); D50.9 Iron deficiency anemia, unspecified; J44.9 Chronic obstructive pulmonary disease, unspecified; M89.9 Disorder of bone, unspecified; I10 Essential (primary) hypertension; M54.6 Pain in thoracic spine; I48.91 Unspecified atrial fibrillation; K21.9 Gastro-esophageal reflux disease without esophagitis; E21.3 Hyperparathyroidism, unspecified; E66.9 Obesity, unspecified; Z98.890 Other specified postprocedural states; Z79.899 Other long term (current) drug therapy
CPT/HCPCS: 36415; 80053; 85025

== ENCOUNTER 2022-05-31 09:04 | Outpatient (RCR) | payer MEDICARE, OTHER ==
[2022-05-31 09:12] LABS: EOSINOPHILS # (AUTO) 0.4 10^3/uL (0.0-0.3)
[2022-05-31 09:14] LABS: BASOPHILS # (AUTO) 0.1 10^3/uL (0.0-0.1); BASOPHILS % (AUTO) 2 % (0-10); EOSINOPHILS % (AUTO) 7 % (0-10); HEMATOCRIT 37 % (40-54); HEMOGLOBIN 12.7 g/dL (13.3-17.7); LYMPHOCYTES % (AUTO) 16 % (12-44); MEAN CORPUSCULAR HEMOGLOBIN 28 pg (25-34); MEAN CORPUSCULAR HGB CONC 34 g/dL (32-36); MEAN CORPUSCULAR VOLUME 83 fL (80-99); MEAN PLATELET VOLUME 9.1 fL (9.0-12.2); MONOCYTES # (AUTO) 0.8 10^3/uL (0.0-1.0); MONOCYTES % (AUTO) 13 % (0-12); NEUTROPHILS # (AUTO) 3.9 10^3/uL (1.8-7.8); NEUTROPHILS % (AUTO) 62 % (42-75); PLATELET COUNT 113 10^3/uL (130-400); WHITE BLOOD COUNT 6.3 10^3/uL (4.3-11.0)
[2022-05-31 09:30] LABS: ALBUMIN 3.5 GM/DL (3.2-4.5); BILIRUBIN,TOTAL 1.3 MG/DL (0.1-1.0); CALCIUM 8.6 MG/DL (8.5-10.1); CREATININE SERUM 0.79 MG/DL (0.60-1.30); POTASSIUM 3.5 MMOL/L (3.6-5.0); TOTAL PROTEIN 5.2 GM/DL (6.4-8.2)
== END 2022-06-21 10:57 | disposition home or self-care (01) ==
LOC: ONC 09:04
PROVIDERS: ATTEND Internal Medicine Hematology & Oncology
DX: C90.00 Multiple myeloma not having achieved remission (principal); I48.91 Unspecified atrial fibrillation; E21.3 Hyperparathyroidism, unspecified; K21.9 Gastro-esophageal reflux disease without esophagitis; E66.9 Obesity, unspecified; Z98.890 Other specified postprocedural states
CPT/HCPCS: 36415; 80053; 85025

== ENCOUNTER 2022-06-28 09:05 | Outpatient (RCR) | payer MEDICARE, OTHER ==
[2022-06-28 09:24] LABS: BASOPHILS # (AUTO) 0.1 10^3/uL (0.0-0.1); BASOPHILS % (AUTO) 2 % (0-10); EOSINOPHILS # (AUTO) 0.4 10^3/uL (0.0-0.3); EOSINOPHILS % (AUTO) 9 % (0-10); HEMATOCRIT 38 % (40-54); HEMOGLOBIN 12.7 g/dL (13.3-17.7); LYMPHOCYTES # (AUTO) 1.4 10^3/uL (1.0-4.0); LYMPHOCYTES % (AUTO) 27 % (12-44); MEAN CORPUSCULAR HEMOGLOBIN 28 pg (25-34); MEAN CORPUSCULAR HGB CONC 33 g/dL (32-36); MEAN CORPUSCULAR VOLUME 85 fL (80-99); MEAN PLATELET VOLUME 8.9 fL (9.0-12.2); MONOCYTES # (AUTO) 0.6 10^3/uL (0.0-1.0); MONOCYTES % (AUTO) 11 % (0-12); NEUTROPHILS # (AUTO) 2.6 10^3/uL (1.8-7.8); NEUTROPHILS % (AUTO) 51 % (42-75); PLATELET COUNT 144 10^3/uL (130-400); WHITE BLOOD COUNT 5.2 10^3/uL (4.3-11.0)
[2022-06-28 09:53] LABS: ALBUMIN 3.5 GM/DL (3.2-4.5); BILIRUBIN,TOTAL 1.3 MG/DL (0.1-1.0); CALCIUM 8.4 MG/DL (8.5-10.1); CREATININE SERUM 0.78 MG/DL (0.60-1.30); POTASSIUM 3.8 MMOL/L (3.6-5.0); TOTAL PROTEIN 5.1 GM/DL (6.4-8.2)
== END 2022-06-30 ==
LOC: ONC 09:05
PROVIDERS: ATTEND Internal Medicine Hematology & Oncology
DX: C90.00 Multiple myeloma not having achieved remission (principal); D50.9 Iron deficiency anemia, unspecified; J44.9 Chronic obstructive pulmonary disease, unspecified; I10 Essential (primary) hypertension; M54.6 Pain in thoracic spine; I48.91 Unspecified atrial fibrillation; E21.3 Hyperparathyroidism, unspecified; E66.9 Obesity, unspecified; E83.52 Hypercalcemia; K21.9 Gastro-esophageal reflux disease without esophagitis; Z98.890 Other specified postprocedural states; Z87.311 Personal history of (healed) other pathological fracture
CPT/HCPCS: 36415; 80053; 82728; 83540; 83550; 85025

== ENCOUNTER 2022-07-10 05:51 | Outpatient (CLI) | payer MEDICARE, OTHER ==
[~2022-07-10] VITALS: Ht 167.6 cm; Wt 74.8 kg
== END 2022-07-11 08:38 | disposition home or self-care (01) ==
LOC: PREOP 05:51
PROVIDERS: ATTEND Surgery
DX: Z01.818 Encounter for other preprocedural examination (principal)

== ENCOUNTER 2022-07-17 09:54 | Day surgery (SDC) | payer MEDICARE, OTHER ==
[~2022-07-17] VITALS: Ht 167.6 cm; Wt 74.8 kg
[2022-07-17] MEDS ORDERED: LACTATED RINGERS 1,000 ML IV STA (10:01)
[2022-07-17] MEDS ORDERED: LIDOCAINE JELLY 2% 6 ML SYRINGE MM PRN (10:15)
[2022-07-17 10:33] VITALS: BP 132/88
--- NOTE | 2022-07-17 10:52 | Progress Note-Pre Operative ---
Pre-Operative Progress Note Date of Available H&P: Jul 17, 2022 Date H&P Reviewed: Jul 17, 2022 Time H&P Reviewed: 10:30 History & Physical: No changes noted Pre-Operative Diagnosis: anemia, rectal bleed JOEL GARCIA MD Jul 17, 2022 10:52
--- NOTE | 2022-07-17 10:53 | Discharge Inst-Surgical ---
D/C Lap Instructions-RADHA Follow Up Activity as tolerated High Fiber Diet 25g or more per day Avoid Alcohol, Caffeine, Spicy [place] and Acid foods. Drink 64 fluid oz or more of fluids per day. Symptoms to Report: Fever over 101 degree F, Nausea/Vomiting If any problems/questions: Contact your physician or go to Emergency Room JOEL GARCIA MD Jul 17, 2022 10:53
[2022-07-17] MEDS ORDERED: CALC-666 PO (10:59)
[2022-07-17] MEDS ORDERED: CALC600T91 PO (10:59)
[2022-07-17] MEDS ORDERED: LORA-404 PO (10:59)
[2022-07-17] MEDS ORDERED: ONDA8TAB13 PO (10:59)
[2022-07-17] MEDS ORDERED: LISI20TA26 PO (10:59)
[2022-07-17] MEDS ORDERED: IRON18TA PO (10:59)
[2022-07-17] MEDS ORDERED: TMSL.4C PO (10:59)
[2022-07-17] MEDS ORDERED: ONDANSETRON 4 MG (ZOFRAN) ORAL DISSOLVE TAB PO PRN (11:00)
[2022-07-17] MEDS ORDERED: ONDANSETRON 4 MG/2 ML (SDV) Z0FRAN IVP PRN (11:00)
[2022-07-17] MEDS ORDERED: PROPOFOL INJECTION 50 ML IV ONE (11:33)
--- NOTE | 2022-07-17 12:57 | Anesthesia-General Post-Op ---
MAC Patient Condition Mental Status/LOC: Same as Preop Cardiovascular: Satisfactory Nausea/Vomiting: Absent Respiratory: Satisfactory Pain: Controlled Complications: Absent Post Op Complications Complications None Follow Up Care/Instructions Patient Instructions None needed. Anesthesiology Discharge Order Discharge Order Patient is doing well, no complaints, stable vital signs, no apparent adverse anesthesia problems. No complications reported per nursing. ROHIT GREY CRNA Jul 17, 2022 12:57
[2022-07-17 13:00] VITALS: BP 105/69
[2022-07-17 13:05] VITALS: BP 107/68
[2022-07-17 13:10] VITALS: BP 113/73
--- NOTE | 2022-07-17 13:28 | Progress Note-Post Operative ---
Post-Operative Progess Note Surgeon (s)/Production Control Specialist (s) Surgeon OJEL GARCIA MD Production Control Specialist: none Pre-Operative Diagnosis anemia, rectal bleed Post-Operative Diagnosis chronic stage 2 ext and int hemorrhoids, mild sigmoid diverticulosis, polyp desc(2mm), spenic(3mm), hepatic(2mm). Procedure & Operative Findings Date of Procedure 07/17/22 Procedure Performed/Findings colonoscopy with bx Anesthesia Type mac Estimated Blood Loss Estimated blood loss (mL): minimal Specimens/Packing Specimens Removed polyp desc, splenic, hepatic JOEL GARCIA MD Jul 17, 2022 13:28
[2022-07-17 13:50] VITALS: BP 113/73
--- NOTE | 2022-07-17 19:25 | OPERATIVE REPORT ---
DATE OF SERVICE: 07/17/2022 ATTENDING [employer]: JAMA Gonzalez PREOPERATIVE DIAGNOSES: Hemoccult positive stools, anemia, history of multiple myeloma and polyps. POSTOPERATIVE DIAGNOSES: Chronic stage II external and internal hemorrhoids. No active bleeding, mild sigmoid diverticulosis, polyp of the descending colon, splenic flexure and hepatic flexure. PROCEDURE: Colonoscopy with polypectomy with biopsy forceps and electrocautery. SURGEON: Joel Garcia MD. ANESTHESIA: Monitored anesthesia care. ESTIMATED BLOOD LOSS: Minimal. FINDINGS: Chronic stage II external and internal hemorrhoids. No active bleeding, mild sigmoid diverticulosis, polyp of the descending colon, splenic flexure and hepatic flexure. DISPOSITION: The patient tolerated the procedure well. INDICATIONS: The patient is a 71-year-old male known to us. We have seen him in 12/2019 for Hemoccult positive stools and we had done a colonoscopy and was found to have chronic stage II external and internal hemorrhoids as well as a small polyp at the hepatic flexure consistent with a tubular adenoma. He did have some episodes of diarrhea and this was thought to be a viral etiology and he did have hemoccult stool test, which was positive. He always does have a baseline anemia, likely secondary to a history of multiple myeloma. He does not report any family history of colon cancer. DESCRIPTION OF PROCEDURE: The patient was brought to the endoscopy suite, laid in the left lateral decubitus position. After adequate IV pain and sedative medications and monitored anesthesia care, a digital rectal examination was performed, which revealed chronic stage II external and internal hemorrhoids, not actively edematous nor inflamed and no bleeding. Normal sphincter tone was felt and there were no palpable masses. Prostate gland was palpable. The bilobed seemed slightly larger in size; however, no abnormal masses. The endoscope was then intubated into the anus and rectum gently insufflated. The endoscope was then advanced through the valves of Jain of the rectum with no polyps or any neoplasms identified. We then proceeded through the sigmoid colon where mild sigmoid diverticulosis identified. We then proceeded through the remainder of the descending colon where a small polyp approximately 2 mm in size and sessile identified. This was biopsied and destroyed with forceps with visualization of good hemostasis. We then proceeded through the remainder of the descending colon to the hepatic flexure where a pedunculated polyp approximately 3 mm in size was identified. This was removed with forceps and electrocautery. All polyp approximately 2 mm in size was identified. This was biopsied and destroyed with forceps and electrocautery with visualization of good hemostasis. The endoscope was then slowly withdrawn while taking a second look and suctioning of residual air with no additional findings. The patient tolerated the procedure well. We will recommend a high-fiber diet with a fiber supplement, which should equal or exceed 30 grams daily to promote soft consistency stools on a daily basis. It appears that he has a polyp former, however, these appeared to be tubular adenomas. We feel that the heme positive stools are likely due to hemorrhoidal irritation. Due to his history of polyps on two consecutive colonoscopies and the one previous to that we will recommend another colonoscopy in approximately 5 years. Job ID: [id number] DocumentID: [id number] Dictated Date: 07/17/2022 13:02:58 [employer] Date: 07/17/2022 19:24:50 Dictated By: JOEL GARCIA MD MTDD
== END 2022-07-17 13:50 | disposition home or self-care (01) ==
LOC: ENDO 09:54
PROVIDERS: ATTEND Surgery
DX: D12.3 Benign neoplasm of transverse colon (principal); K57.30 Diverticulosis of large intestine without perforation or abscess without bleeding; K63.5 Polyp of colon; Z79.899 Other long term (current) drug therapy; K64.1 Second degree hemorrhoids; K64.8 Other hemorrhoids
CPT/HCPCS: 88305

== ENCOUNTER 2022-07-26 08:29 | Outpatient (RCR) | payer MEDICARE, OTHER ==
[~2022-07-26 08:29] MED LIST changes: +CALC-666 PO; +CALC600T91 PO; +IRON18TA PO; +LEVO750T; -LEVO750T39; +LORA-404 PO; +ONDA8TAB13 PO; +TMSL.4C PO
[2022-07-26 08:46] LABS: BASOPHILS # (AUTO) 0.1 10^3/uL (0.0-0.1); BASOPHILS % (AUTO) 3 % (0-10); EOSINOPHILS # (AUTO) 0.3 10^3/uL (0.0-0.3); EOSINOPHILS % (AUTO) 5 % (0-10); HEMATOCRIT 37 % (40-54); HEMOGLOBIN 12.4 g/dL (13.3-17.7); LYMPHOCYTES # (AUTO) 1.4 10^3/uL (1.0-4.0); LYMPHOCYTES % (AUTO) 29 % (12-44); MEAN CORPUSCULAR HEMOGLOBIN 29 pg (25-34); MEAN CORPUSCULAR HGB CONC 34 g/dL (32-36); MEAN CORPUSCULAR VOLUME 86 fL (80-99); MONOCYTES # (AUTO) 0.6 10^3/uL (0.0-1.0); MONOCYTES % (AUTO) 12 % (0-12); NEUTROPHILS # (AUTO) 2.5 10^3/uL (1.8-7.8); NEUTROPHILS % (AUTO) 51 % (42-75); WHITE BLOOD COUNT 4.9 10^3/uL (4.3-11.0)
[2022-07-26 08:53] LABS: PLATELET COUNT 128 10^3/uL (130-400)
[2022-07-26 09:16] LABS: ALBUMIN 3.5 GM/DL (3.2-4.5); CALCIUM 8.6 MG/DL (8.5-10.1); CREATININE SERUM 0.79 MG/DL (0.60-1.30); POTASSIUM 3.6 MMOL/L (3.6-5.0); TOTAL PROTEIN 4.8 GM/DL (6.4-8.2)
== END 2022-07-31 | disposition home or self-care (01) ==
LOC: ONC 08:29
PROVIDERS: ATTEND Internal Medicine Hematology & Oncology
DX: C90.00 Multiple myeloma not having achieved remission (principal); D50.9 Iron deficiency anemia, unspecified; J44.9 Chronic obstructive pulmonary disease, unspecified; I10 Essential (primary) hypertension; M54.6 Pain in thoracic spine; I48.91 Unspecified atrial fibrillation; E21.3 Hyperparathyroidism, unspecified; E66.9 Obesity, unspecified; Z98.890 Other specified postprocedural states
CPT/HCPCS: 36415; 80053; 85025

== ENCOUNTER 2022-08-26 09:44 | Outpatient (RCR) | payer MEDICARE, OTHER ==
[2022-08-23 08:52] LABS: BASOPHILS # (AUTO) 0.1 10^3/uL (0.0-0.1); BASOPHILS % (AUTO) 3 % (0-10); EOSINOPHILS # (AUTO) 0.2 10^3/uL (0.0-0.3); EOSINOPHILS % (AUTO) 5 % (0-10); HEMATOCRIT 38 % (40-54); HEMOGLOBIN 13.2 g/dL (13.3-17.7); LYMPHOCYTES # (AUTO) 1.1 10^3/uL (1.0-4.0); LYMPHOCYTES % (AUTO) 26 % (12-44); MEAN CORPUSCULAR HEMOGLOBIN 30 pg (25-34); MEAN CORPUSCULAR HGB CONC 35 g/dL (32-36); MEAN CORPUSCULAR VOLUME 86 fL (80-99); MEAN PLATELET VOLUME 9.7 fL (9.0-12.2); MONOCYTES # (AUTO) 0.5 10^3/uL (0.0-1.0); MONOCYTES % (AUTO) 11 % (0-12); NEUTROPHILS # (AUTO) 2.4 10^3/uL (1.8-7.8); NEUTROPHILS % (AUTO) 54 % (42-75); PLATELET COUNT 117 10^3/uL (130-400); WHITE BLOOD COUNT 4.4 10^3/uL (4.3-11.0)
[2022-08-23 09:09] LABS: ALBUMIN 3.8 GM/DL (3.2-4.5); BILIRUBIN,TOTAL 1.2 MG/DL (0.1-1.0); CALCIUM 8.7 MG/DL (8.5-10.1); CREATININE SERUM 0.78 MG/DL (0.60-1.30); POTASSIUM 3.8 MMOL/L (3.6-5.0); TOTAL PROTEIN 5.5 GM/DL (6.4-8.2)
== END 2022-08-30 | disposition home or self-care (01) ==
LOC: ONC 09:44
PROVIDERS: ATTEND Internal Medicine Hematology & Oncology
DX: C90.00 Multiple myeloma not having achieved remission (principal); D50.9 Iron deficiency anemia, unspecified; J44.9 Chronic obstructive pulmonary disease, unspecified; I10 Essential (primary) hypertension; E66.9 Obesity, unspecified; K21.9 Gastro-esophageal reflux disease without esophagitis
CPT/HCPCS: 36415; 80053; 82728; 83540; 83550; 85025; 99213

== ENCOUNTER 2022-09-20 08:29 | Outpatient (RCR) | payer MEDICARE, OTHER ==
[~2022-09-20 08:29] MED LIST changes: +ALBU8.5H6 IH; -RT-ALBUINH IH
[2022-09-20 08:52] LABS: BASOPHILS # (AUTO) 0.1 10^3/uL (0.0-0.1); BASOPHILS % (AUTO) 3 % (0-10); EOSINOPHILS # (AUTO) 0.3 10^3/uL (0.0-0.3); EOSINOPHILS % (AUTO) 5 % (0-10); HEMATOCRIT 40 % (40-54); HEMOGLOBIN 13.7 g/dL (13.3-17.7); LYMPHOCYTES # (AUTO) 1.4 10^3/uL (1.0-4.0); LYMPHOCYTES % (AUTO) 28 % (12-44); MEAN CORPUSCULAR HEMOGLOBIN 29 pg (25-34); MEAN CORPUSCULAR HGB CONC 34 g/dL (32-36); MEAN CORPUSCULAR VOLUME 84 fL (80-99); MEAN PLATELET VOLUME 8.9 fL (9.0-12.2); MONOCYTES # (AUTO) 0.7 10^3/uL (0.0-1.0); MONOCYTES % (AUTO) 13 % (0-12); NEUTROPHILS # (AUTO) 2.6 10^3/uL (1.8-7.8); NEUTROPHILS % (AUTO) 51 % (42-75); PLATELET COUNT 116 10^3/uL (130-400); WHITE BLOOD COUNT 5.1 10^3/uL (4.3-11.0)
[2022-09-20 09:01] LABS: ALBUMIN 3.8 GM/DL (3.2-4.5); POTASSIUM 3.7 MMOL/L (3.6-5.0)
[2022-09-20 09:02] LABS: CALCIUM 8.5 MG/DL (8.5-10.1)
[2022-09-20 09:04] LABS: TOTAL PROTEIN 5.5 GM/DL (6.4-8.2)
[2022-09-20 09:05] LABS: BILIRUBIN,TOTAL 1.1 MG/DL (0.1-1.0)
[2022-09-20 09:07] LABS: CREATININE SERUM 0.76 MG/DL (0.60-1.30)
== END 2022-09-30 ==
LOC: ONC 08:29
PROVIDERS: ATTEND Internal Medicine Hematology & Oncology
DX: C90.00 Multiple myeloma not having achieved remission (principal); D50.9 Iron deficiency anemia, unspecified; J44.9 Chronic obstructive pulmonary disease, unspecified; I10 Essential (primary) hypertension; E66.9 Obesity, unspecified; K21.9 Gastro-esophageal reflux disease without esophagitis
CPT/HCPCS: 36415; 80053; 82728; 83540; 83550; 85025

== ENCOUNTER 2022-10-21 08:51 | Outpatient (RCR) | payer MEDICARE, OTHER ==
[2022-10-18 08:46] LABS: BASOPHILS # (AUTO) 0.1 10^3/uL (0.0-0.1); BASOPHILS % (AUTO) 2 % (0-10); EOSINOPHILS # (AUTO) 0.4 10^3/uL (0.0-0.3); EOSINOPHILS % (AUTO) 7 % (0-10); HEMATOCRIT 42 % (40-54); HEMOGLOBIN 14.1 g/dL (13.3-17.7); LYMPHOCYTES # (AUTO) 1.7 10^3/uL (1.0-4.0); LYMPHOCYTES % (AUTO) 31 % (12-44); MEAN CORPUSCULAR HEMOGLOBIN 28 pg (25-34); MEAN CORPUSCULAR HGB CONC 34 g/dL (32-36); MEAN CORPUSCULAR VOLUME 83 fL (80-99); MEAN PLATELET VOLUME 8.5 fL (9.0-12.2); MONOCYTES # (AUTO) 0.7 10^3/uL (0.0-1.0); MONOCYTES % (AUTO) 13 % (0-12); NEUTROPHILS # (AUTO) 2.6 10^3/uL (1.8-7.8); NEUTROPHILS % (AUTO) 47 % (42-75); PLATELET COUNT 132 10^3/uL (130-400); WHITE BLOOD COUNT 5.5 10^3/uL (4.3-11.0)
[2022-10-18 09:05] LABS: ALBUMIN 3.8 GM/DL (3.2-4.5); BILIRUBIN,TOTAL 0.9 MG/DL (0.1-1.0); CALCIUM 8.6 MG/DL (8.5-10.1); CREATININE SERUM 0.79 MG/DL (0.60-1.30); POTASSIUM 3.6 MMOL/L (3.6-5.0); TOTAL PROTEIN 5.6 GM/DL (6.4-8.2)
== END 2022-10-30 | disposition home or self-care (01) ==
LOC: ONC 08:51
PROVIDERS: ATTEND Internal Medicine Hematology & Oncology
DX: C90.00 Multiple myeloma not having achieved remission (principal); D50.9 Iron deficiency anemia, unspecified; J44.9 Chronic obstructive pulmonary disease, unspecified; I10 Essential (primary) hypertension; E66.9 Obesity, unspecified; K21.9 Gastro-esophageal reflux disease without esophagitis; I48.91 Unspecified atrial fibrillation; E21.3 Hyperparathyroidism, unspecified
CPT/HCPCS: 36415; 80053; 82728; 83540; 83550; 85025; 99213

== ENCOUNTER 2022-12-23 08:47 | Outpatient (RCR) | payer MEDICARE, OTHER ==
[2022-12-13 08:39] LABS: HEMOGLOBIN 14.2 g/dL (13.3-17.7); MEAN CORPUSCULAR HEMOGLOBIN 28 pg (25-34); MEAN CORPUSCULAR HGB CONC 33 g/dL (32-36); MEAN PLATELET VOLUME 9.1 fL (9.0-12.2)
[2022-12-13 08:40] LABS: BASOPHILS # (AUTO) 0.1 10^3/uL (0.0-0.1); BASOPHILS % (AUTO) 2 % (0-10); EOSINOPHILS # (AUTO) 0.2 10^3/uL (0.0-0.3); EOSINOPHILS % (AUTO) 3 % (0-10); HEMATOCRIT 43 % (40-54); LYMPHOCYTES # (AUTO) 1.4 10^3/uL (1.0-4.0); LYMPHOCYTES % (AUTO) 25 % (12-44); MEAN CORPUSCULAR VOLUME 84 fL (80-99); MONOCYTES # (AUTO) 0.7 10^3/uL (0.0-1.0); MONOCYTES % (AUTO) 13 % (0-12); NEUTROPHILS # (AUTO) 3.3 10^3/uL (1.8-7.8); NEUTROPHILS % (AUTO) 57 % (42-75); PLATELET COUNT 117 10^3/uL (130-400); WHITE BLOOD COUNT 5.8 10^3/uL (4.3-11.0)
[2022-12-13 08:54] LABS: BILIRUBIN,TOTAL 1.4 MG/DL (0.1-1.0); CALCIUM 8.9 MG/DL (8.5-10.1); CREATININE SERUM 0.81 MG/DL (0.60-1.30); POTASSIUM 3.5 MMOL/L (3.6-5.0); TOTAL PROTEIN 5.7 GM/DL (6.4-8.2)
== END 2022-12-31 | disposition home or self-care (01) ==
LOC: ONC 08:47
PROVIDERS: ATTEND Internal Medicine Hematology & Oncology
DX: C90.00 Multiple myeloma not having achieved remission (principal); E66.9 Obesity, unspecified; K21.9 Gastro-esophageal reflux disease without esophagitis; I48.91 Unspecified atrial fibrillation; E21.3 Hyperparathyroidism, unspecified; D64.9 Anemia, unspecified
CPT/HCPCS: 36415; 80053; 82728; 83540; 83550; 85025; 99213

== ENCOUNTER 2023-01-10 08:19 | Outpatient (RCR) | payer MEDICARE, OTHER ==
[2023-01-10 08:59] LABS: EOSINOPHILS # (AUTO) 0.2 10^3/uL (0.0-0.3); EOSINOPHILS % (AUTO) 4 % (0-10); MEAN CORPUSCULAR HEMOGLOBIN 28 pg (25-34)
[2023-01-10 09:01] LABS: BASOPHILS # (AUTO) 0.1 10^3/uL (0.0-0.1); BASOPHILS % (AUTO) 2 % (0-10); HEMATOCRIT 41 % (40-54); LYMPHOCYTES # (AUTO) 1.1 10^3/uL (1.0-4.0); LYMPHOCYTES % (AUTO) 21 % (12-44); MEAN CORPUSCULAR HGB CONC 34 g/dL (32-36); MEAN CORPUSCULAR VOLUME 82 fL (80-99); MEAN PLATELET VOLUME 8.7 fL (9.0-12.2); MONOCYTES # (AUTO) 0.7 10^3/uL (0.0-1.0); MONOCYTES % (AUTO) 15 % (0-12); NEUTROPHILS % (AUTO) 59 % (42-75); PLATELET COUNT 149 10^3/uL (130-400); WHITE BLOOD COUNT 5.1 10^3/uL (4.3-11.0)
[2023-01-10 09:17] LABS: ALBUMIN 3.7 GM/DL (3.2-4.5); CALCIUM 8.8 MG/DL (8.5-10.1); CREATININE SERUM 0.79 MG/DL (0.60-1.30); POTASSIUM 3.6 MMOL/L (3.6-5.0)
== END 2023-01-28 | disposition home or self-care (01) ==
LOC: ONC 08:19
PROVIDERS: ATTEND Internal Medicine Hematology & Oncology
DX: C90.00 Multiple myeloma not having achieved remission (principal); D50.9 Iron deficiency anemia, unspecified; E66.9 Obesity, unspecified; I10 Essential (primary) hypertension; E21.3 Hyperparathyroidism, unspecified; J44.9 Chronic obstructive pulmonary disease, unspecified; Z86.79 Personal history of other diseases of the circulatory system
CPT/HCPCS: 80053; 82784; 83883; 84155; 84165; 85025

== ENCOUNTER 2023-02-12 09:18 | Outpatient (RCR) | payer MEDICARE, OTHER ==
[2023-02-07 08:37] LABS: EOSINOPHILS # (AUTO) 0.2 10^3/uL (0.0-0.3); MEAN CORPUSCULAR VOLUME 82 fL (80-99)
[2023-02-07 08:39] LABS: BASOPHILS # (AUTO) 0.1 10^3/uL (0.0-0.1); BASOPHILS % (AUTO) 1 % (0-10); EOSINOPHILS % (AUTO) 3 % (0-10); HEMATOCRIT 40 % (40-54); HEMOGLOBIN 13.3 g/dL (13.3-17.7); LYMPHOCYTES % (AUTO) 15 % (12-44); MEAN CORPUSCULAR HEMOGLOBIN 28 pg (25-34); MEAN CORPUSCULAR HGB CONC 33 g/dL (32-36); MEAN PLATELET VOLUME 8.8 fL (9.0-12.2); MONOCYTES # (AUTO) 0.8 10^3/uL (0.0-1.0); MONOCYTES % (AUTO) 13 % (0-12); NEUTROPHILS # (AUTO) 4.2 10^3/uL (1.8-7.8); NEUTROPHILS % (AUTO) 68 % (42-75); PLATELET COUNT 139 10^3/uL (130-400); WHITE BLOOD COUNT 6.3 10^3/uL (4.3-11.0)
[2023-02-07 09:00] LABS: ALBUMIN 3.6 GM/DL (3.2-4.5); CALCIUM 8.7 MG/DL (8.5-10.1); CREATININE SERUM 0.84 MG/DL (0.60-1.30); POTASSIUM 3.9 MMOL/L (3.6-5.0); TOTAL PROTEIN 5.5 GM/DL (6.4-8.2)
== END 2023-02-28 | disposition home or self-care (01) ==
LOC: ONC 09:18
PROVIDERS: ATTEND Internal Medicine Hematology & Oncology
DX: C90.00 Multiple myeloma not having achieved remission (principal); D50.9 Iron deficiency anemia, unspecified; I48.91 Unspecified atrial fibrillation; I10 Essential (primary) hypertension; E66.9 Obesity, unspecified; E21.3 Hyperparathyroidism, unspecified; J44.9 Chronic obstructive pulmonary disease, unspecified; K21.9 Gastro-esophageal reflux disease without esophagitis
CPT/HCPCS: 36415; 80053; 82784; 83883; 84155; 84165; 85025

== ENCOUNTER 2023-03-06 08:28 | Outpatient (RCR) | payer MEDICARE, OTHER ==
[2023-03-06 08:57] LABS: EOSINOPHILS % (AUTO) 5 % (0-10); MONOCYTES # (AUTO) 0.6 10^3/uL (0.0-1.0)
[2023-03-06 08:58] LABS: BASOPHILS # (AUTO) 0.1 10^3/uL (0.0-0.1); BASOPHILS % (AUTO) 2 % (0-10); EOSINOPHILS # (AUTO) 0.2 10^3/uL (0.0-0.3); HEMATOCRIT 40 % (40-54); HEMOGLOBIN 13.9 g/dL (13.3-17.7); LYMPHOCYTES # (AUTO) 1.2 10^3/uL (1.0-4.0); LYMPHOCYTES % (AUTO) 24 % (12-44); MEAN CORPUSCULAR HEMOGLOBIN 28 pg (25-34); MEAN CORPUSCULAR HGB CONC 34 g/dL (32-36); MEAN CORPUSCULAR VOLUME 82 fL (80-99); MEAN PLATELET VOLUME 9.1 fL (9.0-12.2); MONOCYTES % (AUTO) 12 % (0-12); NEUTROPHILS # (AUTO) 2.9 10^3/uL (1.8-7.8); NEUTROPHILS % (AUTO) 57 % (42-75); PLATELET COUNT 108 10^3/uL (130-400); WHITE BLOOD COUNT 5.1 10^3/uL (4.3-11.0)
[2023-03-06 09:21] LABS: ALBUMIN 3.6 GM/DL (3.2-4.5); CALCIUM 8.9 MG/DL (8.5-10.1); CREATININE SERUM 0.83 MG/DL (0.60-1.30); POTASSIUM 3.8 MMOL/L (3.6-5.0); TOTAL PROTEIN 5.3 GM/DL (6.4-8.2)
== END 2023-03-30 | disposition home or self-care (01) ==
LOC: ONC 08:28
PROVIDERS: ATTEND Internal Medicine Hematology & Oncology
DX: C90.00 Multiple myeloma not having achieved remission (principal); D50.9 Iron deficiency anemia, unspecified; I48.91 Unspecified atrial fibrillation; I10 Essential (primary) hypertension; E66.9 Obesity, unspecified; E21.3 Hyperparathyroidism, unspecified; J44.9 Chronic obstructive pulmonary disease, unspecified; K21.9 Gastro-esophageal reflux disease without esophagitis
CPT/HCPCS: 36415; 80053; 82784; 83883; 84155; 84165; 85025

== ENCOUNTER 2023-04-09 08:49 | Outpatient (RCR) | payer MEDICARE, OTHER ==
[2023-04-04 08:43] LABS: EOSINOPHILS % (AUTO) 5 % (0-10); MEAN CORPUSCULAR HEMOGLOBIN 29 pg (25-34); MEAN PLATELET VOLUME 9.1 fL (9.0-12.2)
[2023-04-04 08:45] LABS: BASOPHILS # (AUTO) 0.1 10^3/uL (0.0-0.1); BASOPHILS % (AUTO) 3 % (0-10); EOSINOPHILS # (AUTO) 0.2 10^3/uL (0.0-0.3); HEMATOCRIT 40 % (40-54); HEMOGLOBIN 13.8 g/dL (13.3-17.7); LYMPHOCYTES % (AUTO) 22 % (12-44); MEAN CORPUSCULAR HGB CONC 35 g/dL (32-36); MEAN CORPUSCULAR VOLUME 83 fL (80-99); MONOCYTES # (AUTO) 0.6 10^3/uL (0.0-1.0); MONOCYTES % (AUTO) 13 % (0-12); NEUTROPHILS # (AUTO) 2.7 10^3/uL (1.8-7.8); NEUTROPHILS % (AUTO) 58 % (42-75); PLATELET COUNT 120 10^3/uL (130-400); WHITE BLOOD COUNT 4.7 10^3/uL (4.3-11.0)
[2023-04-04 09:12] LABS: ALBUMIN 3.9 GM/DL (3.2-4.5); BILIRUBIN,TOTAL 1.1 MG/DL (0.1-1.0); CALCIUM 8.2 MG/DL (8.5-10.1); CREATININE SERUM 0.81 MG/DL (0.60-1.30); POTASSIUM 3.6 MMOL/L (3.6-5.0); TOTAL PROTEIN 5.9 GM/DL (6.4-8.2)
== END 2023-04-30 | disposition home or self-care (01) ==
LOC: ONC 08:49
PROVIDERS: ATTEND Internal Medicine Hematology & Oncology
DX: C90.00 Multiple myeloma not having achieved remission (principal); D50.9 Iron deficiency anemia, unspecified; I48.91 Unspecified atrial fibrillation; I10 Essential (primary) hypertension; E66.9 Obesity, unspecified; E21.3 Hyperparathyroidism, unspecified; J44.9 Chronic obstructive pulmonary disease, unspecified; K21.9 Gastro-esophageal reflux disease without esophagitis
CPT/HCPCS: 36415; 80053; 82784; 83883; 84155; 84165; 85025

== ENCOUNTER → 2023-05-30 | Outpatient (RCR) | payer MEDICARE, OTHER ==
[2023-05-02 08:45] LABS: MEAN CORPUSCULAR HGB CONC 34 g/dL (32-36)
[2023-05-02 08:47] LABS: BASOPHILS # (AUTO) 0.1 10^3/uL (0.0-0.1); BASOPHILS % (AUTO) 2 % (0-10); EOSINOPHILS # (AUTO) 0.2 10^3/uL (0.0-0.3); EOSINOPHILS % (AUTO) 3 % (0-10); HEMATOCRIT 40 % (40-54); HEMOGLOBIN 13.9 g/dL (13.3-17.7); LYMPHOCYTES # (AUTO) 1.2 10^3/uL (1.0-4.0); LYMPHOCYTES % (AUTO) 23 % (12-44); MEAN CORPUSCULAR HEMOGLOBIN 29 pg (25-34); MEAN CORPUSCULAR VOLUME 84 fL (80-99); MEAN PLATELET VOLUME 8.9 fL (9.0-12.2); MONOCYTES # (AUTO) 0.6 10^3/uL (0.0-1.0); MONOCYTES % (AUTO) 12 % (0-12); NEUTROPHILS # (AUTO) 2.9 10^3/uL (1.8-7.8); NEUTROPHILS % (AUTO) 59 % (42-75); PLATELET COUNT 103 10^3/uL (130-400)
[2023-05-02 08:54] LABS: ALBUMIN 3.8 GM/DL (3.2-4.5)
[2023-05-02 08:55] LABS: POTASSIUM 3.8 MMOL/L (3.6-5.0)
[2023-05-02 08:56] LABS: CALCIUM 9.1 MG/DL (8.5-10.1)
[2023-05-02 08:57] LABS: TOTAL PROTEIN 5.4 GM/DL (6.4-8.2)
[2023-05-02 09:01] LABS: CREATININE SERUM 0.81 MG/DL (0.60-1.30)
[2023-05-30 08:42] LABS: EOSINOPHILS # (AUTO) 0.2 10^3/uL (0.0-0.3); MEAN CORPUSCULAR HEMOGLOBIN 29 pg (25-34)
[2023-05-30 08:44] LABS: BASOPHILS # (AUTO) 0.1 10^3/uL (0.0-0.1); BASOPHILS % (AUTO) 2 % (0-10); EOSINOPHILS % (AUTO) 4 % (0-10); HEMATOCRIT 42 % (40-54); HEMOGLOBIN 14.2 g/dL (13.3-17.7); LYMPHOCYTES # (AUTO) 1.2 10^3/uL (1.0-4.0); LYMPHOCYTES % (AUTO) 22 % (12-44); MEAN CORPUSCULAR HGB CONC 34 g/dL (32-36); MEAN CORPUSCULAR VOLUME 85 fL (80-99); MEAN PLATELET VOLUME 9.5 fL (9.0-12.2); MONOCYTES # (AUTO) 0.6 10^3/uL (0.0-1.0); MONOCYTES % (AUTO) 11 % (0-12); NEUTROPHILS # (AUTO) 3.2 10^3/uL (1.8-7.8); NEUTROPHILS % (AUTO) 61 % (42-75); PLATELET COUNT 106 10^3/uL (130-400); WHITE BLOOD COUNT 5.2 10^3/uL (4.3-11.0)
[2023-05-30 08:54] LABS: ALBUMIN 3.8 GM/DL (3.2-4.5)
[2023-05-30 08:55] LABS: POTASSIUM 3.7 MMOL/L (3.6-5.0)
[2023-05-30 08:56] LABS: CALCIUM 8.7 MG/DL (8.5-10.1)
[2023-05-30 08:57] LABS: TOTAL PROTEIN 5.6 GM/DL (6.4-8.2)
[2023-05-30 09:00] LABS: CREATININE SERUM 0.78 MG/DL (0.60-1.30)
[2023-05-30 09:17] LABS: BILIRUBIN,TOTAL 1.1 MG/DL (0.1-1.0)
== END | disposition home or self-care (01) ==
LOC: ONC 05-02 08:22
PROVIDERS: ATTEND Internal Medicine Hematology & Oncology
DX: C90.00 Multiple myeloma not having achieved remission (principal); D50.9 Iron deficiency anemia, unspecified; I48.91 Unspecified atrial fibrillation; I10 Essential (primary) hypertension; E66.9 Obesity, unspecified; E21.3 Hyperparathyroidism, unspecified; J44.9 Chronic obstructive pulmonary disease, unspecified; K21.9 Gastro-esophageal reflux disease without esophagitis
CPT/HCPCS: 36415; 80053; 82784; 84155; 84165; 85025

== ENCOUNTER 2023-06-27 08:22 | Outpatient (RCR) | payer MEDICARE, OTHER ==
[2023-06-27 08:36] LABS: BASOPHILS # (AUTO) 0.1 10^3/uL (0.0-0.1); BASOPHILS % (AUTO) 2 % (0-10); HEMATOCRIT 40 % (40-54); HEMOGLOBIN 13.5 g/dL (13.3-17.7); MEAN CORPUSCULAR HGB CONC 34 g/dL (32-36); MONOCYTES # (AUTO) 0.6 10^3/uL (0.0-1.0)
[2023-06-27 08:38] LABS: EOSINOPHILS # (AUTO) 0.1 10^3/uL (0.0-0.3); EOSINOPHILS % (AUTO) 3 % (0-10); LYMPHOCYTES # (AUTO) 1.8 10^3/uL (1.0-4.0); LYMPHOCYTES % (AUTO) 37 % (12-44); MEAN CORPUSCULAR HEMOGLOBIN 29 pg (25-34); MEAN CORPUSCULAR VOLUME 86 fL (80-99); MEAN PLATELET VOLUME 9.4 fL (9.0-12.2); MONOCYTES % (AUTO) 12 % (0-12); NEUTROPHILS # (AUTO) 2.2 10^3/uL (1.8-7.8); NEUTROPHILS % (AUTO) 45 % (42-75); PLATELET COUNT 112 10^3/uL (130-400); WHITE BLOOD COUNT 4.8 10^3/uL (4.3-11.0)
[2023-06-27 08:49] LABS: ALBUMIN 3.7 GM/DL (3.2-4.5); POTASSIUM 3.7 MMOL/L (3.6-5.0)
[2023-06-27 08:50] LABS: CALCIUM 8.8 MG/DL (8.5-10.1)
[2023-06-27 08:52] LABS: TOTAL PROTEIN 5.2 GM/DL (6.4-8.2)
[2023-06-27 08:53] LABS: BILIRUBIN,TOTAL 1.3 MG/DL (0.1-1.0)
[2023-06-27 08:55] LABS: CREATININE SERUM 0.81 MG/DL (0.60-1.30)
== END 2023-06-30 | disposition home or self-care (01) ==
LOC: ONC 08:22
PROVIDERS: ATTEND Internal Medicine Hematology & Oncology
DX: C90.00 Multiple myeloma not having achieved remission (principal); D50.9 Iron deficiency anemia, unspecified; I48.91 Unspecified atrial fibrillation; I10 Essential (primary) hypertension; E66.9 Obesity, unspecified; E21.3 Hyperparathyroidism, unspecified; J44.9 Chronic obstructive pulmonary disease, unspecified; K21.9 Gastro-esophageal reflux disease without esophagitis
CPT/HCPCS: 36415; 80053; 82784; 83883; 84155; 84165; 85025

== ENCOUNTER 2023-07-28 08:58 | Outpatient (RCR) | payer MEDICARE, OTHER ==
[2023-07-25 08:42] LABS: HEMOGLOBIN 14.4 g/dL (13.3-17.7); MEAN CORPUSCULAR HEMOGLOBIN 29 pg (25-34)
[2023-07-25 08:44] LABS: BASOPHILS # (AUTO) 0.1 10^3/uL (0.0-0.1); BASOPHILS % (AUTO) 2 % (0-10); EOSINOPHILS # (AUTO) 0.2 10^3/uL (0.0-0.3); EOSINOPHILS % (AUTO) 3 % (0-10); HEMATOCRIT 43 % (40-54); LYMPHOCYTES # (AUTO) 1.4 10^3/uL (1.0-4.0); LYMPHOCYTES % (AUTO) 24 % (12-44); MEAN CORPUSCULAR HGB CONC 34 g/dL (32-36); MEAN CORPUSCULAR VOLUME 86 fL (80-99); MEAN PLATELET VOLUME 8.8 fL (9.0-12.2); MONOCYTES # (AUTO) 0.7 10^3/uL (0.0-1.0); MONOCYTES % (AUTO) 13 % (0-12); NEUTROPHILS # (AUTO) 3.4 10^3/uL (1.8-7.8); NEUTROPHILS % (AUTO) 58 % (42-75); PLATELET COUNT 126 10^3/uL (130-400); WHITE BLOOD COUNT 5.8 10^3/uL (4.3-11.0)
[2023-07-25 09:02] LABS: ALBUMIN 3.8 GM/DL (3.2-4.5); BILIRUBIN,TOTAL 1.1 MG/DL (0.1-1.0); CALCIUM 8.6 MG/DL (8.5-10.1); CREATININE SERUM 0.86 MG/DL (0.60-1.30); POTASSIUM 3.8 MMOL/L (3.6-5.0); TOTAL PROTEIN 5.6 GM/DL (6.4-8.2)
== END 2023-07-31 | disposition home or self-care (01) ==
LOC: ONC 08:58
PROVIDERS: ATTEND Internal Medicine Hematology & Oncology
DX: C90.00 Multiple myeloma not having achieved remission (principal); D50.9 Iron deficiency anemia, unspecified; I48.91 Unspecified atrial fibrillation; I10 Essential (primary) hypertension; E66.9 Obesity, unspecified; E21.3 Hyperparathyroidism, unspecified; J44.9 Chronic obstructive pulmonary disease, unspecified; K21.9 Gastro-esophageal reflux disease without esophagitis
CPT/HCPCS: 36415; 80053; 82784; 83883; 84155; 84165; 85025; 99214

== ENCOUNTER 2023-08-22 08:34 | Outpatient (RCR) | payer MEDICARE, OTHER ==
[2023-08-22 09:00] LABS: MEAN CORPUSCULAR HEMOGLOBIN 29 pg (25-34); MEAN CORPUSCULAR VOLUME 86 fL (80-99)
[2023-08-22 09:02] LABS: BASOPHILS # (AUTO) 0.1 10^3/uL (0.0-0.1); BASOPHILS % (AUTO) 1 % (0-10); EOSINOPHILS # (AUTO) 0.2 10^3/uL (0.0-0.3); EOSINOPHILS % (AUTO) 4 % (0-10); HEMATOCRIT 43 % (40-54); HEMOGLOBIN 14.5 g/dL (13.3-17.7); LYMPHOCYTES # (AUTO) 1.5 10^3/uL (1.0-4.0); LYMPHOCYTES % (AUTO) 25 % (12-44); MEAN CORPUSCULAR HGB CONC 34 g/dL (32-36); MEAN PLATELET VOLUME 8.7 fL (9.0-12.2); MONOCYTES # (AUTO) 0.6 10^3/uL (0.0-1.0); MONOCYTES % (AUTO) 11 % (0-12); NEUTROPHILS # (AUTO) 3.5 10^3/uL (1.8-7.8); NEUTROPHILS % (AUTO) 59 % (42-75); PLATELET COUNT 116 10^3/uL (130-400); WHITE BLOOD COUNT 5.9 10^3/uL (4.3-11.0)
[2023-08-22 09:22] LABS: ALBUMIN 3.8 GM/DL (3.2-4.5); CALCIUM 8.3 MG/DL (8.5-10.1); CREATININE SERUM 0.79 MG/DL (0.60-1.30); POTASSIUM 3.7 MMOL/L (3.6-5.0); TOTAL PROTEIN 5.4 GM/DL (6.4-8.2)
== END 2023-08-30 | disposition home or self-care (01) ==
LOC: ONC 08:34
PROVIDERS: ATTEND Internal Medicine Hematology & Oncology
DX: C90.00 Multiple myeloma not having achieved remission (principal); D50.9 Iron deficiency anemia, unspecified; I48.91 Unspecified atrial fibrillation; I10 Essential (primary) hypertension; E66.9 Obesity, unspecified; E21.3 Hyperparathyroidism, unspecified; J44.9 Chronic obstructive pulmonary disease, unspecified; K21.9 Gastro-esophageal reflux disease without esophagitis
CPT/HCPCS: 80053; 82232; 83883; 85025

== ENCOUNTER 2023-09-22 10:18 | Outpatient (RCR) | payer MEDICARE, OTHER ==
[2023-09-19 08:36] LABS: BASOPHILS # (AUTO) 0.1 10^3/uL (0.0-0.1); BASOPHILS % (AUTO) 2 % (0-10); EOSINOPHILS # (AUTO) 0.2 10^3/uL (0.0-0.3); EOSINOPHILS % (AUTO) 3 % (0-10); HEMATOCRIT 42 % (40-54); HEMOGLOBIN 14.1 g/dL (13.3-17.7); LYMPHOCYTES # (AUTO) 1.3 10^3/uL (1.0-4.0); LYMPHOCYTES % (AUTO) 24 % (12-44); MEAN CORPUSCULAR HEMOGLOBIN 29 pg (25-34); MEAN CORPUSCULAR HGB CONC 34 g/dL (32-36); MEAN CORPUSCULAR VOLUME 85 fL (80-99); MEAN PLATELET VOLUME 8.6 fL (9.0-12.2); MONOCYTES # (AUTO) 0.6 10^3/uL (0.0-1.0); MONOCYTES % (AUTO) 12 % (0-12); NEUTROPHILS # (AUTO) 3.1 10^3/uL (1.8-7.8); NEUTROPHILS % (AUTO) 58 % (42-75); PLATELET COUNT 104 10^3/uL (130-400); WHITE BLOOD COUNT 5.4 10^3/uL (4.3-11.0)
[2023-09-19 09:05] LABS: ALBUMIN 3.7 GM/DL (3.2-4.5); BILIRUBIN,TOTAL 1.1 MG/DL (0.1-1.0); CALCIUM 8.4 MG/DL (8.5-10.1); CREATININE SERUM 0.74 MG/DL (0.60-1.30); POTASSIUM 3.6 MMOL/L (3.6-5.0); TOTAL PROTEIN 5.6 GM/DL (6.4-8.2)
== END 2023-09-30 | disposition home or self-care (01) ==
LOC: ONC 10:18
PROVIDERS: ATTEND Internal Medicine Hematology & Oncology
DX: C90.00 Multiple myeloma not having achieved remission (principal); D50.9 Iron deficiency anemia, unspecified; I48.91 Unspecified atrial fibrillation; I10 Essential (primary) hypertension; E66.9 Obesity, unspecified; E21.3 Hyperparathyroidism, unspecified; J44.9 Chronic obstructive pulmonary disease, unspecified; K21.9 Gastro-esophageal reflux disease without esophagitis
CPT/HCPCS: 36415; 80053; 82784; 83883; 84155; 84165; 85025; 99214